=== PATIENT | female | born 1950 | race African-American/Black ===

== ENCOUNTER 2016-07-10 13:36 | Inpatient (IN) | payer OTHER ==
[2016-07-10 13:42] VITALS: BMI 35.9
[2016-07-10] MEDS ORDERED: ONDANSETRON 4 MG/2 ML VIAL IVPUSH ONE (14:34)
[2016-07-10] MEDS ORDERED: SODIUM CHLORIDE 1,000 ML IV STA (14:34)
--- NOTE | 2016-07-10 14:34 | PDOC ---
History of Present Illness - General History Source: Patient Exam Limitations: No Limitations - History of Present Illness Initial Comments: 07/10/16 14:59 The patient is a 66-year-old woman, accompanied by her best friend, with a significant past medical history of hypertension, ovarian cancer (chemotherapy was August 2015; on remission) and scoliosis who presents to the emergency department via walk-in for further evaluation of generalized weakness today. Patient reports several complaints but her most concerning is a rash that she has developed on her upper chest. She reports that it is pruritic. No new foods , soaps, detergents. No new medications. She also reports feeling generally weak with associated symptoms of nausea, loss of appetite, lightheadedness, slight headache and a low blood pressure over the course of a few days. She denies any sick contacts. No fever, chills, chest pain, cough, shortness of breath. Allergies: Latex Past Surgical History: Bilateral meniscal tear surgery. Lap band surgery. Social History: Former smoker (quit approximately 22 years ago). Social EtOH use. No recreational drug use. Primary Care Physician: Dr. Maye Alvarez <Ivelisse Juárez - Last Filed: 07/10/16 15:29> - General History Source: Patient, Old Records Exam Limitations: No Limitations <Kenyatta Mcghee - Last Filed: 07/10/16 16:01> - General Chief Complaint: Pain Stated Complaint: BODYACHES Time Seen by Provider: 07/10/16 13:50 Past History <Ivelisse Juárez - Last Filed: 07/10/16 15:29> - Past Medical History Anemia: No Asthma: No Cancer: Yes (OVARIAN) Cardiac Disorders: No CVA: No COPD: No CHF: No Dementia: No Diabetes: No GI Disorders: No Disorders: No HTN: Yes Hypercholesterolemia: No Liver Disease: No Seizures: No Thyroid Disease: No - Surgical History Abdominal Surgery: Yes (LAP BAND 2002) Appendectomy: No Cardiac Surgery: No Cholecystectomy: No Lung Surgery: No Neurologic Surgery: No Orthopedic Surgery: No - Psycho/Social/Smoking Cessation Hx Anxiety: No Suicidal Ideation: No Smoking History: Former smoker Have you smoked in the past 12 months: No If you are a former smoker, when did you quit?: 22 YRS AGO Information on smoking cessation initiated: No Hx Alcohol Use: Yes (SOCIAL) Drug/Substance Use Hx: No Substance Use Type: None Hx Substance Use Treatment: No <LitzyKenyatta - Last Filed: 07/10/16 16:01> - Past Medical History Allergies/Adverse Reactions: Allergies Allergy/AdvReac Type Severity Reaction Status Date / Time latex AdvReac Mild Itching Verified 07/10/16 13:42 Home Medications: Ambulatory Orders Atenolol [Tenormin -] 50 mg PO DAILY 05/07/11 Hydrochlorothiazide [Hctz] 12.5 mg PO DAILY 03/20/12 Simvastatin [Zocor -] 10 mg PO HS 05/19/13 Tramadol HCl 50 mg PO TID 05/19/13 Oxycodone HCl/Acetaminophen [Percocet 5-325 mg Tablet -] 1 - 2 tab PO Q4H #20 tablet 05/20/13 Review of Systems - Review of Systems Comments:: 07/10/16 15:09 CONSTITUTIONAL: Present: Fever. Generalized weakness. Loss of appetite. Absent: chills, diaphoresis, malaise HEENT: Absent: rhinorrhea, nasal congestion, throat pain, throat swelling, difficulty swallowing, mouth swelling, ear pain, eye pain, visual Changes CARDIOVASCULAR: Absent: chest pain, syncope, palpitations, irregular heart rate , lightheadedness, peripheral edema RESPIRATORY: Absent: cough, shortness of breath, dyspnea with exertion, orthopnea, wheezing, stridor, hemoptysis GASTROINTESTINAL:Absent: abdominal pain, abdominal distension, nausea, vomiting , diarrhea, constipation, melena, hematochezia GENITOURINARY: Absent: dysuria, frequency, urgency, hesitancy, hematuria, flank pain, genital pain MUSCULOSKELETAL: Absent: myalgia, arthralgia, joint swelling SKIN: Absent: rash, itching, pallor HEMATOLOGIC/IMMUNOLOGIC: Absent: easy bleeding, easy bruising, lymphadenopathy, frequent infections ENDOCRINE:Absent: unexplained weight gain, unexplained weight loss, heat intolerance, cold intolerance NEUROLOGIC: Absent: headache, focal weakness or paresthesias, dizziness, unsteady gait, seizure, mental status changes, bladder or bowel incontinence PSYCHIATRIC: Absent: anxiety, depression, suicidal or homicidal ideation, hallucinations <Ivelisse Juárez - Last Filed: 07/10/16 15:29> *Physical Exam - Vital Signs Last Vital Signs Temp Pulse Resp BP Pulse Ox 98.0 F 77 20 105/56 99 07/10/16 13:38 07/10/16 13:38 07/10/16 13:38 07/10/16 13:38 07/10/16 13:38 - Physical Exam Comments: 07/10/16 15:12 GENERAL: Well developed, well nourished. Awake and alert. No acute distress. HEENT: Normocephalic, atraumatic. PERRLA, EOMI. No conjunctival pallor. Sclera are non-icteric. Moist mucous membranes. Oropharynx is clear. NECK: Supple. Full ROM. No JVD. CARDIOVASCULAR: Regular rate and rhythm. No murmurs, rubs, or gallops. PULMONARY: No evidence of respiratory distress. Lungs clear to auscultation bilaterally. No wheezing, rales or rhonchi. ABDOMINAL: Soft. There is some epigastric and right upper quadrant tenderness without rebound or guarding. Non-distended. No organomegaly. Normoactive bowel sounds. MUSCULOSKELETAL: Normal range of motion at all joints. No bony deformities or tenderness. No CVA tenderness. EXTREMITIES: No cyanosis. No clubbing. No edema. No calf tenderness. SKIN: There are several groups of raised clusters around the base of her anterior neck. No jaundice. NEUROLOGICAL: Alert, awake, appropriate. Cranial nerves 2-12 intact. Normal speech. PSYCHIATRIC: Cooperative. Good eye contact. Appropriate mood and affect. <Ivelisse Juárez - Last Filed: 07/10/16 15:29> - Vital Signs Last Vital Signs Temp Pulse Resp BP Pulse Ox 98.0 F 77 20 105/56 99 07/10/16 13:38 07/10/16 13:38 07/10/16 13:38 07/10/16 13:38 07/10/16 13:38 <Kenyatta Mcghee - Last Filed: 07/10/16 16:01> ED Treatment Course - LABORATORY CBC & Chemistry Diagram: 07/10/16 15:15 07/10/16 15:15 - RADIOLOGY Radiograph Interpretation: 07/10/16 15:29 EXAM: RAD/CHEST X-RAY PORTABLE IMPRESSION: Since 03/12/2013, there is an apical lordotic projection but clear lungs and normal mediastinum. An acute process is not seen. The bones and soft tissues are intact <Ivelisse Juárez - Last Filed: 07/10/16 15:29> - LABORATORY CBC & Chemistry Diagram: 07/10/16 15:15 07/10/16 15:15 <Kenyatta Mcghee - Last Filed: 07/10/16 16:01> Medical Decision Making - Medical Decision Making 07/10/16 14:32 66-year-old female with history of hypertension and ovarian cancer status post hysterectomy and chemotherapy presents to the emergency Department with complaints of generalized weakness, dizziness, nausea and epigastric pain and rash to her upper chest. Differential diagnosis includes but is not limited to: Gastritis, pancreatitis, GB disease, ACS, dehydration, electrolyte abnormality, anemia, toxic/metabolic derangement, infection. Plan: 1. Labs 2. EKG 3. IV fluids for hydration 4. Urine analysis 5. Chest x-ray 6. Observe and reevaluate 07/10/16 16:00 Addendum: labs were reviewed and are noted in the EMR. The LFT's are elevated. I have ordered an ultrasound of the abdomen to assess the liver and gall bladder. Will observe and re-evaluate. <Kenyatta Mcghee - Last Filed: 07/10/16 16:01> *DC/Admit/Observation/Transfer - Attestations Scribe Attestion: 07/10/16 15:14 Documentation prepared by Ivelisse Juárez, acting as medical staff manager for Kenyatta Mcghee MD. <Ivelisse Juárez - Last Filed: 07/10/16 15:29> - Attestations Physician Attestion: 07/10/16 14:33 I, Dr. Kenyatta Mcghee, attest that the scribes documentation that appears above has been prepared under my direction and personally reviewed by me in its entirety. I confirmed that the note above accurately reflects all work, treatment, procedures, and medical decision-making performed by me. <Kenyatta Mcghee - Last Filed: 07/10/16 16:01> Diagnosis at time of Disposition: Weakness - Referrals Referrals: Maye Leroy MD [Primary Care Provider] -
[2016-07-10] MEDS ORDERED: ONDANSETRON 4 MG/2 ML VIAL ONE (15:20)
[2016-07-10 15:27] LABS: BASOPHIL 0.2 % (0-2.0); EOSINOPHIL 18.4 % (0-4.5); MCH 32.5 pg (25.7-33.7); MCHC 32.6 g/dl (32.0-36.0); MEAN CELL VOLUME 99.5 fl (80-96); MEAN PLT VOLUME 8.7 fl (7.5-11.1); NEUTROPHILS 50.8 % (42.8-82.8); PLATELET COUNT 99 K/MM3 (134-434); RDW 13.5 % (11.6-15.6); WHITE BLOOD COUNT 3.7 K/mm3 (4.0-10.0)
[2016-07-10 15:47] LABS: ALBUMIN 3.6 g/dl (3.4-5.0); ANION GAP 11 (8-16); BILIRUBIN,TOTAL 1.1 mg/dL (0.2-1.0); CALCIUM 8.8 mg/dL (8.5-10.1); CO2 26 mmol/L (21-32); CREATININE 1.5 mg/dL (0.55-1.02); GLUCOSE,RANDOM 78 mg/dL (74-106); SGOT/AST 145 U/L (15-37); SGPT/ALT 133 U/L (12-78); TOT PROT 7.7 g/dl (6.4-8.2)
[2016-07-10 15:49] LABS: URINE APPEARANCE CLEAR; URINE BILIRUBIN NEGATIVE (NEGATIVE); URINE BLOOD NEGATIVE (NEGATIVE); URINE GLUCOSE (UA) NEGATIVE (NEGATIVE); URINE KETONE NEGATIVE (NEGATIVE); URINE NITRITE NEGATIVE (NEGATIVE); URINE PROTEIN NEGATIVE (NEGATIVE); URINE UROBILINOGEN 4.0 E.U/dl E.U./dl (0.2-1.0)
[2016-07-10 15:50] LABS: ALK PHOS 144 U/L (45-117); TROPONIN I < 0.02 ng/ml (0.00-0.05)
[2016-07-10 16:05] LABS: URINE LEUK ESTERASE TRACE (NEGATIVE)
[2016-07-10 16:06] LABS: URINE COLOR YELLOW
[2016-07-10 16:09] LABS: URINE BACTERIA RARE /hpf (NONE SEEN); URINE HYALINE CAST 111 /lpf; URINE MUCUS RARE; URINE RBC 3 /hpf (0-3); URINE WBC 26 /hpf (3-5)
--- NOTE | 2016-07-10 16:10 | EKG ---
Test Reason : Blood Pressure : / mmHG Vent. Rate : 073 BPM Atrial Rate : 073 BPM P-R Int : 164 ms QRS Dur : 094 ms QT Int : 376 ms P-R-T Axes : 037 -05 046 degrees QTc Int : 414 ms NORMAL SINUS RHYTHM MODERATE VOLTAGE CRITERIA FOR LVH, MAY BE NORMAL VARIANT CANNOT RULE OUT SEPTAL INFARCT , AGE UNDETERMINED ABNORMAL ECG WHEN COMPARED WITH ECG OF 19-MAY-2009 09:30, MINIMAL CRITERIA FOR SEPTAL INFARCT ARE NOW PRESENT NONSPECIFIC T WAVE ABNORMALITY NOW EVIDENT IN ANTERIOR LEADS Confirmed by ABHISHEK NARANJO MD ([id number]) on 07/10/2016 4:10:04 PM Referred By: Confirmed By:ABHISHEK NARANJO MD
[2016-07-10] MEDS ORDERED: METOCLOPRAMIDE HCL INJECTION 10 MG/2 ML VIAL ONE (18:16)
--- NOTE | 2016-07-10 18:32 | PDOC ---
*Physical Exam - Vital Signs Last Vital Signs Temp Pulse Resp BP Pulse Ox 98.0 F 79 19 98/56 96 07/10/16 13:38 07/10/16 17:38 07/10/16 17:38 07/10/16 17:38 07/10/16 17:38 ED Treatment Course - LABORATORY CBC & Chemistry Diagram: 07/14/16 06:10 07/13/16 08:00 - ADDITIONAL ORDERS Additional order review: Laboratory Results 07/10/16 07/10/16 15:39 15:15 Sodium 136 Potassium 4.0 Chloride 99 Carbon Dioxide 26 Anion Gap 11 BUN 15 Creatinine 1.5 H Creat Clearance w eGFR 34.74 Random Glucose 78 D Calcium 8.8 Total Bilirubin 1.1 H D AST 145 H D ALT 133 H D Alkaline Phosphatase 144 H D Creatine Kinase 55 Troponin I < 0.02 Total Protein 7.7 Albumin 3.6 Lipase 202 Urine Color Yellow Urine Appearance Clear Urine pH 5.0 Ur Specific [place] Urine Protein Negative Urine Glucose (UA) Negative Urine Ketones Negative Urine Blood Negative Urine Nitrite Negative Urine Bilirubin Negative Urine Urobilinogen 4.0 e.u/dl H Ur Leukocyte Esterase Trace H D Urine RBC 3 Urine WBC 26 Ur Epithelial Cells Many Urine Bacteria Rare Hyaline Casts 111 Urine Mucus Rare 07/10/16 15:15 RBC 3.32 L MCV 99.5 H MCHC 32.6 RDW 13.5 MPV 8.7 Neutrophils % 50.8 D Lymphocytes % 22.0 D Monocytes % 8.6 Eosinophils % 18.4 H D Basophils % 0.2 - Medications Given in the ED: ED Medications Discontinued Medications Generic Name Dose Route Start Last Admin Trade Name Nura PRN Reason Stop Dose Admin Diphenhydramine HCl 25 mg 07/10/16 15:53 07/10/16 15:45 Benadryl Injection - IVPUSH 07/10/16 15:54 25 mg ONCE ONE Administration Sodium Chloride 1,000 mls @ 1,000 mls/hr 07/10/16 14:34 07/10/16 15:27 Normal Saline - IV 07/10/16 15:33 1,000 mls/hr ASDIR STA Administration Ondansetron HCl 4 mg 07/10/16 14:34 07/10/16 15:27 Zofran Injection IVPUSH 07/10/16 14:35 4 mg ONCE ONE Administration Medical Decision Making - Medical Decision Making 07/10/16 18:30 This patient was signed out to me She is a 66 yo F wiht a history of lung cancer and pancreatic mass Presenting to the Er with a complaint of abdominal pain and nausea No fevers or chills 07/10/16 18:35 Laboratory Tests 05/28/16 05/28/16 07/10/16 09:49 09:49 15:15 WBC 7.0 D 3.7 L D Hgb 11.4 10.8 Hct 33.9 33.1 Plt Count 181 99 L D Sodium Potassium Chloride Carbon Dioxide BUN 17 Creatinine 1.5 H D Total Bilirubin 0.7 AST 19 D ALT 23 Alkaline Phosphatase 88 Urine Ketones Urine Blood Ur Leukocyte Esterase Urine RBC Urine WBC Ur Epithelial Cells 07/10/16 07/10/16 15:15 15:39 WBC Hgb Hct Plt Count Sodium 136 Potassium 4.0 Chloride 99 Carbon Dioxide 26 BUN 15 Creatinine 1.5 H Total Bilirubin 1.1 H D AST 145 H D ALT 133 H D Alkaline Phosphatase 144 H D Urine Ketones Negative Urine Blood Negative Ur Leukocyte Esterase Trace H D Urine RBC 3 Urine WBC 26 Ur Epithelial Cells Many Labs notable for LFT abnormalities Pt remains "itchy" and nauseaous Pending US Pt continues not have nausea and itching 07/10/16 19:27 Pt states her itching has continued Case reviewed with Dr. Anand Will admit to med surg Requesting CT of the abdomen and pelvis to r/o Mass Pt sent for CT with IV 07/10/16 20:02 Creatinine 1.[address] without contrast 07/10/16 21:02 CT preliminarily read as negative Will admit as pt is still nauseous, still has pain, can not tolerate po *DC/Admit/Observation/Transfer Diagnosis at time of Disposition: Weakness, Transaminitis - Discharge Dispostion Condition at time of disposition: Stable Admit: Yes - Referrals - Patient Instructions - Post Discharge Activity
[2016-07-10] MEDS ORDERED: METOCLOPRAMIDE HCL INJECTION 10 MG/2 ML VIAL IVPB ONE (18:38)
[2016-07-11] MEDS ORDERED: SODIUM CHLORIDE 1,000 ML IV SCH (01:40)
[2016-07-11] MEDS ORDERED: ZOLPIDEM TARTRATE 5 MG TABLET PO ONE (02:00)
[2016-07-11] MEDS ORDERED: LEVOFLOXACIN 500 MG IVPB 100 ML IVPB SCH (02:00)
[2016-07-11] MEDS: ONDANSETRON 4 MG/2 ML VIAL IVPB PRN (02:25)
[2016-07-11 08:21] LABS: ALBUMIN 3.3 g/dl (3.4-5.0)
[2016-07-11 08:25] LABS: BILIRUBIN,TOTAL 1.6 mg/dL (0.2-1.0); COCKROFT - GAULT 63.8945; CREATININE 1.6 mg/dL (0.55-1.02); TOT PROT 6.9 g/dl (6.4-8.2)
[2016-07-11 08:35] LABS: MCH 33.2 pg (25.7-33.7); MCHC 33.4 g/dl (32.0-36.0); MEAN CELL VOLUME 99.3 fl (80-96); MEAN PLT VOLUME 8.5 fl (7.5-11.1); PLATELET COUNT 82 K/MM3 (134-434); RDW 13.6 % (11.6-15.6); WHITE BLOOD COUNT 3.8 K/mm3 (4.0-10.0)
--- NOTE | 2016-07-11 09:30 | PN ---
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 Last time I saw her she was receiving therapy of Ovarian cancer. Had surgery and chemotherapy last August 2015 and thought to be in remission. Over a week ago had an Epidural injection for low back pain chronic Dr Carl pain management. Went to [place] with a friend had a good trip returned the . Last week. 3 days ago light headed nausea generalized weakness fever chills yesterday. Also noted is a rash on her ant neck itchy which is new little bit on her forearm right No couph coryza joint pains urinary complaints Has back pain but no abd pain No pets hobbies Former smoker no drug use exposure to persons known illness - Current Medication List Current Medications: Active Medications Acetaminophen (Tylenol -) 650 mg PO Q6H PRN PRN Reason: FEVER OR PAIN Levofloxacin (Levaquin 500 Mg Premixed Ivpb -) 100 mls @ 100 mls/hr IVPB DAILY AUG[place]O Last Admin: 07/11/16 02:25 Dose: 100 mls/hr Potassium Chloride/Dextrose/Sod Cl (D5-1/2ns+20 Meq Kcl -) 1,000 mls @ 100 mls/ hr IV ASDIR [place] Ondansetron HCl (Zofran Injection) 4 mg IVPB Q8H PRN PRN Reason: NAUSEA AND/OR VOMITING Last Admin: 07/11/16 02:25 Dose: 4 mg Zolpidem Tartrate (Ambien -) 5 mg PO HS PRN PRN Reason: INSOMNIA - Objective Vital Signs: Vital Signs Temperature 98.6 F 07/11/16 06:13 Pulse Rate 82 07/11/16 06:13 Respiratory Rate 20 07/11/16 06:13 Blood Pressure 115/73 07/11/16 06:13 O2 Sat by Pulse Oximetry (%) 100 07/11/16 00:05 Constitutional: Yes: Well Nourished, No Distress Eyes: No: Conjunctiva Clear HENT: Yes: WNL, Atraumatic, Normocephalic. No: Tonsillar Exudate Neck: Yes: WNL, Supple. No: Lymphadenopathy Cardiovascular: Yes: Regular Rate and Rhythm, S1, S2. No: Murmur, Rub Respiratory: Yes: WNL, Regular, CTA Bilaterally Gastrointestinal: Yes: WNL, Normal Bowel Sounds, Soft. No: Splenomegaly, Tenderness, Tenderness, Rebound Genitourinary: Yes: WNL. No: CVA Tenderness - Left, CVA Tenderness - Right Extremities: No: Cold, Cool, Cyanosis Edema: No Integumentary: Yes: Other (Macules discrete anterior neck samlll one right foremarm) Labs: CBC, BMP 07/11/16 07:45 07/11/16 06:00 Problem List - Problems (1) Transaminitis Code(s): R74.0 - NONSPEC ELEV OF LEVELS OF TRANSAMNS & LACTIC ACID DEHYDRGNSE (2) Fever Code(s): R50.9 - FEVER, UNSPECIFIED (3) Viral syndrome Code(s): B34.9 - VIRAL INFECTION, UNSPECIFIED Assessment/Plan Laboratory Tests 07/10/16 07/10/16 07/10/16 15:15 15:15 15:39 WBC 3.7 L D Plt Count 99 L D Monocytes % 8.6 Eosinophils % 18.4 H D Basophils % 0.2 Total Bilirubin 1.1 H D AST 145 H D ALT 133 H D Alkaline Phosphatase 144 H D Troponin I < 0.02 Total Protein 7.7 Albumin 3.6 Urine RBC 3 Assessment Fever with chills elevated LFTS rash pancytopenia eosinophilia ? While the obvious would include cholecystitis the rash would be against this. Alternatively I feel she may have a viral disease which I feel is more likely. Has no respiratory complaints Plan Blood and urine cultures ESR CRP HIV EBV CMV Hepatitis markers Ceftriaxone and metronidazole Willis ORTIZ
[2016-07-11 10:54] LABS: C-REACTIVE PROTEIN 8.7 MG/DL (0.00-0.3)
[2016-07-11] MEDS ORDERED: METRONIDAZOLE 500 MG PREMIXED 100 ML IVPB SCH (11:00)
[2016-07-11 11:51] LABS: HIV 1 & 2 AB NEGATIVE; HIV 1 AGp24 NEGATIVE
--- NOTE | 2016-07-11 12:02 | HP ---
Admitting History and Physical - Primary Care Physician PCP: Maye Leroy - Admission History of Present Illness: dictated . - Smoking History Smoking history: Former smoker Have you smoked in the past 12 months: No If you are a former smoker, when did you quit?: 22 YRS AGO - Alcohol/Substance Use Hx Alcohol Use: Yes (SOCIAL) Home Medications - Allergies Allergies/Adverse Reactions: Allergies Allergy/AdvReac Type Severity Reaction Status Date / Time latex AdvReac Mild Itching Verified 07/10/16 13:42 - Home Medications Home Medications: Ambulatory Orders Atenolol [Tenormin -] 50 mg PO DAILY 05/07/11 Cyanocobalamin (Vitamin B-12) [Vitamin B-12] 0 mcg PO ASDIR 07/10/16 Diphenhydramine [Benadryl -] 50 mg PO TID 07/10/16 Ferrous Sulfate 0 mg PO ASDIR 07/10/16 Folic Acid 0.8 mg PO ASDIR 07/10/16 Furosemide [Lasix -] 40 mg PO DAILY 07/10/16 Garlic [Garlic Oil] 1,000 mg PO ASDIR 07/10/16 Losartan Potassium [Cozaar -] 50 mg PO ASDIR 07/10/16 Meloxicam [Mobic] 15 mg PO DAILY 07/10/16 [place]-3S/Dha/Epa/Fish Oil [Fish Oil 1,200 mg Softgel] 1 each PO ASDIR 07/10/16 Ondansetron [Zofran -] 4 mg PO TID 07/10/16 Potassium Chloride 20 meq PO ASDIR 07/10/16 Pregabalin [Lyrica -] 75 mg PO BID 07/10/16 Rosuvastatin Calcium 5 mg PO ASDIR 07/10/16 Sulfasalazine [Sulfas[address] Dr] 500 mg PO ASDIR 07/10/16 Tramadol HCl [Ultram -] 150 mg PO BID 07/10/16 Zolpidem Tartrate [Ambien] 10 mg PO HS 07/10/16 Physical Examination Vital Signs: Vital Signs Temperature 100 F H 07/11/16 11:52 Pulse Rate 85 07/11/16 08:10 Respiratory Rate 20 07/11/16 08:10 Blood Pressure 105/58 07/11/16 08:10 O2 Sat by Pulse Oximetry (%) 100 07/11/16 00:05 Labs: CBC, BMP 07/11/16 07:45 07/11/16 06:00
--- NOTE | 2016-07-11 12:04 | PN ---
Progress Note, Physician - Current Medication List Current Medications: Active Medications Acetaminophen (Tylenol -) 650 mg PO Q6H PRN PRN Reason: FEVER OR PAIN Potassium Chloride/Dextrose/Sod Cl (D5-1/2ns+20 Meq Kcl -) 1,000 mls @ 100 mls/ hr IV ASDIR A[place] Ceftriaxone Sodium (Rocephin 2gm Ivpb (Pre-Docked)) 100 mls @ 200 mls/hr IVPB DAILY A[place]O Last Admin: 07/11/16 10:57 Dose: 200 mls/hr Ondansetron HCl (Zofran Injection) 4 mg IVPB Q8H PRN PRN Reason: NAUSEA AND/OR VOMITING Last Admin: 07/11/16 02:25 Dose: 4 mg Pregabalin (Lyrica -) 75 mg PO BID [place] Sulfasalazine (Azulfidine En-Tabs -) 500 mg PO BID [place] Tramadol HCl (Ultram -) 50 mg PO Q8H PRN PRN Reason: PAIN Zolpidem Tartrate (Ambien -) 5 mg PO HS PRN PRN Reason: INSOMNIA - Objective Vital Signs: Vital Signs Temperature 100 F H 07/11/16 11:52 Pulse Rate 85 07/11/16 08:10 Respiratory Rate 20 07/11/16 08:10 Blood Pressure 105/58 07/11/16 08:10 O2 Sat by Pulse Oximetry (%) 100 07/11/16 00:05 Labs: CBC, BMP 07/11/16 07:45 07/11/16 06:00 Problem List - Problems (1) Fever Code(s): R50.9 - FEVER, UNSPECIFIED (2) Transaminitis Code(s): R74.0 - NONSPEC ELEV OF LEVELS OF TRANSAMNS & LACTIC ACID DEHYDRGNSE (3) Viral syndrome Code(s): B34.9 - VIRAL INFECTION, UNSPECIFIED (4) Weakness Code(s): R53.1 - WEAKNESS (5) Pancytopenia Code(s): D61.818 - OTHER PANCYTOPENIA (6) Rash Code(s): R21 - RASH AND OTHER NONSPECIFIC SKIN ERUPTION
[2016-07-11] MEDS: traMADol HCL 50 MG TABLET PO PRN ×2 (13:34→21:36)
[2016-07-11] MEDS: ACETAMINOPHEN 325 MG TABLET (FP) PO PRN ×2 (13:34→22:49)
--- NOTE | 2016-07-11 13:39 | HP ---
DATE OF ADMISSION: 07/10/2016 This patient, a 66-year-old pleasant female, is admitted to the hospital when she presented to emergency room yesterday with a chief complaint of not feeling well for the last 2 or 3 days, having nausea, rash on the upper chest, as well as generalized weakness. Patient denies any fevers or such. Patient also complained of loss of appetite, lightheadedness, slight headache, and also said that her pressure was running low for the last few days. Patient denied any fever, as I mentioned. Workup in the emergency room showed elevated liver enzymes. Ultrasound of the abdomen was done, which was unremarkable except cholelithiasis. CT of the abdomen and pelvis was also done, which also showed cholelithiasis but no acute pathology. Patient admitted to the hospital as she continued to not feel well, as well as having fever also. Cultures were sent and antibiotics were started. The patient's past medical history is significant for ovarian CA status post chemotherapy in August 2015 and currently she is in remission. Other past medical history is significant for hypertension, overweight. Past surgical history is significant for bilateral meniscus TSLV, as well as lap band surgery. Patient is a former smoker, quit about 22 years ago. Patient does not drink. Patient has allergies to LATEX. FAMILY HISTORY: Nothing contributory. SOCIAL HISTORY: As I mentioned, she is a former smoker. She drinks only socially. No drugs. She recently traveled to [place]. REVIEW OF SYMPTOMS: Positive for nausea and chills and weakness as well as rash. Denies chest pain. Denies abdominal pain. Denies any vomiting. Denies any urinary burning although reports dark-colored urine. Patient seen by me today on the floor and chart reviewed. Case was discussed with the emergency room physician last night also. I also reviewed patient's home medications, which includes Tenormin 50 mg daily, hydrochlorothiazide 12.5 mg daily, fish oil, Ambien 10 mg daily, Lasix 40 mg daily, multiple vitamin, losartan 50 mg daily, Lyrica 75 mg daily, B12 supplement, Crestor 5 mg daily, folic acid 800 mg daily, sulfasalazine 500 mg extended tablet daily, tramadol 50 mg p.r.n., as well as meloxicam 15 mg daily. Reviewing the medicines, I discussed with the patient and patient also tells me that she also has history of rheumatoid arthritis as well as a history of lumbar radiculopathy. PHYSICAL EXAMINATION: General: She is conscious, cooperative, not in distress, alert and awake. Neck: Supple. There is no lymphadenopathy. No carotid bruit. Trachea midline. Thyroid not enlarged. Eyes: Sclerae are not icteric. Pupils are reactive to light and accommodation. Heart: Heart sounds are regular. Lungs: Clear to auscultation. Abdomen: Soft, nontender. Extremities: No edema. Neurological: She is alert and awake, nonfocal. Her blood work done in the emergency room showed white count of 3.7, hemoglobin of 10.8, hematocrit 33.1, platelets were significant for 99,000, and repeat platelets today 82,000, and hemoglobin 9.6, hematocrit 28.6. Chemistries were significant for total bilirubin 1.1 yesterday and 1.6 today, AST 155, today ALT 132 and alkaline phosphatase 144. CRP is elevated 8.7. Cardiac enzymes are negative. Lipase is normal. Urine shows WBC 26. Serology for HIV is negative. Ultrasound of the abdomen as well as CAT scan, as I mentioned, were significant for cholelithiasis. Chest x-ray did not show any acute pathology. ASSESSMENT AND PLAN: Patient, a 67-year-old female with past medical history as mentioned, is admitted to the hospital with fever and chills with elevated liver enzymes. Patient also has rash as well as CBC significant for pancytopenia. Etiology to be determined, likely viral. Cultures are sent. Empiric antibiotics. I discussed case with Dr. Pedro also. Will discontinue Flagyl as there is no evidence of cholecystitis by exam as well as by CT scan. Further recommendations will be guided by clinical course. LISSY PLASENCIA M.D. [id number]
[2016-07-11] MEDS: D5-1/2NS+20 MEQ KCL - 1,000 ML IV SCH (13:45)
[2016-07-11] MEDS: ZOLPIDEM TARTRATE 5 MG TABLET PO PRN (21:36)
[2016-07-11] MEDS: PREGABALIN 75 MG CAPSULE PO SCH (21:36)
[2016-07-12 08:15] LABS: MCH 33.1 pg (25.7-33.7); MCHC 33.1 g/dl (32.0-36.0); MEAN CELL VOLUME 99.8 fl (80-96); PLATELET COUNT 90 K/MM3 (134-434); RDW 13.9 % (11.6-15.6); WHITE BLOOD COUNT 4.2 K/mm3 (4.0-10.0)
[2016-07-12] MEDS: ACETAMINOPHEN 325 MG TABLET (FP) PO PRN ×2 (08:27→18:38)
[2016-07-12 08:32] LABS: ALBUMIN 2.9 g/dl (3.4-5.0); CALCIUM 8.6 mg/dL (8.5-10.1); MAGNESIUM 1.8 mg/dL (1.8-2.4)
[2016-07-12] MEDS: D5-1/2NS+20 MEQ KCL - 1,000 ML IV SCH ×2 (08:32→19:30)
[2016-07-12 08:34] LABS: BILIRUBIN,TOTAL 2.1 mg/dL (0.2-1.0); COCKROFT - GAULT 85.1955; CREATININE 1.2 mg/dL (0.55-1.02); TOT PROT 6.5 g/dl (6.4-8.2)
--- NOTE | 2016-07-12 09:16 | PN ---
Progress Note (short form) - Note Progress Note: SUBJECTIVE: Patient seen and examined. Comfortable. Continues to have fever. No distress. Overall looks better. OBJECTIVE: Vital Signs 07/12/16 06:00 Temperature 98.8 F Pulse Rate 85 Respiratory 20 Rate Blood Pressure 106/66 Intake & Output 07/11/16 07/12/16 07/12/16 23:59 07:59 15:59 Intake Total 900 1200 Balance 900 1200 Intake: IV 1200 D5-1/2Ns+20 Meq KCl - 1, 1200 000 ml @ 100 mls/hr IV ASDIR [facility] Rx#:[id number] Oral 900 Other: Voiding Method Toilet # Unmeasured Voids Void 2 Bowel Movement No No Active Medications Acetaminophen (Tylenol -) 650 mg PO Q6H PRN PRN Reason: FEVER OR PAIN Last Admin: 07/12/16 08:27 Dose: 650 mg Potassium Chloride/Dextrose/Sod Cl (D5-1/2ns+20 Meq Kcl -) 1,000 mls @ 100 mls/ hr IV [facility]IR [facility] Last Admin: 07/12/16 08:32 Dose: 100 mls/hr Ceftriaxone Sodium (Rocephin 2gm Ivpb (Pre-Docked)) 100 mls @ 200 mls/hr IVPB DAILY [facility] Last Admin: 07/12/16 09:31 Dose: 200 mls/hr Ondansetron HCl (Zofran Injection) 4 mg IVPB Q8H PRN PRN Reason: NAUSEA AND/OR VOMITING Last Admin: 07/11/16 02:25 Dose: 4 mg Pregabalin (Lyrica -) 75 mg PO BID [facility] Last Admin: 07/12/16 09:31 Dose: 75 mg Sulfasalazine (Azulfidine En-Tabs -) 500 mg PO BID [facility] Last Admin: 07/12/16 09:32 Dose: 500 mg Tramadol HCl (Ultram -) 50 mg PO Q8H PRN PRN Reason: PAIN Last Admin: 07/12/16 09:32 Dose: 50 mg Zolpidem Tartrate (Ambien -) 5 mg PO HS PRN PRN Reason: INSOMNIA Last Admin: 07/11/16 21:36 Dose: 5 mg CBC, BMP 07/12/16 06:38 07/12/16 06:38 Laboratory Results - last 24 hr 07/11/16 07/11/16 07/11/16 06:00 10:00 10:00 WBC RBC Hgb Hct MCV MCHC RDW Plt Count MPV Neutrophils % Lymphocytes % Sodium Potassium Chloride Carbon Dioxide Anion Gap BUN Creatinine Creat Clearance w eGFR Random Glucose Calcium Magnesium Total Bilirubin AST ALT Alkaline Phosphatase C-Reactive Protein 8.7 H Cancelled Total Protein Albumin Monoscreen HIV 1&2 Antibody Screen Negative HIV P24 Antigen Negative 07/12/16 07/12/16 07/12/16 06:38 06:38 06:38 WBC 4.2 RBC 2.90 L Hgb 9.6 L Hct 28.9 L MCV 99.8 H MCHC 33.1 RDW 13.9 Plt Count 90 L MPV 9.0 Neutrophils % Y Lymphocytes % Y Sodium 140 Potassium 4.2 Chloride 104 Carbon Dioxide 23 Anion Gap 13 BUN 12 D Creatinine 1.2 H D Creat Clearance w eGFR 44.95 Random Glucose 122 H D Calcium 8.6 Magnesium 1.8 Total Bilirubin 2.1 H D AST 136 H ALT 134 H Alkaline Phosphatase 182 H D C-Reactive Protein Total Protein 6.5 Albumin 2.9 L Monoscreen Negative HIV 1&2 Antibody Screen HIV P24 Antigen Microbiology 07/11/16 02:00 Blood Culture - Preliminary Blood - Peripheral Venous NO GROWTH OBTAINED AFTER 24 HOURS, INCUBATION TO CONTINUE FOR 4 DAYS. 07/11/16 02:30 Blood Culture - Preliminary Blood - Peripheral Venous NO GROWTH OBTAINED AFTER 24 HOURS, INCUBATION TO CONTINUE FOR 4 DAYS. PHYSICAL EXAMINATION: Constitutional: Awake. Alert. Cooperative. No distress. Neck: Supple. Trachea midline. No lymphadenopathy. No carotid bruits. Thyroid is not enlarged. Eyes: Sclera non-icteric. PERRLA. Cardiovascular: Regular rate and rhythm. Respiratory: Clear to auscultation. Gastrointestinal: Soft. Non-tender. Extremities: No edema. Neurological: Awake. Alert. Nonfocal. ASSESSMENT & PLAN: - Continue antibiotics. - Follow up cultures and serology. - Hold blood pressure medications. - Ambulate. - Monitor liver function tests. - Will follow. Documentation prepared by Ivelisse Juárez, acting as a medical claims manager for Alisha Anand MD. <Ivelisse Juárez - Last Filed: 07/12/16 10:53> Problem List - Problems (1) Fever Code(s): R50.9 - FEVER, UNSPECIFIED (2) Transaminitis Code(s): R74.0 - NONSPEC ELEV OF LEVELS OF TRANSAMNS & LACTIC ACID DEHYDRGNSE (3) Viral syndrome Code(s): B34.9 - VIRAL INFECTION, UNSPECIFIED (4) Weakness Code(s): R53.1 - WEAKNESS (5) Pancytopenia Code(s): D61.818 - OTHER PANCYTOPENIA (6) Rash Code(s): R21 - RASH AND OTHER NONSPECIFIC SKIN ERUPTION <Alisha Anand - Last Filed: 07/12/16 09:16> - Problems (1) Fever Code(s): R50.9 - FEVER, UNSPECIFIED (2) Pancytopenia Code(s): D61.818 - OTHER PANCYTOPENIA (3) Rash Code(s): R21 - RASH AND OTHER NONSPECIFIC SKIN ERUPTION (4) Transaminitis Code(s): R74.0 - NONSPEC ELEV OF LEVELS OF TRANSAMNS & LACTIC ACID DEHYDRGNSE (5) Viral syndrome Code(s): B34.9 - VIRAL INFECTION, UNSPECIFIED <Ivelisse Juárez - Last Filed: 07/12/16 10:53>
[2016-07-12] MEDS ORDERED: PT OWN MED DRAWER 7, Y5N ONE (09:26)
[2016-07-12] MEDS: PREGABALIN 75 MG CAPSULE PO SCH ×2 (09:31→21:22)
[2016-07-12] MEDS: traMADol HCL 50 MG TABLET PO PRN ×2 (09:32→21:25)
[2016-07-12 13:34] LABS: METAMYELOCYTE 1 % (0-2); PLATELET ESTIMATE ADEQUATE (NORMAL)
--- NOTE | 2016-07-12 14:53 | PN ---
Progress Note, Physician Chief Complaint: ID Today patient informed me she has a history of Rheumatoid arthritis and has been on sulfasalazine whcih over the last few months has been increased in dose. Presently she has minimal joint complaints certainly nothing acute or different. Note rash now on her face which she says is pruritic along with neck rash and fevers which continue - Current Medication List Current Medications: Active Medications Acetaminophen (Tylenol -) 650 mg PO Q6H PRN PRN Reason: FEVER OR PAIN Last Admin: 07/12/16 08:27 Dose: 650 mg Potassium Chloride/Dextrose/Sod Cl (D5-1/2ns+20 Meq Kcl -) 1,000 mls @ 100 mls/ hr IV [facility]IR [facility] Last Admin: 07/12/16 08:32 Dose: 100 mls/hr Ceftriaxone Sodium (Rocephin 2gm Ivpb (Pre-Docked)) 100 mls @ 200 mls/hr IVPB DAILY [facility] Last Admin: 07/12/16 09:31 Dose: 200 mls/hr Ondansetron HCl (Zofran Injection) 4 mg IVPB Q8H PRN PRN Reason: NAUSEA AND/OR VOMITING Last Admin: 07/11/16 02:25 Dose: 4 mg Pregabalin (Lyrica -) 75 mg PO BID [facility] Last Admin: 07/12/16 09:31 Dose: 75 mg Sulfasalazine (Azulfidine En-Tabs -) 500 mg PO BID [facility] Last Admin: 07/12/16 09:32 Dose: 500 mg Tramadol HCl (Ultram -) 50 mg PO Q8H PRN PRN Reason: PAIN Last Admin: 07/12/16 09:32 Dose: 50 mg Zolpidem Tartrate (Ambien -) 5 mg PO HS PRN PRN Reason: INSOMNIA Last Admin: 07/11/16 21:36 Dose: 5 mg - Objective Vital Signs: Vital Signs Temperature 100.7 F H 07/12/16 10:00 Pulse Rate 100 H 07/12/16 10:00 Respiratory Rate 20 07/12/16 10:00 Blood Pressure 122/61 07/12/16 10:00 O2 Sat by Pulse Oximetry (%) 97 07/11/16 20:55 Constitutional: Yes: Well Nourished, No Distress Eyes: Yes: WNL, Conjunctiva Clear HENT: Yes: WNL, Atraumatic, Normocephalic. No: Pharyngeal Erythema, Tonsillar Exudate Neck: Yes: WNL Cardiovascular: Yes: Regular Rate and Rhythm, S1, S2. No: Murmur Respiratory: Yes: WNL, Regular, CTA Bilaterally. No: Rales, Rhonchi Gastrointestinal: Yes: WNL, Normal Bowel Sounds, Soft. No: Tenderness, Tenderness, Rebound Musculoskeletal: No: Joint Swelling Integumentary: Yes: Other (macules anterior neck and face) Labs: CBC, BMP 07/12/16 06:38 07/12/16 06:38 Problem List - Problems (1) Transaminitis Code(s): R74.0 - NONSPEC ELEV OF LEVELS OF TRANSAMNS & LACTIC ACID DEHYDRGNSE (2) Fever Code(s): R50.9 - FEVER, UNSPECIFIED (3) Viral syndrome Code(s): B34.9 - VIRAL INFECTION, UNSPECIFIED (4) Drug reaction Code(s): T88.7XXA - UNSP ADVERSE EFFECT OF DRUG OR MEDICAMENT, INIT ENCNTR Assessment/Plan Microbiology 07/11/16 11:30 Urine - Urine Clean Catch Urine Culture - Final NO GROWTH OBTAINED 07/11/16 02:30 Blood - Peripheral Venous Blood Culture - Preliminary NO GROWTH OBTAINED AFTER 24 HOURS, INCUBATION TO CONTINUE FOR 4 DAYS. 07/11/16 02:00 Blood - Peripheral Venous Blood Culture - Preliminary NO GROWTH OBTAINED AFTER 24 HOURS, INCUBATION TO CONTINUE FOR 4 DAYS. Laboratory Tests 07/10/16 07/10/16 07/10/16 15:15 15:15 15:39 WBC 3.7 L D Hgb Hct Neutrophils % Lymphocytes % Monocytes % Band Neutrophils ESR BUN 15 Creatinine 1.5 H Total Bilirubin AST ALT Alkaline Phosphatase C-Reactive Protein Urine RBC 3 Urine WBC 26 Urine Bacteria Rare Lyme Disease IgG/IgM CMV IgG Ab CMV IgM Ab Hepatitis A IgM Ab Hep Bs Antigen Hep Bs Antibody Hep B Core Total Ab Hepatitis C Ab (EIA) Monoscreen 07/11/16 07/11/16 07/12/16 06:00 07:45 06:38 WBC 3.8 L 4.2 Hgb 9.6 L Hct 28.9 L Neutrophils % 58.0 Lymphocytes % 21.0 Monocytes % 49.0 H D Band Neutrophils 2.0 D ESR BUN 18 Creatinine 1.6 H Total Bilirubin AST ALT Alkaline Phosphatase C-Reactive Protein 8.7 H Urine RBC Urine WBC Urine Bacteria Lyme Disease IgG/IgM CMV IgG Ab CMV IgM Ab Hepatitis A IgM Ab Hep Bs Antigen Hep Bs Antibody Hep B Core Total Ab Hepatitis C Ab (EIA) Monoscreen 07/12/16 07/12/16 07/12/16 06:38 06:38 06:38 WBC Hgb Hct Neutrophils % Lymphocytes % Monocytes % Band Neutrophils ESR 84 H BUN 12 D Creatinine 1.2 H D Total Bilirubin 2.1 H D AST 136 H ALT 134 H Alkaline Phosphatase 182 H D C-Reactive Protein Urine RBC Urine WBC Urine Bacteria Lyme Disease IgG/IgM CMV IgG Ab Pending CMV IgM Ab Pending Hepatitis A IgM Ab Hep Bs Antigen Hep Bs Antibody Hep B Core Total Ab Hepatitis C Ab (EIA) Monoscreen 07/12/16 07/12/16 07/12/16 06:38 06:38 06:38 WBC Hgb Hct Neutrophils % Lymphocytes % Monocytes % Band Neutrophils ESR BUN Creatinine Total Bilirubin AST ALT Alkaline Phosphatase C-Reactive Protein Urine RBC Urine WBC Urine Bacteria Lyme Disease IgG/IgM Pending CMV IgG Ab CMV IgM Ab Hepatitis A IgM Ab Hep Bs Antigen Hep Bs Antibody Pending Hep B Core Total Ab Pending Hepatitis C Ab (EIA) Monoscreen Negative 07/12/16 06:38 WBC Hgb Hct Neutrophils % Lymphocytes % Monocytes % Band Neutrophils ESR BUN Creatinine Total Bilirubin AST ALT Alkaline Phosphatase C-Reactive Protein Urine RBC Urine WBC Urine Bacteria Lyme Disease IgG/IgM CMV IgG Ab CMV IgM Ab Hepatitis A IgM Ab Pending Hep Bs Antigen Pending Hep Bs Antibody Hep B Core Total Ab Hepatitis C Ab (EIA) Pending Monoscreen Assessment Constellations of findings rash fevers renal insufficiency active urine sediment pancytopenia all c/w drug reaction to Sulfasalazine ( sulfa reaction) Plan Rheum consult STOP medication Discussed with PMD Thus far no evidence for Guanakito Pdero MD
[2016-07-12] MEDS: ONDANSETRON 4 MG/2 ML VIAL IVPB PRN (18:31)
[2016-07-12] MEDS: ZOLPIDEM TARTRATE 5 MG TABLET PO PRN (23:40)
[2016-07-13] MEDS: ACETAMINOPHEN 325 MG TABLET (FP) PO PRN ×3 (01:44→21:50)
[2016-07-13] MEDS: D5-1/2NS+20 MEQ KCL - 1,000 ML IV SCH ×4 (04:29→23:30)
--- NOTE | 2016-07-13 08:30 | CONSULT ---
Consult Consult Specialty:: Rheumatology - History of Present Illness History of Present Illness: 66 year old female with history of hypertension, spinal stenosis, S/P ovarian carcinoma -finished chemotherapy on July 2015, peripheral neuropathy (probably related to chemotherapy), and progressive inflammatory arthritis, MAXX positive and all other serology negative. Admitted with general malaise, weakness, fever and on admission she was found to have pancytopenia. HPI. The patient reports a 1 week history of general malaise, weakness, she had difficulty in standing up, malaise and fever. She also develoepda pruritic skin in chest and neck. Since admission she has had fever (yesterday 102.4) and laboratory work-up revealed CBC with WBC of 3.7, Hgb 10.8, platelets 99, AST 145, ALT 133 and ESR 84. Since admission she is feeling better, however continues having fever\. RE/O seronegative rheumatoid arthritis... I initially sawe the patient iin my office on 08/12/15. at that time she had, on the PE, 8 swollen and 4 tender joints. I started her on NSAIDs and on 05/26/16 she had progression of the disease with 20 swollen joints. I started the patient on Sulfasalazine, initially 500 mg BID and then [id number] to 1 gr BID. The pain and swelling improved. - History Source History Provided By: Patient - Past Medical History Cardio/Vascular: Yes: HTN Reproductive: Yes: Other (s/p ovarian carcinoma) Musculoskeletal: Yes: Other (Chronic low back pain. Spinal stenosis) - Alcohol/Substance Use Hx Alcohol Use: Yes (SOCIAL) - Smoking History Smoking history: Former smoker Have you smoked in the past 12 months: No If you are a former smoker, when did you quit?: 22 YRS AGO Home Medications - Allergies Allergies/Adverse Reactions: Allergies Allergy/AdvReac Type Severity Reaction Status Date / Time latex AdvReac Mild Itching Verified 07/10/16 13:42 - Home Medications Home Medications: Ambulatory Orders Atenolol [Tenormin -] 50 mg PO DAILY 05/07/11 Cyanocobalamin (Vitamin B-12) [Vitamin B-12] 0 mcg PO ASDIR 07/10/16 Diphenhydramine [Benadryl -] 50 mg PO TID 07/10/16 Ferrous Sulfate 0 mg PO ASDIR 07/10/16 Folic Acid 0.8 mg PO ASDIR 07/10/16 Furosemide [Lasix -] 40 mg PO DAILY 07/10/16 Garlic [Garlic Oil] 1,000 mg PO ASDIR 07/10/16 Losartan Potassium [Cozaar -] 50 mg PO ASDIR 07/10/16 Meloxicam [Mobic] 15 mg PO DAILY 07/10/16 [place]-3S/Dha/Epa/Fish Oil [Fish Oil 1,200 mg Softgel] 1 each PO ASDIR 07/10/16 Ondansetron [Zofran -] 4 mg PO TID 07/10/16 Potassium Chloride 20 meq PO ASDIR 07/10/16 Pregabalin [Lyrica -] 75 mg PO BID 07/10/16 Rosuvastatin Calcium 5 mg PO ASDIR 07/10/16 Sulfasalazine [Sulfasalazine Dr] 500 mg PO ASDIR 07/10/16 Tramadol HCl [Ultram -] 150 mg PO BID 07/10/16 Zolpidem Tartrate [Ambien] 10 mg PO HS 07/10/16 Review of Systems - Review of Systems Constitutional: reports: Fever, Malaise, Weakness Eyes: reports: No Symptoms HENT: reports: No Symptoms Neck: reports: No Symptoms Cardiovascular: reports: No Symptoms Respiratory: reports: No Symptoms Gastrointestinal: reports: Nausea, Vomiting Physical Exam Vital Signs: Vital Signs Temperature 99.9 F H 07/13/16 05:57 Pulse Rate 100 H 07/13/16 05:57 Respiratory Rate 20 07/13/16 05:57 Blood Pressure 122/73 07/13/16 05:57 O2 Sat by Pulse Oximetry (%) 97 07/11/16 20:55 Constitutional: Yes: Mild Distress Eyes: Yes: WNL HENT: Yes: WNL Neck: Yes: WNL Cardiovascular: Yes: WNL Respiratory: Yes: WNL Gastrointestinal: Yes: WNL Musculoskeletal: Yes: Other (No active joints) Labs: CBC, BMP 07/12/16 06:38 07/12/16 06:38 Laboratory Tests 07/10/16 07/12/16 07/12/16 15:39 06:00 06:38 ESR Total Bilirubin 2.1 H D AST 136 H ALT 134 H Alkaline Phosphatase 182 H D Total Protein 6.5 Albumin 2.9 L Urine Color Yellow Urine Appearance Clear Urine pH 5.0 Ur Specific [place] 1.015 Urine Protein Negative Urine Glucose (UA) Negative Urine Ketones Negative Urine Blood Negative Urine Nitrite Negative Urine Bilirubin Negative Urine Urobilinogen 4.0 e.u/dl H Ur Leukocyte Esterase Trace H D Urine RBC 3 Urine WBC 26 Ur Epithelial Cells Many Rheumatoid Factor < 10.0 07/12/16 06:38 ESR 84 H Total Bilirubin AST ALT Alkaline Phosphatase Total Protein Albumin Urine Color Urine Appearance Urine pH Ur Specific [place] Urine Protein Urine Glucose (UA) Urine Ketones Urine Blood Urine Nitrite Urine Bilirubin Urine Urobilinogen Ur Leukocyte Esterase Urine RBC Urine WBC Ur Epithelial Cells Rheumatoid Factor Problem List - Problems (1) Drug reaction Assessment/Plan: Skin rash, cytopenia and elevation of liver function tests. Rule out side effect of Sulfasalazine. Code(s): T88.7XXA - UNSP ADVERSE EFFECT OF DRUG OR MEDICAMENT, INIT ENCNTR (2) Rheumatoid arthritis of multiple sites without rheumatoid factor Assessment/Plan: Probable seronegative rheumatoid arthritis. Very good response to Sulfasalazine. At the present time in remission. Once the patient is discharged I will evaluate treating her with a different DMARD. Code(s): M06.09 - RHEUMATOID ARTHRITIS W/O RHEUMATOID FACTOR, MULTIPLE SITES
[2016-07-13] MEDS: traMADol HCL 50 MG TABLET PO PRN (09:05)
[2016-07-13] MEDS: PREGABALIN 75 MG CAPSULE PO SCH ×2 (09:07→21:28)
[2016-07-13 09:11] LABS: MCH 32.8 pg (25.7-33.7); MCHC 33.3 g/dl (32.0-36.0); MEAN CELL VOLUME 98.3 fl (80-96); MEAN PLT VOLUME 8.8 fl (7.5-11.1); PLATELET COUNT 99 K/MM3 (134-434); RDW 14.2 % (11.6-15.6); WHITE BLOOD COUNT 4.3 K/mm3 (4.0-10.0)
[2016-07-13 09:37] LABS: ALBUMIN 2.6 g/dl (3.4-5.0); CALCIUM 8.1 mg/dL (8.5-10.1); COCKROFT - GAULT 92.939; CREATININE 1.1 mg/dL (0.55-1.02)
[2016-07-13 09:39] LABS: BILIRUBIN,TOTAL 1.7 mg/dL (0.2-1.0); TOT PROT 6.1 g/dl (6.4-8.2)
[2016-07-13] MEDS ORDERED: traMADol HCL 50 MG TABLET PO PRN (11:24)
--- NOTE | 2016-07-13 11:27 | PN ---
Progress Note, Physician Chief Complaint: Events noted Has recurrent fever She still has rash feels fatigued , chills difficulty sleeping - Current Medication List Current Medications: Active Medications Acetaminophen (Tylenol -) 650 mg PO Q6H PRN PRN Reason: FEVER OR PAIN Last Admin: 07/13/16 01:44 Dose: 650 mg Potassium Chloride/Dextrose/Sod Cl (D5-1/2ns+20 Meq Kcl -) 1,000 mls @ 100 mls/ hr IV ASDIR [facility] Last Admin: 07/13/16 09:07 Dose: Not Given Ondansetron HCl (Zofran Injection) 4 mg IVPB Q8H PRN PRN Reason: NAUSEA AND/OR VOMITING Last Admin: 07/12/16 18:31 Dose: 4 mg Pregabalin (Lyrica -) 75 mg PO BID [facility] Last Admin: 07/13/16 09:07 Dose: 75 mg Tramadol HCl (Ultram -) 100 mg PO Q8H PRN PRN Reason: PAIN Zolpidem Tartrate (Ambien -) 10 mg PO HS PRN PRN Reason: INSOMNIA - Objective Vital Signs: Vital Signs Temperature 99.5 F 07/13/16 09:08 Pulse Rate 96 H 07/13/16 09:08 Respiratory Rate 20 07/13/16 09:08 Blood Pressure 119/67 07/13/16 09:08 O2 Sat by Pulse Oximetry (%) 97 07/11/16 20:55 Constitutional: Yes: No Distress Neck: Yes: Other (raised skin lesions over neck and face) Cardiovascular: Yes: Regular Rate and Rhythm Respiratory: Yes: CTA Bilaterally Gastrointestinal: Yes: Normal Bowel Sounds, Soft, Abdomen, Obese. No: Distention, Hepatomegaly, Tenderness Extremities: Yes: Other (no joint swellings) Edema: No Neurological: Yes: WNL Psychiatric: Yes: Alert, Oriented Labs: CBC, BMP 07/13/16 08:00 07/13/16 08:00 Problem List - Problems (1) Drug reaction Code(s): T88.7XXA - UNSP ADVERSE EFFECT OF DRUG OR MEDICAMENT, INIT ENCNTR Qualifiers: Encounter type: subsequent encounter Qualified Code(s): T88.7XXD - Unspecified adverse effect of drug or medicament, subsequent encounter (2) Fever Code(s): R50.9 - FEVER, UNSPECIFIED Qualifiers: Fever type: drug-induced Qualified Code(s): R50.2 - Drug induced fever (3) Pancytopenia Code(s): D61.818 - OTHER PANCYTOPENIA (4) Rash Code(s): R21 - RASH AND OTHER NONSPECIFIC SKIN ERUPTION (5) Rheumatoid arthritis of multiple sites without rheumatoid factor Code(s): M06.09 - RHEUMATOID ARTHRITIS W/O RHEUMATOID FACTOR, MULTIPLE SITES (6) Transaminitis Code(s): R74.0 - NONSPEC ELEV OF LEVELS OF TRANSAMNS & LACTIC ACID DEHYDRGNSE Assessment/Plan PLAN Sulphasalazine dc yesterday antibiotics dc yesterday viral serology negative blood cultures negative urine culture negative continue iv fluids spoke with ID and Rheumatology -- likely to be drug reaction to sulpha explained all findings and test results to pt continue with current meds -- monitor CBC-- leucopenia better --monitor LFT
--- NOTE | 2016-07-13 15:23 | PN ---
Progress Note (short form) - Note Progress Note: still with fevers and rash sulfasalazine just d/niall yesterday Vital Signs Period Temp Pulse Resp BP Sys/Perez Pulse Ox Last 24 Hr 99.5 F-102.4 F 91-103 20-20 119-134/67-73 no oral lesions cor-rrr lungs clear abd soft,nt ext no edema rash scattered on the chest, ?erythema on her cheeks and bridge of nose CBC, BMP 07/13/16 08:00 07/13/16 08:00 Laboratory Tests 07/11/16 07/12/16 07/12/16 10:00 06:38 06:38 Lyme Disease IgG/IgM < 0.91 CMV IgG Ab 3.60 H CMV IgM Ab < 30.0 Monoscreen HIV 1&2 Antibody Screen Negative HIV P24 Antigen Negative 07/12/16 06:38 Lyme Disease IgG/IgM CMV IgG Ab CMV IgM Ab Monoscreen Negative HIV 1&2 Antibody Screen HIV P24 Antigen Microbiology 07/11/16 02:00 Blood - Peripheral Venous Blood Culture - Preliminary NO GROWTH OBTAINED AFTER 48 HOURS, INCUBATION TO CONTINUE FOR 3 DAYS. 07/11/16 02:30 Blood - Peripheral Venous Blood Culture - Preliminary NO GROWTH OBTAINED AFTER 48 HOURS, INCUBATION TO CONTINUE FOR 3 DAYS. 07/11/16 11:30 Urine - Urine Clean Catch Urine Culture - Final NO GROWTH OBTAINED Current Medications Acetaminophen (Tylenol -) 650 mg PO Q6H PRN PRN Reason: FEVER OR PAIN Last Admin: 07/13/16 14:11 Dose: 650 mg Potassium Chloride/Dextrose/Sod Cl (D5-1/2ns+20 Meq Kcl -) 1,000 mls @ 100 mls/ hr IV [facility]IR [facility] Last Admin: 07/13/16 14:10 Dose: 100 mls/hr Ondansetron HCl (Zofran Injection) 4 mg IVPB Q8H PRN PRN Reason: NAUSEA AND/OR VOMITING Last Admin: 07/12/16 18:31 Dose: 4 mg Pregabalin (Lyrica -) 75 mg PO BID [facility] Last Admin: 07/13/16 09:07 Dose: 75 mg Tramadol HCl (Ultram -) 100 mg PO Q8H PRN PRN Reason: PAIN Zolpidem Tartrate (Ambien -) 10 mg PO HS PRN PRN Reason: INSOMNIA a/p suspect drug reaction to sulfa now d/niall viral serologies negative will observe antibiotics d/niall yesterday
[2016-07-13 20:16] LABS: PLATELET ESTIMATE DECREASED (NORMAL)
[2016-07-13] MEDS: ONDANSETRON 4 MG/2 ML VIAL IVPB PRN (20:37)
[2016-07-13] MEDS: ZOLPIDEM TARTRATE 5 MG TABLET PO PRN (21:28)
[2016-07-14 00:06] LABS: HEP B SURFACE AB Reactive (.)
[2016-07-14 07:44] LABS: MCH 32.8 pg (25.7-33.7); MCHC 33.1 g/dl (32.0-36.0); MEAN PLT VOLUME 8.7 fl (7.5-11.1); PLATELET COUNT 120 K/MM3 (134-434); RDW 14.3 % (11.6-15.6); WHITE BLOOD COUNT 6.5 K/mm3 (4.0-10.0)
[2016-07-14 08:35] LABS: ALBUMIN 2.7 g/dl (3.4-5.0); BILIRUBIN,TOTAL 1.6 mg/dL (0.2-1.0); CALCIUM 8.5 mg/dL (8.5-10.1); COCKROFT - GAULT 102.2295; TOT PROT 6.4 g/dl (6.4-8.2)
[2016-07-14] MEDS: PREGABALIN 75 MG CAPSULE PO SCH ×2 (09:20→21:42)
[2016-07-14] MEDS: ACETAMINOPHEN 325 MG TABLET (FP) PO PRN ×2 (09:20→19:10)
[2016-07-14] MEDS: D5-1/2NS+20 MEQ KCL - 1,000 ML IV SCH ×2 (09:25→12:06)
--- NOTE | 2016-07-14 11:01 | PN ---
Progress Note, Physician Chief Complaint: has a sore throat, excoriations underneath her breasts B/L, same rash on neck and face feels nauseous - Current Medication List Current Medications: Active Medications Acetaminophen (Tylenol -) 650 mg PO Q6H PRN PRN Reason: FEVER OR PAIN Last Admin: 07/14/16 09:20 Dose: 650 mg Potassium Chloride/Dextrose/Sod Cl (D5-1/2ns+20 Meq Kcl -) 1,000 mls @ 100 mls/ hr IV [facility]IR [facility] Last Admin: 07/14/16 09:25 Dose: 100 mls/hr Ondansetron HCl (Zofran Injection) 4 mg IVPB Q8H PRN PRN Reason: NAUSEA AND/OR VOMITING Last Admin: 07/13/16 20:37 Dose: 4 mg Pregabalin (Lyrica -) 75 mg PO BID [facility] Last Admin: 07/14/16 09:20 Dose: 75 mg Tramadol HCl (Ultram -) 100 mg PO Q8H PRN PRN Reason: PAIN Zolpidem Tartrate (Ambien -) 10 mg PO HS PRN PRN Reason: INSOMNIA Last Admin: 07/13/16 21:28 Dose: 10 mg - Objective Vital Signs: Vital Signs Temperature 99.5 F 07/14/16 10:40 Pulse Rate 119 H 07/14/16 09:16 Respiratory Rate 20 07/14/16 09:16 Blood Pressure 125/75 07/14/16 09:16 O2 Sat by Pulse Oximetry (%) 97 07/11/16 20:55 Constitutional: Yes: No Distress HENT: No: Drooling, Pharyngeal Erythema, Thrush, Tonsillar Exudate Cardiovascular: Yes: Regular Rate and Rhythm Respiratory: Yes: CTA Bilaterally Gastrointestinal: Yes: Normal Bowel Sounds, Soft, Abdomen, Obese. No: Tenderness Edema: No Labs: CBC, BMP 07/14/16 06:10 07/14/16 06:10 Problem List - Problems (1) Drug reaction Code(s): T88.7XXA - UNSP ADVERSE EFFECT OF DRUG OR MEDICAMENT, INIT ENCNTR Qualifiers: Encounter type: subsequent encounter Qualified Code(s): T88.7XXD - Unspecified adverse effect of drug or medicament, subsequent encounter (2) Fever Code(s): R50.9 - FEVER, UNSPECIFIED Qualifiers: Fever type: drug-induced Qualified Code(s): R50.2 - Drug induced fever (3) Pancytopenia Code(s): D61.818 - OTHER PANCYTOPENIA (4) Rash Code(s): R21 - RASH AND OTHER NONSPECIFIC SKIN ERUPTION (5) Rheumatoid arthritis of multiple sites without rheumatoid factor Code(s): M06.09 - RHEUMATOID ARTHRITIS W/O RHEUMATOID FACTOR, MULTIPLE SITES (6) Transaminitis Code(s): R74.0 - NONSPEC ELEV OF LEVELS OF TRANSAMNS & LACTIC ACID DEHYDRGNSE Assessment/Plan PLAN Sulphasalazine dc 5/8 antibiotics dc 5/8 viral serology negative blood cultures negative urine culture negative continue iv fluids-- may decrease iv fluids spoke with ID today, Hep B c Ab positive -- will need Gi eval continue with current meds -- monitor CBC-- leucopenia better --monitor LFT , elevated today Silvadene for breast excoriations magic mouth wash for sore throat--exam benign
[2016-07-14] MEDS ORDERED: CALAMINE 8% TOPICAL LOTION 177 ML BOTTLE TP PRN (11:22)
[2016-07-14] MEDS ORDERED: MAG HYDROX/ALH/SMC/DPHA/LIDO 240 ML MOUTHWASH MM PRN ×3 (11:23→13:55)
[2016-07-14 11:34] LABS: PLATELET ESTIMATE DECREASED (NORMAL)
--- NOTE | 2016-07-14 11:49 | PN ---
Progress Note (short form) - Note Progress Note: still with fevers and rash looks well sulfasalazine just d/niall 07/12 antibiotics d/niall 07/12 reports rash under breasts Vital Signs Period Temp Pulse Resp BP Sys/Perez Pulse Ox Last 24 Hr 98.7 F-101.2 F 90-119 20-20 118-134/67-75 no oral lesions cor-rrr lungs clear abd soft,nt ext no edema skin rash on neck unchanged, erythema on face unchanged- bridge of nose and cheeks, linear excoriations under her breasts CBC, BMP 07/14/16 06:10 07/14/16 06:10 13% eos yesterday Laboratory Tests 07/11/16 07/12/16 07/12/16 10:00 06:38 06:38 Eosinophils % Total Bilirubin AST ALT Alkaline Phosphatase Lyme Disease IgG/IgM < 0.91 CMV IgG Ab 3.60 H CMV IgM Ab < 30.0 Hep Bs Antigen Hep Bs Antibody Hep B Core Total Ab Hep B Core IgM Ab Hepatitis C Ab (EIA) Monoscreen HIV 1&2 Antibody Screen Negative HIV P24 Antigen Negative 07/12/16 07/12/16 07/12/16 06:38 06:38 06:38 Eosinophils % Total Bilirubin AST ALT Alkaline Phosphatase Lyme Disease IgG/IgM CMV IgG Ab CMV IgM Ab Hep Bs Antigen Negative Hep Bs Antibody Reactive Hep B Core Total Ab Positive H Hep B Core IgM Ab Positive H Hepatitis C Ab (EIA) >11.0 H Monoscreen Negative HIV 1&2 Antibody Screen HIV P24 Antigen 07/13/16 07/14/16 08:00 06:10 Eosinophils % 13.0 H Total Bilirubin 1.6 H AST 171 H D ALT 173 H D Alkaline Phosphatase 213 H Lyme Disease IgG/IgM CMV IgG Ab CMV IgM Ab Hep Bs Antigen Hep Bs Antibody Hep B Core Total Ab Hep B Core IgM Ab Hepatitis C Ab (EIA) Monoscreen HIV 1&2 Antibody Screen HIV P24 Antigen a/p suspect drug reaction to sulfasalazine now d/niall reports prior history of Hep C treated by Dr Dodson many years ago successfully no prior history Hep B, now with positive hep b core igm and hep b surface AB- will get hep b viral load and ask GI to comment will observe antibiotics d/niall 07/12/16 d/w Dr Leroy
[2016-07-14] MEDS: traMADol HCL 50 MG TABLET PO PRN ×2 (12:01→21:41)
[2016-07-14] MEDS ORDERED: SILVER SULFADIAZINE 1% TOP CREAM 50 GM JAR TP SCH (12:15)
[2016-07-14] MEDS: ZINC OXIDE 20% TOPICAL OINTMENT 30 GM TUBE TP SCH ×2 (14:31→22:03)
[2016-07-14] MEDS ORDERED: PT OWN MED DRAWER 7, Y5N ONE (18:32)
[2016-07-14] MEDS: ZOLPIDEM TARTRATE 5 MG TABLET PO PRN (21:41)
[2016-07-15 07:55] LABS: MCH 32.7 pg (25.7-33.7); MEAN CELL VOLUME 99.1 fl (80-96); MEAN PLT VOLUME 8.5 fl (7.5-11.1); PLATELET COUNT 131 K/MM3 (134-434); RDW 14.3 % (11.6-15.6); WHITE BLOOD COUNT 7.9 K/mm3 (4.0-10.0)
[2016-07-15 08:34] LABS: ALBUMIN 2.7 g/dl (3.4-5.0); ANION GAP 11 (8-16); BILIRUBIN,TOTAL 1.3 mg/dL (0.2-1.0); CALCIUM 8.5 mg/dL (8.5-10.1); CO2 23 mmol/L (21-32); CREATININE 0.9 mg/dL (0.55-1.02); GLUCOSE,RANDOM 81 mg/dL (74-106); SGOT/AST 168 U/L (15-37); SGPT/ALT 200 U/L (12-78); TOT PROT 6.2 g/dl (6.4-8.2)
[2016-07-15 08:35] LABS: ALK PHOS 256 U/L (45-117)
[2016-07-15] MEDS ORDERED: IBUPROFEN 600 MG TABLET (FP) PO PRN (09:57)
[2016-07-15 09:58] LABS: PLATELET ESTIMATE DECREASED (NORMAL)
[2016-07-15] MEDS: traMADol HCL 50 MG TABLET PO PRN ×2 (10:53→20:21)
[2016-07-15] MEDS: PREGABALIN 75 MG CAPSULE PO SCH ×2 (10:53→21:51)
[2016-07-15] MEDS: ZINC OXIDE 20% TOPICAL OINTMENT 30 GM TUBE TP SCH (10:54)
--- NOTE | 2016-07-15 11:17 | PN ---
Progress Note, Physician Chief Complaint: has more rash over body , back, arms Febrile yesterday and this AM-- last night she had chills when she went to the bathroom -- O2 sat 80%-- after 2 liters - it came upto 95%, temp 102F and tachycardic Today off Oxygen as her O2 sat better No SOB CXR-- no infiltrate , mild interstitial disease - Current Medication List Current Medications: Active Medications Acetaminophen (Tylenol -) 650 mg PO Q6H PRN PRN Reason: FEVER OR PAIN Last Admin: 07/14/16 19:10 Dose: 650 mg Calamine (Calamine 8% Topical Lotion -) 1 applic TP BID PRN PRN Reason: FOR ITCHING Last Admin: 07/14/16 14:32 Dose: 1 applic Potassium Chloride/Dextrose/Sod Cl (D5-1/2ns+20 Meq Kcl -) 1,000 mls @ 70 mls/ hr IV ASDIR [facility] Last Admin: 07/14/16 12:06 Dose: 70 mls/hr Ibuprofen (Motrin -) 600 mg PO Q6H PRN PRN Reason: FEVER Lidocaine/Aluminum/Magnesium/Simeth (Magic Mouthwash *Sjr Formula* -) 5 ml MM TIDAC PRN PRN Reason: MOUTH PAIN Last Admin: 07/14/16 16:53 Dose: 5 ml Multi-Ingredient Ointment (Zinc Oxide) 1 applic TP BID [facility] Last Admin: 07/15/16 10:54 Dose: 1 applic Ondansetron HCl (Zofran Injection) 4 mg IVPB Q8H PRN PRN Reason: NAUSEA AND/OR VOMITING Last Admin: 07/13/16 20:37 Dose: 4 mg Pregabalin (Lyrica -) 75 mg PO BID [facility] Last Admin: 07/15/16 10:53 Dose: 75 mg Tramadol HCl (Ultram -) 100 mg PO Q8H PRN PRN Reason: PAIN Last Admin: 07/15/16 10:53 Dose: 100 mg Zolpidem Tartrate (Ambien -) 10 mg PO HS PRN PRN Reason: INSOMNIA Last Admin: 07/14/16 21:41 Dose: 10 mg - Objective Vital Signs: Vital Signs Temperature 100.1 F H 07/15/16 05:55 Pulse Rate 114 H 05/11/17 11:16 Respiratory Rate 20 07/15/16 05:55 Blood Pressure 143/62 07/15/16 05:55 O2 Sat by Pulse Oximetry (%) 96 07/15/16 11:16 Constitutional: Yes: No Distress Cardiovascular: Yes: Regular Rate and Rhythm Respiratory: Yes: CTA Bilaterally Gastrointestinal: Yes: Normal Bowel Sounds, Soft, Abdomen, Obese. No: Distention, Tenderness Breast(s): Yes: Other (underneath breasts-- Rt-- linear skin tear, surrounding redness. Left-- more erythema and raised lesions) Edema: No Integumentary: Yes: Rash (raised erythematous lesions diffuse over body and back ) Labs: CBC, BMP 07/15/16 06:30 07/15/16 06:30 Problem List - Problems (1) Drug reaction Code(s): T88.7XXA - UNSP ADVERSE EFFECT OF DRUG OR MEDICAMENT, INIT ENCNTR Qualifiers: Encounter type: subsequent encounter Qualified Code(s): T88.7XXD - Unspecified adverse effect of drug or medicament, subsequent encounter (2) Fever Code(s): R50.9 - FEVER, UNSPECIFIED Qualifiers: Fever type: drug-induced Qualified Code(s): R50.2 - Drug induced fever (3) Pancytopenia Code(s): D61.818 - OTHER PANCYTOPENIA (4) Rash Code(s): R21 - RASH AND OTHER NONSPECIFIC SKIN ERUPTION (5) Rheumatoid arthritis of multiple sites without rheumatoid factor Code(s): M06.09 - RHEUMATOID ARTHRITIS W/O RHEUMATOID FACTOR, MULTIPLE SITES (6) Transaminitis Code(s): R74.0 - NONSPEC ELEV OF LEVELS OF TRANSAMNS & LACTIC ACID DEHYDRGNSE Assessment/Plan PLAN Sulphasalazine dc 5/8 antibiotics dc 5/8 viral serology negative blood cultures negative, repeat done yesterday -- pending urine culture negative continue iv fluids-- may decrease iv fluids GI eval pending for positive Hep B c AB continue with current meds
[2016-07-15] MEDS ORDERED: ACETAMINOPHEN 500 MG TABLET (FP) PO PRN (12:00)
[2016-07-15] MEDS: D5-1/2NS+20 MEQ KCL - 1,000 ML IV SCH ×2 (12:08→20:22)
[2016-07-15] MEDS: NYSTATIN POWDER 100,000 UNITS/GM - 15 GM TOPICAL POWDER TP SCH (13:18)
[2016-07-15] MEDS: ONDANSETRON 4 MG/2 ML VIAL IVPB PRN (13:34)
--- NOTE | 2016-07-15 16:24 | PN ---
Progress Note (short form) - Note Progress Note: still with fevers and rash is worsening looks well sulfasalazine just d/niall 07/12 antibiotics d/niall 07/12 reports rash under breasts now on back Vital Signs Period Temp Pulse Resp BP Sys/Perez Pulse Ox Last 24 Hr 98.8 F-102 F 99-114 20-20 108-160/62-79 96-96 no oral lesions cor-rrr lungs clear abd soft,nt ext no edema skin rash on neck unchanged, erythema on face unchanged- bridge of nose and cheeks, linear excoriations under her breasts- maculopapular rash on back CBC, BMP 07/15/16 06:30 07/15/16 06:30 Laboratory Tests 07/11/16 07/12/16 07/12/16 10:00 06:38 06:38 Eosinophils % Total Bilirubin AST ALT Alkaline Phosphatase Lyme Disease IgG/IgM < 0.91 CMV IgG Ab 3.60 H CMV IgM Ab < 30.0 Hep Bs Antigen Hep Bs Antibody Hep B Core Total Ab Hep B Core IgM Ab Hepatitis C Ab (EIA) Monoscreen HIV 1&2 Antibody Screen Negative HIV P24 Antigen Negative 07/12/16 07/12/16 07/12/16 06:38 06:38 06:38 Eosinophils % Total Bilirubin AST ALT Alkaline Phosphatase Lyme Disease IgG/IgM CMV IgG Ab CMV IgM Ab Hep Bs Antigen Negative Hep Bs Antibody Reactive Hep B Core Total Ab Positive H Hep B Core IgM Ab Positive H Hepatitis C Ab (EIA) >11.0 H Monoscreen Negative HIV 1&2 Antibody Screen HIV P24 Antigen 07/13/16 07/14/16 07/15/16 08:00 06:10 06:30 Eosinophils % 13.0 H Total Bilirubin 1.6 H 1.3 H AST 171 H D 168 H ALT 173 H D 200 H Alkaline Phosphatase 213 H 256 H D Lyme Disease IgG/IgM CMV IgG Ab CMV IgM Ab Hep Bs Antigen Hep Bs Antibody Hep B Core Total Ab Hep B Core IgM Ab Hepatitis C Ab (EIA) Monoscreen HIV 1&2 Antibody Screen HIV P24 Antigen a/p ?DRESS suspect drug reaction to sulfasalazine now d/niall 07/12 with worsening rash will start solumedrol d/w dr crowe and dr crocker derm consult pending reports prior history of Hep C treated by Dr Dodson many years ago successfully no prior history Hep B, now with positive hep b core igm and hep b surface AB- will get hep b viral load and ask GI to comment d/w Dr dodson repeat blood cultures for fever sent
[2016-07-15] MEDS: methylPREDNISolone NA SUCC 125 MG/2 ML VIAL IVPB SCH (17:19)
[2016-07-15] MEDS ORDERED: methylPREDNISolone NA SUCC 40 MG/1 ML VIAL IVPB SCH (18:00)
--- NOTE | 2016-07-15 21:07 | CON.GI ---
Consult Consult Specialty:: GASTROENTEROLOGY - History of Present Illness Chief Complaint: ELEVATED LIVER TESTS, PANCYTOPENIA, POSITIVE HEP B CORE AB History of Present Illness: 66 YEAR OLD AFROAMERICAN FEMALE WHO I HAVE KNOWN FOR YEARS. i HAVE TREATED HER FOR HEP C AND SHE HAS AN SVR . HER LAST HEP C RNA LEVEL WAS UNDETECTABLE IN 2014. I SAW HER LAST IN 2016 JUST BEFORE SHE STARTED HER CHEMO FOR OVARIAN CANCER . THE PALN WAS FOR HER TO RETURN TO THE OFFICE AFTER CHEMO WAS DONE TO PERFORM A COLONOSCOPY. SHE WAS RECENTLY DIAGNOSED WITH RA AND HAS BEEN TAKING SULFASALAZINE FOR 3 MONTHS WITH IMPROVEMENT IN HER ACTIVE JOINTS. SHE HAS DEVELOPED FATIGUE, A RASH AND PANCYTOPENIA WITH FEVER AND ELEVATED LFTs. SHE WAS ADMITTED. THE MEDICATION HAS BEEN DISCONTINUED ON 07/12. WORK UP FOR THE LIVER FUNCTION TESTS REVEAL NEGATIVE IgM ANTIBODIES FOR CMV, A POSTIVE EBVN AB, A NEGATIVE HEP a IgM, A POSITIVE HEPC AB, AND A NEGATIVE HEP B sAG WITH POSITIVE HEPBSsBA BUT A POSTIVE HEP Bc IGM. HEPC RNA AND HEP B DNA ARE PENDING. SHE HAS NO RISK FACOTRS FOR HEP B EXCEPT FOR RECENT CHEM AND BLOOD TRANSFUSIONS. I WILL NEED TO REVIEW HER PRIOR HEP B WORKUP. - History Source History Provided By: Patient Limitations to Obtaining History: No Limitations - Past Medical History FOOD OR BAGGAGE HANDLING RAMPMAN: No: Alzheimer's, CVA, Dementia, Migraine, Multiple Sclerosis, Peripheral Neuropathy, Parkinson's, Seizure, Syncope, TIA, Vertigo, Other Cardio/Vascular: Yes: HTN Pulmonary: No: Asthma, Bronchitis, Cancer, COPD, O2 Dependent, Pneumonia, Previously Intubated, Pulmonary Embolus, Pulmonary Fibrosis, Sleep Apnea, Other Gastrointestinal: Yes: GERD Hepatobiliary: Yes: Hepatitis C Renal/: No: Renal Failure, Renal Inusuff, BPH, Cancer, Hematuria, Hemodialysis , Neurogenic Bladder, Renal Calculi, UTI, Other Heme/Onc: Yes: Anemia, Other (OVARIAN CNACER) Musculoskeletal: Yes: Other (Chronic low back pain. Spinal stenosis) Rheumatology: Yes: Rheumatoid Arthritis - Past Surgical History Past Surgical History: Yes: Colonoscopy, Hysterectomy, Upper Endoscopy - Alcohol/Substance Use Hx Alcohol Use: Yes (SOCIAL) - Smoking History Smoking history: Former smoker Have you smoked in the past 12 months: No If you are a former smoker, when did you quit?: 22 YRS AGO Home Medications - Allergies Allergies/Adverse Reactions: Allergies Allergy/AdvReac Type Severity Reaction Status Date / Time latex AdvReac Mild Itching Verified 07/10/16 13:42 - Home Medications Home Medications: Ambulatory Orders Atenolol [Tenormin -] 50 mg PO DAILY 05/07/11 Cyanocobalamin (Vitamin B-12) [Vitamin B-12] 0 mcg PO ASDIR 07/10/16 Diphenhydramine [Benadryl -] 50 mg PO TID 07/10/16 Ferrous Sulfate 0 mg PO ASDIR 07/10/16 Folic Acid 0.8 mg PO ASDIR 07/10/16 Furosemide [Lasix -] 40 mg PO DAILY 07/10/16 Garlic [Garlic Oil] 1,000 mg PO ASDIR 07/10/16 Losartan Potassium [Cozaar -] 50 mg PO ASDIR 07/10/16 Meloxicam [Mobic] 15 mg PO DAILY 07/10/16 [place]-3S/Dha/Epa/Fish Oil [Fish Oil 1,200 mg Softgel] 1 each PO ASDIR 07/10/16 Ondansetron [Zofran -] 4 mg PO TID 07/10/16 Potassium Chloride 20 meq PO ASDIR 07/10/16 Pregabalin [Lyrica -] 75 mg PO BID 07/10/16 Rosuvastatin Calcium 5 mg PO ASDIR 07/10/16 Sulfasalazine [Sulfasalazine Dr] 500 mg PO ASDIR 07/10/16 Tramadol HCl [Ultram -] 150 mg PO BID 07/10/16 Zolpidem Tartrate [Ambien] 10 mg PO HS 07/10/16 Family Disease History - Family Disease History Family History: Unremarkable Review of Systems - Review of Systems Constitutional: reports: Chills, Fever, Loss of Appetite, Malaise, Weakness Eyes: reports: No Symptoms HENT: reports: No Symptoms Neck: reports: No Symptoms Cardiovascular: reports: No Symptoms Respiratory: reports: No Symptoms Gastrointestinal: reports: Nausea Genitourinary: reports: No Symptoms Breasts: reports: Skin Changes Musculoskeletal: reports: Back Pain, Joint Pain Integumentary: reports: Change in Color, Erythema, Pruritis, Rash Neurological: reports: No Symptoms Endocrine: reports: Excessive Sweating Psychiatric: reports: No Symptoms Physical Exam-GI Vital Signs: Vital Signs Temperature 100.6 F H 07/15/16 13:55 Pulse Rate 110 H 07/15/16 13:55 Respiratory Rate 20 07/15/16 08:00 Blood Pressure 151/76 07/15/16 13:55 O2 Sat by Pulse Oximetry (%) 96 07/15/16 11:16 Constitutional: Yes: Well Nourished, Calm, Obese Eyes: Yes: Conjunctiva Clear HENT: Yes: Normocephalic, Other Neck: Yes: Supple Cardiovascular: Yes: Regular Rate and Rhythm Respiratory: Yes: Regular ...Auscultate: Yes: Normoactive Bowel Sounds ...Palpate: Yes: Soft Breast(s): Yes: Skin Changes, Other (RASH UNDER EACH BREAST) Extremities: Yes: WNL Integumentary: Yes: Other (MACULOPAPULAR RASH BACK, CHEST FACE,NECK) Neurological: Yes: WNL Psychiatric: Yes: Alert, Oriented Labs: CBC, BMP 07/15/16 06:30 07/15/16 06:30 Laboratory Tests 07/11/16 07/11/16 07/12/16 06:00 07:45 06:38 WBC 3.8 L RBC 2.90 L Hgb 9.6 L D Hct 28.8 L MCV 99.3 H MCHC 33.4 RDW 13.6 Plt Count 82 L MPV 8.5 Neutrophils % Lymphocytes % Monocytes % Eosinophils % ESR Total Bilirubin 1.6 H D 2.1 H D AST 155 H 136 H ALT 132 H 134 H Alkaline Phosphatase 144 H 182 H D C-Reactive Protein 8.7 H MAXX Screen MAXX Centromere Pattern CMV IgG Ab CMV IgM Ab EBV Nuclear Antigen Hep A IgM Ab Confirm Hepatitis A Ab Total Hep Bs Antigen Hep Bs Antibody Hep B Core Total Ab Hep B Core IgM Ab Hepatitis C Ab (EIA) 07/12/16 07/12/16 07/12/16 06:38 06:38 06:38 WBC RBC Hgb Hct MCV MCHC RDW Plt Count MPV Neutrophils % Lymphocytes % Monocytes % Eosinophils % ESR 84 H Total Bilirubin AST ALT Alkaline Phosphatase C-Reactive Protein MAXX Screen MAXX Centromere Pattern CMV IgG Ab 3.60 H CMV IgM Ab < 30.0 EBV Nuclear Antigen >600.0 H Hep A IgM Ab Confirm Hepatitis A Ab Total Hep Bs Antigen Hep Bs Antibody Hep B Core Total Ab Hep B Core IgM Ab Hepatitis C Ab (EIA) 07/12/16 07/12/16 07/13/16 06:38 06:38 08:00 WBC RBC Hgb Hct MCV MCHC RDW Plt Count MPV Neutrophils % Lymphocytes % Monocytes % Eosinophils % 13.0 H ESR Total Bilirubin AST ALT Alkaline Phosphatase C-Reactive Protein MAXX Screen MAXX Centromere Pattern CMV IgG Ab CMV IgM Ab EBV Nuclear Antigen Hep A IgM Ab Confirm Negative Hepatitis A Ab Total Positive H Hep Bs Antigen Negative Hep Bs Antibody Reactive Hep B Core Total Ab Positive H Hep B Core IgM Ab Positive H Hepatitis C Ab (EIA) >11.0 H 07/13/16 07/13/16 07/14/16 08:00 08:00 06:10 WBC RBC Hgb Hct MCV MCHC RDW Plt Count MPV Neutrophils % Lymphocytes % Monocytes % Eosinophils % 9.0 H ESR Total Bilirubin 1.7 H AST 126 H ALT 129 H Alkaline Phosphatase 178 H C-Reactive Protein MAXX Screen Positive H MAXX Centromere Pattern 1:320 H CMV IgG Ab CMV IgM Ab EBV Nuclear Antigen Hep A IgM Ab Confirm Hepatitis A Ab Total Hep Bs Antigen Hep Bs Antibody Hep B Core Total Ab Hep B Core IgM Ab Hepatitis C Ab (EIA) 07/14/16 07/15/16 07/15/16 06:10 06:30 06:30 WBC 7.9 RBC 2.74 L Hgb 9.0 L Hct 27.2 L MCV 99.1 H MCHC 33.0 RDW 14.3 Plt Count 131 L MPV 8.5 Neutrophils % 32.0 L Lymphocytes % 58.0 H D Monocytes % 10.0 D Eosinophils % ESR Total Bilirubin 1.6 H 1.3 H AST 171 H D 168 H ALT 173 H D 200 H Alkaline Phosphatase 213 H 256 H D C-Reactive Protein MAXX Screen MAXX Centromere Pattern CMV IgG Ab CMV IgM Ab EBV Nuclear Antigen Hep A IgM Ab Confirm Hepatitis A Ab Total Hep Bs Antigen Hep Bs Antibody Hep B Core Total Ab Hep B Core IgM Ab Hepatitis C Ab (EIA) Imaging - Results Cat Scan: Image Reviewed Problem List - Problems (1) Drug reaction Assessment/Plan: I BELIEVE THAT THIS IS A DRUG REACTION AND DRUG INDUCED LIVER DIEASE. THE OFFENDING AGENT HAS BEEN DISCONTINUED. OF INTEREST IS THE HEP Bc AB IgM POSITIVITY. I HAVE SPOKE WITH DR JETER AND HEP B DNA TITERS WERE SENT. HER LAST HEP C RNA QUANT WAS NEGATIVE. I WILL ORDER ANOTHER. SHE SHOULD GET BETTER SOON AND HER LAB HAVE ALREADY STARTED TO IMPROVE. Code(s): T88.7XXA - UNSP ADVERSE EFFECT OF DRUG OR MEDICAMENT, INIT ENCNTR Qualifiers: Encounter type: subsequent encounter Qualified Code(s): T88.7XXD - Unspecified adverse effect of drug or medicament, subsequent encounter (2) Fever Code(s): R50.9 - FEVER, UNSPECIFIED Qualifiers: Fever type: drug-induced Qualified Code(s): R50.2 - Drug induced fever (3) Pancytopenia Code(s): D61.818 - OTHER PANCYTOPENIA (4) Rash Code(s): R21 - RASH AND OTHER NONSPECIFIC SKIN ERUPTION (5) Rheumatoid arthritis of multiple sites without rheumatoid factor Code(s): M06.09 - RHEUMATOID ARTHRITIS W/O RHEUMATOID FACTOR, MULTIPLE SITES (6) Hepatitis B antibody positive Code(s): R76.8 - OTHER SPECIFIED ABNORMAL IMMUNOLOGICAL FINDINGS IN SERUM
[2016-07-15] MEDS: ZOLPIDEM TARTRATE 5 MG TABLET PO PRN (21:51)
[2016-07-16] MEDS: methylPREDNISolone NA SUCC 125 MG/2 ML VIAL IVPB SCH ×2 (01:49→10:42)
--- NOTE | 2016-07-16 08:47 | PN ---
Progress Note (short form) - Note Progress Note: SUBJECTIVE: Patient seen and examined. Chart reviewed. On steroids now. Feels better today. Rash got worsened. Overall feels better. Denies chest pain. Denies shortness of breath today. No abdominal pain. Complains of photophobia. No distress. OBJECTIVE: Vital Signs 07/16/16 07/16/16 02:00 06:00 Temperature 98.0 F 97.7 F Pulse Rate 100 H Respiratory 18 Rate Blood Pressure 113/55 Intake & Output 07/15/16 07/16/16 07/16/16 23:59 07:59 15:59 Intake Total 1040 840 Balance 1040 840 Intake: IV 740 840 D5-1/2Ns+20 Meq KCl - 1, 740 840 000 ml @ 70 mls/hr IV ASDIR [place] Rx#:[id number] IVPB 100 Oral 200 Other: Voiding Method Toilet # Unmeasured Voids Void 3 3 Bowel Movement No Active Medications Acetaminophen (Tylenol -) 500 mg PO Q8H PRN PRN Reason: FEVER OR PAIN Calamine (Calamine 8% Topical Lotion -) 1 applic TP BID PRN PRN Reason: FOR ITCHING Last Admin: 07/14/16 14:32 Dose: 1 applic Potassium Chloride/Dextrose/Sod Cl (D5-1/2ns+20 Meq Kcl -) 1,000 mls @ 70 mls/ hr IV ASDIR [place] Last Admin: 07/15/16 20:22 Dose: 70 mls/hr Ibuprofen (Motrin -) 600 mg PO Q6H PRN PRN Reason: FEVER Last Admin: 07/15/16 17:56 Dose: 600 mg Lidocaine/Aluminum/Magnesium/Simeth (Magic Mouthwash *Sjr Formula* -) 5 ml MM TIDAC PRN PRN Reason: MOUTH PAIN Last Admin: 07/14/16 16:53 Dose: 5 ml Methylprednisolone Sodium Succinate (Solu-Medrol -) 60 mg IVPB Q8H-IV [place] Last Admin: 07/16/16 01:49 Dose: 60 mg Nystatin (Nystop Powder -) 1 applic TP DAILY [place] Last Admin: 07/15/16 13:18 Dose: 1 applic Ondansetron HCl (Zofran Injection) 4 mg IVPB Q8H PRN PRN Reason: NAUSEA AND/OR VOMITING Last Admin: 07/15/16 13:34 Dose: 4 mg Pregabalin (Lyrica -) 75 mg PO BID [place] Last Admin: 07/15/16 21:51 Dose: 75 mg Tramadol HCl (Ultram -) 100 mg PO Q8H PRN PRN Reason: PAIN Last Admin: 07/15/16 20:21 Dose: 100 mg Zolpidem Tartrate (Ambien -) 10 mg PO HS PRN PRN Reason: INSOMNIA Last Admin: 07/15/16 21:51 Dose: 10 mg CBC, BMP 07/16/16 07:30 07/16/16 07:30 Laboratory Results - last 24 hr 07/15/16 07/16/16 07/16/16 06:30 07:30 07:30 WBC 10.7 H D RBC 2.82 L Hgb 9.2 L Hct 27.9 L MCV 99.2 H MCHC 32.9 RDW 14.4 Plt Count 173 D MPV 8.6 Neutrophils % 32.0 L 36.0 L Lymphocytes % 58.0 H D 43.0 H D Monocytes % 10.0 D 5.0 Eosinophils % 1.0 D Band Neutrophils 6.0 Differential Comment Manual diff done Reactive Lymphocytes 9 D Platelet Estimate Decreased Adequate Platelet Comment No clumping noted Polychromasia Few Hypochromic-Microcytic 1+ Sodium 141 Potassium 4.7 Chloride 106 Carbon Dioxide 23 Anion Gap 12 BUN 8 Creatinine 0.9 Creat Clearance w eGFR > 60 Random Glucose 182 H D Calcium 9.0 Total Bilirubin 0.9 D GGT AST 88 H D ALT 183 H Alkaline Phosphatase 333 H D Total Protein 6.7 Albumin 2.6 L 07/16/16 07:30 WBC RBC Hgb Hct MCV MCHC RDW Plt Count MPV Neutrophils % Lymphocytes % Monocytes % Eosinophils % Band Neutrophils Differential Comment Reactive Lymphocytes Platelet Estimate Platelet Comment Polychromasia Hypochromic-Microcytic Sodium Potassium Chloride Carbon Dioxide Anion Gap BUN Creatinine Creat Clearance w eGFR Random Glucose Calcium Total Bilirubin GGT 426 H AST ALT Alkaline Phosphatase Total Protein Albumin Microbiology 07/11/16 02:00 Blood Culture - Final Blood - Peripheral Venous NO GROWTH AFTER 5 DAYS INCUBATION 07/11/16 02:30 Blood Culture - Final Blood - Peripheral Venous NO GROWTH AFTER 5 DAYS INCUBATION 07/14/16 22:00 Blood Culture - Preliminary Blood - Peripheral Venous NO GROWTH OBTAINED AFTER 24 HOURS, INCUBATION TO CONTINUE FOR 4 DAYS. 05/10/17 21:30 Blood Culture - Preliminary Blood - Peripheral Venous NO GROWTH OBTAINED AFTER 24 HOURS, INCUBATION TO CONTINUE FOR 4 DAYS. PHYSICAL EXAMINATION: Constitutional: Yes: No Distress Cardiovascular: Yes: Regular Rate and Rhythm Respiratory: Yes: CTA Bilaterally Gastrointestinal: Yes: Normal Bowel Sounds, Soft, Abdomen, Obese. No: Distention, Tenderness Edema: No Integumentary: Yes: Rash (raised erythematous lesions diffuse over body and back /face) Eye: Unremarkable. ASSESSMENT & PLAN: - Off antibiotics and Sulpha. - Will consult Opthomology-- concern of uvitis - Continue steroids. - Hepatitis B and DNA pending. - Will follow. Documentation prepared by Ivelisse Juárez, acting as a manager medical for Alisha Anand MD. <Ivelisse Juárez - Last Filed: 07/16/16 10:53> Problem List - Problems (1) Fever Code(s): R50.9 - FEVER, UNSPECIFIED Qualifiers: Fever type: drug-induced Qualified Code(s): R50.2 - Drug induced fever (2) Transaminitis Code(s): R74.0 - NONSPEC ELEV OF LEVELS OF TRANSAMNS & LACTIC ACID DEHYDRGNSE (3) Viral syndrome Code(s): B34.9 - VIRAL INFECTION, UNSPECIFIED (4) Weakness Code(s): R53.1 - WEAKNESS (5) Pancytopenia Code(s): D61.818 - OTHER PANCYTOPENIA (6) Rash Code(s): R21 - RASH AND OTHER NONSPECIFIC SKIN ERUPTION <Alisha Anand - Last Filed: 07/16/16 08:47>
[2016-07-16 08:52] LABS: MCH 32.7 pg (25.7-33.7); MCHC 32.9 g/dl (32.0-36.0); MEAN CELL VOLUME 99.2 fl (80-96); MEAN PLT VOLUME 8.6 fl (7.5-11.1); PLATELET COUNT 173 K/MM3 (134-434); RDW 14.4 % (11.6-15.6); WHITE BLOOD COUNT 10.7 K/mm3 (4.0-10.0)
[2016-07-16 09:28] LABS: ALBUMIN 2.6 g/dl (3.4-5.0); ALK PHOS 333 U/L (45-117); ANION GAP 12 (8-16); BILIRUBIN,TOTAL 0.9 mg/dL (0.2-1.0); CO2 23 mmol/L (21-32); CREATININE 0.9 mg/dL (0.55-1.02); GLUCOSE,RANDOM 182 mg/dL (74-106); SGOT/AST 88 U/L (15-37); SGPT/ALT 183 U/L (12-78); TOT PROT 6.7 g/dl (6.4-8.2)
[2016-07-16 09:34] LABS: PLATELET ESTIMATE ADEQUATE (NORMAL)
[2016-07-16 09:35] LABS: HYPOCHROMIA 1+; POLYCHROMASIA FEW
--- NOTE | 2016-07-16 10:15 | PN ---
Progress Note (short form) - Note Progress Note: steroids day #1 still itchy with rash no fevers overnight notes some photoophobia and itchy eyes no cough, no sob sulfasalazine d/niall 07/12 antibiotics d/niall 07/12 Vital Signs Period Temp Pulse Resp BP Sys/Perez Pulse Ox Last 24 Hr 97.7 F-100.9 F 100-114 18-20 113-151/55-76 96-97 cor-rrr lungs clear abd soft,nt ext no edema skin rash on neck unchanged, erythema on face unchanged- bridge of nose and cheeks, linear excoriations under her breasts- maculopapular rash on back unchanged, fined rash on anterior chest and arms - itchy CBC, BMP 07/16/16 07:30 07/16/16 07:30 Laboratory Tests 07/11/16 07/12/16 07/12/16 10:00 06:38 06:38 Eosinophils % Total Bilirubin GGT AST ALT Alkaline Phosphatase Lyme Disease IgG/IgM < 0.91 CMV IgG Ab 3.60 H CMV IgM Ab < 30.0 Hep Bs Antigen Hep Bs Antibody Hep B Core Total Ab Hep B Core IgM Ab Hepatitis C Ab (EIA) Monoscreen HIV 1&2 Antibody Screen Negative HIV P24 Antigen Negative 07/12/16 07/12/16 07/12/16 06:38 06:38 06:38 Eosinophils % Total Bilirubin GGT AST ALT Alkaline Phosphatase Lyme Disease IgG/IgM CMV IgG Ab CMV IgM Ab Hep Bs Antigen Negative Hep Bs Antibody Reactive Hep B Core Total Ab Positive H Hep B Core IgM Ab Positive H Hepatitis C Ab (EIA) >11.0 H Monoscreen Negative HIV 1&2 Antibody Screen HIV P24 Antigen 07/13/16 07/14/16 07/15/16 08:00 06:10 06:30 Eosinophils % 13.0 H Total Bilirubin 1.6 H 1.3 H GGT AST 171 H D 168 H ALT 173 H D 200 H Alkaline Phosphatase 213 H 256 H D Lyme Disease IgG/IgM CMV IgG Ab CMV IgM Ab Hep Bs Antigen Hep Bs Antibody Hep B Core Total Ab Hep B Core IgM Ab Hepatitis C Ab (EIA) Monoscreen HIV 1&2 Antibody Screen HIV P24 Antigen 07/16/16 07/16/16 07:30 07:30 Eosinophils % Total Bilirubin GGT 426 H AST 88 H D ALT 183 H Alkaline Phosphatase 333 H D Lyme Disease IgG/IgM CMV IgG Ab CMV IgM Ab Hep Bs Antigen Hep Bs Antibody Hep B Core Total Ab Hep B Core IgM Ab Hepatitis C Ab (EIA) Monoscreen HIV 1&2 Antibody Screen HIV P24 Antigen a/p ?DRESS- ?uveitis, ?interstitial pneumonitis lfts improving suspect drug reaction to sulfasalazine now d/niall 07/12 continue steroids consider opthomology consult- ?uveitis reports prior history of Hep C treated by Dr Dodson many years ago successfully no prior history Hep B, now with positive hep b core igm and hep b surface AB- hep b viral load and hep c viral load pending history ovarian cancer- finished treatment one year ago repeat blood cultures for fever sent d/w Dr Anand
[2016-07-16] MEDS: PREGABALIN 75 MG CAPSULE PO SCH ×2 (10:42→21:28)
[2016-07-16] MEDS: NYSTATIN POWDER 100,000 UNITS/GM - 15 GM TOPICAL POWDER TP SCH (10:47)
[2016-07-16] MEDS: traMADol HCL 50 MG TABLET PO PRN ×2 (10:53→21:28)
[2016-07-16] MEDS ORDERED: POLYETHYLENE GLYCOL 3350 119 GM BTL PO PRN (11:31)
[2016-07-16] MEDS: D5-1/2NS+20 MEQ KCL - 1,000 ML IV SCH (12:22)
--- NOTE | 2016-07-16 16:04 | CONSULT ---
Consult - text type - Consultation Consultation Note: Ophthalmology consult 66 year old woman with a history of rheumatoid arthritis, presented with generalized "itching", possibly due to sulfasalazine - now c/o photophobia and FBS OU - s/p CE/IOL OU 5-6 years ago [facility], near OD 20/30 OS 20/30 (with reading glasses) P 3/3, 3+/3+ EOM full OU PLE LLL flat OU S/C no injection OU K clear OU A/C formed OU Iris - postsurgical OU lens PCIOL OU Impression/plan: Likely dry eye symptoms - no evidence of iritis/uveitis Recommend lubrication while in hospital with tears 3-4 times a day and tears ointment (i.e. Puralube) at bedtime Follow up when discharged with shanker out
--- NOTE | 2016-07-16 20:06 | PN ---
GI Progress Note Subjective: GASTROENTEROLOGY RASH ABOUT THE SAME DESPITE NO NOTE IN THE COMPUTER OR ORDERS PLACED VIA THE COMPUTER, THERE WAS A DERM CONSULT DONE TODAY AND SAMI EVEN HAD A SKIN BIOPSY AND LABS ETC WERE ORDERED IN THE PAPER CHART LIVER ENZYMES ARE IMPROVING - Objective Vital Signs: Vital Signs Temperature 98.2 F 07/16/16 18:00 Pulse Rate 99 H 07/16/16 18:00 Respiratory Rate 20 07/16/16 18:00 Blood Pressure 151/89 07/16/16 18:00 O2 Sat by Pulse Oximetry (%) 97 07/16/16 11:14 Constitutional: Calm Eyes: Yes: Conjunctiva Clear HENT: Yes: Normocephalic Neck: Yes: Supple Cardiovascular: Yes: Regular Rate and Rhythm Respiratory: Yes: Regular Gastrointestinal Inspection: Yes: WNL ...Auscultate: Yes: Normoactive Bowel Sounds ...Palpate: Yes: Soft Breast(s): Yes: Skin Changes, Other (UNDER BREASTS) Musculoskeletal: Yes: Joint Stiffness Extremities: Yes: Erythema Integumentary: Yes: Rash Labs: CBC, BMP 07/16/16 07:30 07/16/16 07:30 Laboratory Tests 07/14/16 07/15/16 07/15/16 06:10 06:30 06:30 WBC 7.9 RBC 2.74 L Hgb 9.0 L Hct 27.2 L MCV 99.1 H MCHC 33.0 RDW 14.3 Plt Count 131 L Total Bilirubin 1.6 H 1.3 H GGT AST 171 H D 168 H ALT 173 H D 200 H Alkaline Phosphatase 213 H 256 H D 07/16/16 07/16/16 07/16/16 07:30 07:30 07:30 WBC 10.7 H D RBC 2.82 L Hgb 9.2 L Hct 27.9 L MCV 99.2 H MCHC 32.9 RDW 14.4 Plt Count 173 D Total Bilirubin 0.9 D GGT 426 H AST 88 H D ALT 183 H Alkaline Phosphatase 333 H D Problem List - Problems (1) Drug reaction Assessment/Plan: LIVER FUNCTIONS ARE IMPROVING, CONTINUE TO AVOID LIVER TOXIC MEDS, NO SULFASALZINE Code(s): T88.7XXA - UNSP ADVERSE EFFECT OF DRUG OR MEDICAMENT, INIT ENCNTR Qualifiers: Encounter type: subsequent encounter Qualified Code(s): T88.7XXD - Unspecified adverse effect of drug or medicament, subsequent encounter (2) Autoimmune disease Assessment/Plan: PLEASE SEE DERM CONSULT IN PAPER CHART [employer] WORKUP ALREADY ORDERED BY DR WEINER Code(s): M35.9 - SYSTEMIC INVOLVEMENT OF CONNECTIVE TISSUE, UNSPECIFIED (3) Fever Code(s): R50.9 - FEVER, UNSPECIFIED Qualifiers: Fever type: drug-induced Qualified Code(s): R50.2 - Drug induced fever (4) Pancytopenia Assessment/Plan: IMPROVING Code(s): D61.818 - OTHER PANCYTOPENIA (5) Rash Assessment/Plan: AWAIT RESULT OF SKIN BIOPSY R/O VASCULITIS, RASH UNDER BREAST IS FUNGAL, DERMATOMYOSITIS OR SCLEODERMA Code(s): R21 - RASH AND OTHER NONSPECIFIC SKIN ERUPTION (6) Rheumatoid arthritis of multiple sites without rheumatoid factor Code(s): M06.09 - RHEUMATOID ARTHRITIS W/O RHEUMATOID FACTOR, MULTIPLE SITES (7) Hepatitis B antibody positive Assessment/Plan: AWAIT HEP B DNA AND HEP C RNA Code(s): R76.8 - OTHER SPECIFIED ABNORMAL IMMUNOLOGICAL FINDINGS IN SERUM
[2016-07-16] MEDS: ZOLPIDEM TARTRATE 5 MG TABLET PO PRN (21:28)
[2016-07-16] MEDS: BACITRACIN 30 GM TUBE TOPICAL OINTMENT TP SCH (21:29)
[2016-07-16] MEDS: TRIAMCINOLONE ACET 0.1% CREAM 80 GM TUBE TP SCH (21:46)
[2016-07-17] MEDS: D5-1/2NS+20 MEQ KCL - 1,000 ML IV SCH ×2 (02:16→17:13)
[2016-07-17 07:57] LABS: LDH 310 U/L (84-246)
[2016-07-17] MEDS ORDERED: predniSONE 20 MG TABLET (UD) PO SCH (10:00)
[2016-07-17] MEDS: traMADol HCL 50 MG TABLET PO PRN ×2 (10:10→18:12)
[2016-07-17] MEDS: PREGABALIN 75 MG CAPSULE PO SCH ×2 (10:10→21:35)
[2016-07-17] MEDS: TRIAMCINOLONE ACET 0.1% CREAM 80 GM TUBE TP SCH ×2 (10:13→21:38)
[2016-07-17] MEDS: NYSTATIN POWDER 100,000 UNITS/GM - 15 GM TOPICAL POWDER TP SCH (10:13)
[2016-07-17] MEDS: BACITRACIN 30 GM TUBE TOPICAL OINTMENT TP SCH ×2 (10:13→21:39)
--- NOTE | 2016-07-17 10:31 | PN ---
Progress Note, Physician Chief Complaint: has more rash over body , back, arms seen by Dermatology- skin biopsy done on neck Pruritic no SOB feels tired no bm for 4 days - Current Medication List Current Medications: Active Medications Acetaminophen (Tylenol -) 500 mg PO Q8H PRN PRN Reason: FEVER OR PAIN Bacitracin (Bacitracin -) 1 applic TP BID [facility] Last Admin: 07/17/16 10:13 Dose: 1 applic Calamine (Calamine 8% Topical Lotion -) 1 applic TP BID PRN PRN Reason: FOR ITCHING Last Admin: 07/14/16 14:32 Dose: 1 applic Potassium Chloride/Dextrose/Sod Cl (D5-1/2ns+20 Meq Kcl -) 1,000 mls @ 70 mls/ hr IV ASDIR [facility] Last Admin: 07/17/16 02:16 Dose: 70 mls/hr Ibuprofen (Motrin -) 600 mg PO Q6H PRN PRN Reason: FEVER Last Admin: 07/15/16 17:56 Dose: 600 mg Lidocaine/Aluminum/Magnesium/Simeth (Magic Mouthwash *Sjr Formula* -) 5 ml MM TIDAC PRN PRN Reason: MOUTH PAIN Last Admin: 07/14/16 16:53 Dose: 5 ml Nystatin (Nystop Powder -) 1 applic TP DAILY [facility] Last Admin: 07/17/16 10:13 Dose: 1 applic Ondansetron HCl (Zofran Injection) 4 mg IVPB Q8H PRN PRN Reason: NAUSEA AND/OR VOMITING Last Admin: 07/15/16 13:34 Dose: 4 mg Polyethylene Glycol (Miralax (For Daily Use) -) 17 gm PO DAILY PRN PRN Reason: CONSTIPATION Prednisone (Deltasone -) 60 mg PO DAILY [facility] Last Admin: 07/17/16 10:11 Dose: 60 mg Pregabalin (Lyrica -) 75 mg PO BID [facility] Last Admin: 07/17/16 10:10 Dose: 75 mg Tramadol HCl (Ultram -) 100 mg PO Q8H PRN PRN Reason: PAIN Last Admin: 07/17/16 10:10 Dose: 100 mg Triamcinolone Acetonide (Triamcinolone Acetonide) 1 applic TP BID [facility] Last Admin: 07/17/16 10:13 Dose: 1 applic Zolpidem Tartrate (Ambien -) 10 mg PO HS PRN PRN Reason: INSOMNIA Last Admin: 07/16/16 21:28 Dose: 10 mg - Objective Vital Signs: Vital Signs Temperature 98.5 F 07/17/16 08:27 Pulse Rate 104 H 07/17/16 08:27 Respiratory Rate 18 07/17/16 08:27 Blood Pressure 141/83 07/17/16 08:27 O2 Sat by Pulse Oximetry (%) 97 07/16/16 20:34 Constitutional: Yes: No Distress, Calm Cardiovascular: Yes: Regular Rate and Rhythm Respiratory: Yes: CTA Bilaterally Gastrointestinal: Yes: Normal Bowel Sounds, Soft, Abdomen, Obese. No: Tenderness Edema: No Integumentary: Yes: Rash (increased erythematous lesions over face and papular rash over arms , chest, back and legs) Psychiatric: Yes: WNL Labs: CBC, BMP 07/16/16 07:30 07/16/16 07:30 Problem List - Problems (1) Drug reaction Code(s): T88.7XXA - UNSP ADVERSE EFFECT OF DRUG OR MEDICAMENT, INIT ENCNTR Qualifiers: Encounter type: subsequent encounter Qualified Code(s): T88.7XXD - Unspecified adverse effect of drug or medicament, subsequent encounter (2) Fever Code(s): R50.9 - FEVER, UNSPECIFIED Qualifiers: Fever type: drug-induced Qualified Code(s): R50.2 - Drug induced fever (3) Pancytopenia Code(s): D61.818 - OTHER PANCYTOPENIA (4) Rash Code(s): R21 - RASH AND OTHER NONSPECIFIC SKIN ERUPTION (5) Rheumatoid arthritis of multiple sites without rheumatoid factor Code(s): M06.09 - RHEUMATOID ARTHRITIS W/O RHEUMATOID FACTOR, MULTIPLE SITES (6) Transaminitis Code(s): R74.0 - NONSPEC ELEV OF LEVELS OF TRANSAMNS & LACTIC ACID DEHYDRGNSE Assessment/Plan PLAN Sulphasalazine dc 5/8 antibiotics dc 5/8 on Prednisone Check labs in AM Dermatology eval appreciated-- ordered labs and did biopsy-- R/O lupus erythematosis, MCTD, dermatomyositis vs scleroderma labs pending on Triamcinolone ointment Ophthal and GI eval appreciated OOB daily continue iv fluids encouraged to drink fluids -- may dc tomorrow Biopsy results will be available per Dr Cabrera on 07/22/16-- call [phone]
--- NOTE | 2016-07-17 11:11 | PN ---
Progress Note, Physician History of Present Illness: C/O pruritic rash on face, neck, back,abdomen Afebrile with elevated WBC on steroids Skin bx pending - Current Medication List Current Medications: Active Medications Acetaminophen (Tylenol -) 500 mg PO Q8H PRN PRN Reason: FEVER OR PAIN Bacitracin (Bacitracin -) 1 applic TP BID [facility] Last Admin: 07/17/16 10:13 Dose: 1 applic Calamine (Calamine 8% Topical Lotion -) 1 applic TP BID PRN PRN Reason: FOR ITCHING Last Admin: 07/14/16 14:32 Dose: 1 applic Potassium Chloride/Dextrose/Sod Cl (D5-1/2ns+20 Meq Kcl -) 1,000 mls @ 70 mls/ hr IV ASDIR [facility] Last Admin: 07/17/16 02:16 Dose: 70 mls/hr Ibuprofen (Motrin -) 600 mg PO Q6H PRN PRN Reason: FEVER Last Admin: 07/15/16 17:56 Dose: 600 mg Lidocaine/Aluminum/Magnesium/Simeth (Magic Mouthwash *Sjr Formula* -) 5 ml MM TIDAC PRN PRN Reason: MOUTH PAIN Last Admin: 07/14/16 16:53 Dose: 5 ml Nystatin (Nystop Powder -) 1 applic TP DAILY [facility] Last Admin: 07/17/16 10:13 Dose: 1 applic Ondansetron HCl (Zofran Injection) 4 mg IVPB Q8H PRN PRN Reason: NAUSEA AND/OR VOMITING Last Admin: 07/15/16 13:34 Dose: 4 mg Polyethylene Glycol (Miralax (For Daily Use) -) 17 gm PO DAILY PRN PRN Reason: CONSTIPATION Prednisone (Deltasone -) 60 mg PO DAILY [facility] Last Admin: 07/17/16 10:11 Dose: 60 mg Pregabalin (Lyrica -) 75 mg PO BID [facility] Last Admin: 07/17/16 10:10 Dose: 75 mg Tramadol HCl (Ultram -) 100 mg PO Q8H PRN PRN Reason: PAIN Last Admin: 07/17/16 10:10 Dose: 100 mg Triamcinolone Acetonide (Triamcinolone Acetonide) 1 applic TP BID [facility] Last Admin: 07/17/16 10:13 Dose: 1 applic Zolpidem Tartrate (Ambien -) 10 mg PO HS PRN PRN Reason: INSOMNIA Last Admin: 07/16/16 21:28 Dose: 10 mg - Objective Vital Signs: Vital Signs Temperature 98.5 F 07/17/16 08:27 Pulse Rate 104 H 07/17/16 08:27 Respiratory Rate 18 07/17/16 08:27 Blood Pressure 141/83 07/17/16 08:27 O2 Sat by Pulse Oximetry (%) 97 07/16/16 20:34 Constitutional: Yes: No Distress Eyes: Yes: Conjunctiva Clear Cardiovascular: Yes: Regular Rate and Rhythm, S1, S2 Respiratory: Yes: CTA Bilaterally Gastrointestinal: Yes: Normal Bowel Sounds, Soft, Abdomen, Obese. No: Tenderness Edema: No Integumentary: Yes: Other (urticarial rash on back + maculopapular rash on face / neck/ abdo) Labs: CBC, BMP 07/16/16 07:30 07/16/16 07:30 Assessment/Plan Drug reaction v. connective tissue disease Elevated LFTs Continue steroids Await skin bx
[2016-07-17] MEDS ORDERED: BENZOCAINE/MENTH/CETYLPYRD CL 1 EACH LOZENGE MM PRN (13:00)
[2016-07-17] MEDS: ARTIFICIAL TEARS (POLYVINYL ALCOHOL 1.4%) OPTH DROPS OU PRN (14:03)
[2016-07-17] MEDS ORDERED: PT OWN MED DRAWER 7, Y5N ONE (14:07)
[2016-07-17] MEDS: MINERAL OIL/PETROLATUM,WHITE 3.5 GM TUBE OU SCH (21:35)
[2016-07-18] MEDS: D5-1/2NS+20 MEQ KCL - 1,000 ML IV SCH (06:14)
[2016-07-18 08:36] LABS: MCH 32.1 pg (25.7-33.7); MCHC 32.4 g/dl (32.0-36.0); MEAN CELL VOLUME 99.2 fl (80-96); PLATELET COUNT 264 K/MM3 (134-434); RDW 14.4 % (11.6-15.6); WHITE BLOOD COUNT 25.4 K/mm3 (4.0-10.0)
[2016-07-18] MEDS: traMADol HCL 50 MG TABLET PO PRN ×2 (08:57→19:31)
--- NOTE | 2016-07-18 08:57 | PN ---
Progress Note, Physician Chief Complaint: has more raised rash over body , back, arms she has burning sensation on face face is puffy Pruritic no SOB feels tired had bm today - Current Medication List Current Medications: Active Medications Acetaminophen (Tylenol -) 500 mg PO Q8H PRN PRN Reason: FEVER OR PAIN Artificial Tears (Artificial Tears) 1 drop OU QID PRN PRN Reason: DRY EYES Last Admin: 07/17/16 14:03 Dose: 1 drop Artificial Tears (Artificial Tears Ointment -) 1 applic OU HS [facility] Last Admin: 07/17/16 21:35 Dose: 1 applic Bacitracin (Bacitracin -) 1 applic TP BID [facility] Last Admin: 07/17/16 21:39 Dose: 1 applic Benzocaine/Menthol (Cepacol Lozenge -) 1 each MM PRN PRN PRN Reason: SORE THROAT Last Admin: 07/17/16 14:04 Dose: 1 each Calamine (Calamine 8% Topical Lotion -) 1 applic TP BID PRN PRN Reason: FOR ITCHING Last Admin: 07/14/16 14:32 Dose: 1 applic Potassium Chloride/Dextrose/Sod Cl (D5-1/2ns+20 Meq Kcl -) 1,000 mls @ 70 mls/ hr IV ASDIR [facility] Last Admin: 07/18/16 06:14 Dose: 70 mls/hr Ibuprofen (Motrin -) 600 mg PO Q6H PRN PRN Reason: FEVER Last Admin: 07/15/16 17:56 Dose: 600 mg Lidocaine/Aluminum/Magnesium/Simeth (Magic Mouthwash *Sjr Formula* -) 5 ml MM TIDAC PRN PRN Reason: MOUTH PAIN Last Admin: 07/14/16 16:53 Dose: 5 ml Nystatin (Nystop Powder -) 1 applic TP DAILY [facility] Last Admin: 07/17/16 10:13 Dose: 1 applic Ondansetron HCl (Zofran Injection) 4 mg IVPB Q8H PRN PRN Reason: NAUSEA AND/OR VOMITING Last Admin: 07/15/16 13:34 Dose: 4 mg Polyethylene Glycol (Miralax (For Daily Use) -) 17 gm PO DAILY PRN PRN Reason: CONSTIPATION Last Admin: 07/17/16 20:36 Dose: 17 gm Prednisone (Deltasone -) 60 mg PO DAILY [facility] Last Admin: 07/17/16 10:11 Dose: 60 mg Pregabalin (Lyrica -) 75 mg PO BID [facility] Last Admin: 07/17/16 21:35 Dose: 75 mg Tramadol HCl (Ultram -) 100 mg PO Q8H PRN PRN Reason: PAIN Last Admin: 07/17/16 18:12 Dose: 100 mg Triamcinolone Acetonide (Triamcinolone Acetonide) 1 applic TP BID [facility] Last Admin: 07/17/16 21:38 Dose: 1 applic Zolpidem Tartrate (Ambien -) 10 mg PO HS PRN PRN Reason: INSOMNIA Last Admin: 07/16/16 21:28 Dose: 10 mg - Objective Vital Signs: Vital Signs Temperature 98.4 F 07/17/16 21:37 Pulse Rate 92 H 07/17/16 21:37 Respiratory Rate 20 07/17/16 21:37 Blood Pressure 164/93 07/17/16 21:37 O2 Sat by Pulse Oximetry (%) 96 07/17/16 20:30 Constitutional: Yes: No Distress Cardiovascular: Yes: Regular Rate and Rhythm Respiratory: Yes: CTA Bilaterally Gastrointestinal: Yes: Normal Bowel Sounds, Soft, Abdomen, Obese. No: Tenderness Edema: No Integumentary: Yes: Rash (raised erythematous lesions over body) Neurological: Yes: WNL Labs: CBC, BMP 07/18/16 07:25 Problem List - Problems (1) Drug reaction Code(s): T88.7XXA - UNSP ADVERSE EFFECT OF DRUG OR MEDICAMENT, INIT ENCNTR Qualifiers: Encounter type: subsequent encounter Qualified Code(s): T88.7XXD - Unspecified adverse effect of drug or medicament, subsequent encounter (2) Fever Code(s): R50.9 - FEVER, UNSPECIFIED Qualifiers: Fever type: drug-induced Qualified Code(s): R50.2 - Drug induced fever (3) Pancytopenia Code(s): D61.818 - OTHER PANCYTOPENIA (4) Rash Code(s): R21 - RASH AND OTHER NONSPECIFIC SKIN ERUPTION (5) Rheumatoid arthritis of multiple sites without rheumatoid factor Code(s): M06.09 - RHEUMATOID ARTHRITIS W/O RHEUMATOID FACTOR, MULTIPLE SITES (6) Transaminitis Code(s): R74.0 - NONSPEC ELEV OF LEVELS OF TRANSAMNS & LACTIC ACID DEHYDRGNSE Assessment/Plan PLAN Sulphasalazine dc 07/12 antibiotics dc 07/12 on Prednisone taper tomorrow add Protonix for GI prophylaxis Check labs in AM may need t contact DR Cabrera with regards to ointment for her face on Triamcinolone ointment BP high now-- will restart her home meds -- Atenolol and Losartan LFT getting better WBC high likely due to steroids, she is afebrile now since 07/15 OOB daily dc iv fluids Biopsy results will be available per Dr Cabrera on 07/22/16-- call
[2016-07-18 09:11] LABS: ALBUMIN 2.8 g/dl (3.4-5.0); ALK PHOS 255 U/L (45-117); ANION GAP 10 (8-16); BILIRUBIN,TOTAL 0.7 mg/dL (0.2-1.0); CALCIUM 8.6 mg/dL (8.5-10.1); CO2 27 mmol/L (21-32); CREATININE 0.9 mg/dL (0.55-1.02); GLUCOSE,RANDOM 89 mg/dL (74-106); SGOT/AST 72 U/L (15-37); SGPT/ALT 170 U/L (12-78); TOT PROT 6.6 g/dl (6.4-8.2)
[2016-07-18 09:22] LABS: PLATELET ESTIMATE ADEQUATE (NORMAL)
[2016-07-18 09:23] LABS: HYPOCHROMIA 1+; POLYCHROMASIA FEW; SMUDGE CELLS 1
[2016-07-18] MEDS ORDERED: amLODIPine BESYLATE 5 MG TABLET (FP) PO SCH (10:00)
[2016-07-18] MEDS ORDERED: LOSARTAN POTASSIUM 50 MG TABLET (FP) PO SCH (10:00)
[2016-07-18] MEDS: PANTOPRAZOLE 20 MG TABLET (FP) PO SCH (10:10)
[2016-07-18] MEDS: PREGABALIN 75 MG CAPSULE PO SCH ×2 (10:10→21:56)
[2016-07-18] MEDS: ATENOLOL 25 MG TABLET (FP) PO SCH (10:10)
[2016-07-18] MEDS: BACITRACIN 30 GM TUBE TOPICAL OINTMENT TP SCH ×2 (10:11→21:57)
[2016-07-18] MEDS: ONDANSETRON 4 MG/2 ML VIAL IVPB PRN (10:11)
[2016-07-18] MEDS: TRIAMCINOLONE ACET 0.1% CREAM 80 GM TUBE TP SCH ×2 (10:15→21:57)
[2016-07-18] MEDS: NYSTATIN POWDER 100,000 UNITS/GM - 15 GM TOPICAL POWDER TP SCH (10:16)
[2016-07-18] MEDS ORDERED: predniSONE 20 MG TABLET (UD) PO ONE (13:30)
[2016-07-18] MEDS ORDERED: PT OWN MED DRAWER 7, Y5N ONE (21:10)
[2016-07-18] MEDS: MINERAL OIL/PETROLATUM,WHITE 3.5 GM TUBE OU SCH (21:56)
[2016-07-18] MEDS: ARTIFICIAL TEARS (POLYVINYL ALCOHOL 1.4%) OPTH DROPS OU PRN (22:00)
[2016-07-18] MEDS: ZOLPIDEM TARTRATE 5 MG TABLET PO PRN (23:14)
[2016-07-19 08:08] LABS: MCHC 32.1 g/dl (32.0-36.0); MEAN CELL VOLUME 99.9 fl (80-96); MEAN PLT VOLUME 7.7 fl (7.5-11.1); PLATELET COUNT 318 K/MM3 (134-434); RDW 14.9 % (11.6-15.6); WHITE BLOOD COUNT 29.4 K/mm3 (4.0-10.0)
[2016-07-19 08:41] LABS: CALCIUM 8.8 mg/dL (8.5-10.1)
[2016-07-19 08:46] LABS: ALBUMIN 2.9 g/dl (3.4-5.0); ALK PHOS 244 U/L (45-117); ANION GAP 11 (8-16); BILIRUBIN,TOTAL 0.9 mg/dL (0.2-1.0); CO2 27 mmol/L (21-32); CREATININE 0.9 mg/dL (0.55-1.02); GLUCOSE,RANDOM 89 mg/dL (74-106); SGOT/AST 48 U/L (15-37); SGPT/ALT 163 U/L (12-78); TOT PROT 6.9 g/dl (6.4-8.2)
--- NOTE | 2016-07-19 08:46 | PN ---
Progress Note (short form) - Note Progress Note: Subjective Patient seen and examined. Chart reviewed. Face is much more swollen today-- Pt reports for the past 2 days. Also has diffuse rash all over body. Itching present. Otherwise no distress. Afebrile. Had skin biopsy done few days ago. Objective Last Vital Signs Temp Pulse Resp BP Pulse Ox 98.3 F 91 H 20 145/77 97 07/19/16 06:00 07/19/16 06:00 07/19/16 06:00 07/19/16 06:00 07/18/16 21:00 CBC, BMP 07/19/16 07:10 07/19/16 07:10 Laboratory Results - last 24 hr 07/17/16 07/19/16 07/19/16 06:25 07:10 07:10 WBC 29.4 H RBC 2.88 L Hgb 9.2 L Hct 28.7 L MCV 99.9 H MCHC 32.1 RDW 14.9 Plt Count 318 D MPV 7.7 Neutrophils % Y Lymphocytes % Y Sodium 142 Potassium 4.7 Chloride 104 Carbon Dioxide 27 Anion Gap 11 BUN 11 Creatinine 0.9 Creat Clearance w eGFR > 60 Random Glucose 89 Calcium 8.8 Total Bilirubin 0.9 D AST 48 H D ALT 163 H Alkaline Phosphatase 244 H Total Protein 6.9 Albumin 2.9 L Carcinoembryonic Ag 0.8 Physical Exam Constitutional: Yes: No Distress Throat: Clear Cardiovascular: Yes: Regular Rate and Rhythm Respiratory: Yes: CTA Bilaterally Gastrointestinal: Yes: Normal Bowel Sounds, Soft, Abdomen, Obese. No: Tenderness Edema: No Integumentary: Yes: Rash (raised erythematous lesions over body) Neurological: Yes: WNL Assessment and Plan Sulphasalazine dc 5/8 antibiotics dc 5/8 on Prednisone Benadryl PRN for itching. ID and Dr. Puentes to follow. Discussed with Dr. Pedro today. Systemic steroids? Henry Delano like picture? Will also d/c PALMA inhibitors although there is no angioedema. Will follow. Biopsy results will be available per Dr Cabrera on 07/22/16-- call Documentation prepared by Michelle Franco, acting as a clinical medical transcriptionist for Alisha Anand MD. <Michelle Franco - Last Filed: 07/19/16 10:33> Problem List - Problems (1) Fever Code(s): R50.9 - FEVER, UNSPECIFIED Qualifiers: Fever type: drug-induced Qualified Code(s): R50.2 - Drug induced fever (2) Transaminitis Code(s): R74.0 - NONSPEC ELEV OF LEVELS OF TRANSAMNS & LACTIC ACID DEHYDRGNSE (3) Viral syndrome Code(s): B34.9 - VIRAL INFECTION, UNSPECIFIED (4) Weakness Code(s): R53.1 - WEAKNESS (5) Pancytopenia Code(s): D61.818 - OTHER PANCYTOPENIA (6) Rash Code(s): R21 - RASH AND OTHER NONSPECIFIC SKIN ERUPTION <Alisha Anand - Last Filed: 07/19/16 08:46>
[2016-07-19] MEDS ORDERED: predniSONE 20 MG TABLET (UD) PO SCH (10:00)
--- NOTE | 2016-07-19 10:35 | PN ---
Progress Note, Physician Chief Complaint: ID Followup for worsening facial rash facial edema No fever but on steroids Rash more diffuse now Exertional dyspnea when asked - Current Medication List Current Medications: Active Medications Acetaminophen (Tylenol -) 500 mg PO Q8H PRN PRN Reason: FEVER OR PAIN Artificial Tears (Artificial Tears) 1 drop OU QID PRN PRN Reason: DRY EYES Last Admin: 07/18/16 22:00 Dose: 1 drop Artificial Tears (Artificial Tears Ointment -) 1 applic OU HS [facility] Last Admin: 07/18/16 21:56 Dose: 1 applic Atenolol (Tenormin -) 25 mg PO DAILY [facility] Last Admin: 07/18/16 10:10 Dose: 25 mg Bacitracin (Bacitracin -) 1 applic TP BID [facility] Last Admin: 07/18/16 21:57 Dose: 1 applic Benzocaine/Menthol (Cepacol Lozenge -) 1 each MM PRN PRN PRN Reason: SORE THROAT Last Admin: 07/17/16 14:04 Dose: 1 each Calamine (Calamine 8% Topical Lotion -) 1 applic TP BID PRN PRN Reason: FOR ITCHING Last Admin: 07/14/16 14:32 Dose: 1 applic Ibuprofen (Motrin -) 600 mg PO Q6H PRN PRN Reason: FEVER Last Admin: 07/15/16 17:56 Dose: 600 mg Lidocaine/Aluminum/Magnesium/Simeth (Magic Mouthwash *Sjr Formula* -) 5 ml MM TIDAC PRN PRN Reason: MOUTH PAIN Last Admin: 07/14/16 16:53 Dose: 5 ml Nystatin (Nystop Powder -) 1 applic TP DAILY [facility] Last Admin: 07/18/16 10:16 Dose: 1 applic Ondansetron HCl (Zofran Injection) 4 mg IVPB Q8H PRN PRN Reason: NAUSEA AND/OR VOMITING Last Admin: 07/18/16 10:11 Dose: 4 mg Pantoprazole Sodium (Protonix -) 20 mg PO DAILY [facility] Last Admin: 07/18/16 10:10 Dose: 20 mg Polyethylene Glycol (Miralax (For Daily Use) -) 17 gm PO DAILY PRN PRN Reason: CONSTIPATION Last Admin: 07/17/16 20:36 Dose: 17 gm Prednisone (Deltasone -) 40 mg PO DAILY [facility] Pregabalin (Lyrica -) 75 mg PO BID [facility] Last Admin: 07/18/16 21:56 Dose: 75 mg Tramadol HCl (Ultram -) 100 mg PO Q8H PRN PRN Reason: PAIN Last Admin: 07/18/16 19:31 Dose: 100 mg Triamcinolone Acetonide (Triamcinolone Acetonide) 1 applic TP BID [facility] Last Admin: 07/18/16 21:57 Dose: 1 applic Zolpidem Tartrate (Ambien -) 10 mg PO HS PRN PRN Reason: INSOMNIA Last Admin: 07/18/16 23:14 Dose: 10 mg - Objective Vital Signs: Vital Signs Temperature 98.3 F 07/19/16 06:00 Pulse Rate 91 H 07/19/16 06:00 Respiratory Rate 20 07/19/16 06:00 Blood Pressure 145/77 07/19/16 06:00 O2 Sat by Pulse Oximetry (%) 97 07/18/16 21:00 Constitutional: Yes: Well Nourished, No Distress HENT: Yes: Other (Facial swelling no slouphing of mucosa). No: Thrush Neck: Yes: WNL, Supple Cardiovascular: Yes: S1, S2 Respiratory: Yes: WNL, Regular, CTA Bilaterally. No: Rales, Rhonchi Gastrointestinal: Yes: Soft. No: Tenderness Integumentary: Yes: Other (Diffuse mac pap rash back breasts facial edema) Labs: CBC, BMP 07/19/16 07:10 07/19/16 07:10 Problem List - Problems (1) Transaminitis Code(s): R74.0 - NONSPEC ELEV OF LEVELS OF TRANSAMNS & LACTIC ACID DEHYDRGNSE (2) Fever Code(s): R50.9 - FEVER, UNSPECIFIED Qualifiers: Fever type: drug-induced Qualified Code(s): R50.2 - Drug induced fever (3) Viral syndrome Code(s): B34.9 - VIRAL INFECTION, UNSPECIFIED (4) Drug reaction Code(s): T88.7XXA - UNSP ADVERSE EFFECT OF DRUG OR MEDICAMENT, INIT ENCNTR Qualifiers: Encounter type: subsequent encounter Qualified Code(s): T88.7XXD - Unspecified adverse effect of drug or medicament, subsequent encounter Assessment/Plan Microbiology 07/11/16 11:30 Urine - Urine Clean Catch Urine Culture - Final NO GROWTH OBTAINED 07/11/16 02:30 Blood - Peripheral Venous Blood Culture - Final NO GROWTH AFTER 5 DAYS INCUBATION 07/11/16 02:00 Blood - Peripheral Venous Blood Culture - Final NO GROWTH AFTER 5 DAYS INCUBATION 07/14/16 22:00 Blood - Peripheral Venous Blood Culture - Preliminary NO GROWTH OBTAINED AFTER 96 HOURS, INCUBATION TO CONTINUE FOR 1 DAYS. 07/14/16 21:30 Blood - Peripheral Venous Blood Culture - Preliminary NO GROWTH OBTAINED AFTER 96 HOURS, INCUBATION TO CONTINUE FOR 1 DAYS. Laboratory Tests 07/12/16 07/12/16 07/12/16 06:38 06:38 06:38 WBC Hct Plt Count ESR 84 H BUN Creatinine Creat Clearance w eGFR AST ALT Alkaline Phosphatase Hepatitis C Ab (EIA) >11.0 H Monoscreen Negative 07/19/16 07/19/16 07:10 07:10 WBC 29.4 H Hct 28.7 L Plt Count 318 D ESR BUN 11 Creatinine 0.9 Creat Clearance w eGFR > 60 AST 48 H D ALT 163 H Alkaline Phosphatase 244 H Hepatitis C Ab (EIA) Monoscreen Assessment Severe sulfasalazine in the setting of possible underlying collagen disease Lupus May have pulmonary involvement but O2 sat good now 97% Prednisone 40 mg now Plan Biopsy back on 07/21 not till then Increase steroids [address] Cabrera Rheumatology follow up So far no mucous membrane involvement seen Willis ORTIZ
[2016-07-19] MEDS: PANTOPRAZOLE 20 MG TABLET (FP) PO SCH (11:06)
[2016-07-19] MEDS: PREGABALIN 75 MG CAPSULE PO SCH ×2 (11:06→22:17)
[2016-07-19] MEDS: ATENOLOL 25 MG TABLET (FP) PO SCH (11:09)
[2016-07-19] MEDS: traMADol HCL 50 MG TABLET PO PRN ×2 (11:15→22:17)
[2016-07-19] MEDS: NYSTATIN POWDER 100,000 UNITS/GM - 15 GM TOPICAL POWDER TP SCH (11:17)
[2016-07-19] MEDS: BACITRACIN 30 GM TUBE TOPICAL OINTMENT TP SCH ×2 (11:17→22:19)
[2016-07-19] MEDS: TRIAMCINOLONE ACET 0.1% CREAM 80 GM TUBE TP SCH ×2 (11:17→22:19)
--- NOTE | 2016-07-19 14:08 | PN ---
Progress Note (short form) - Note Progress Note: The patient's skin rash progressing: pruritic hives and edema of the face. She has not have fever, there is no mucosal involvement and denies joint pain. History of hepatitis C apparently treated. On the physical examination lungs are clear and she does chun have active joints. Hives in trunk and arms. Puffiness of face suggestive of angioedema. Opatient had skin Bx by Dr. Cabrera , results pending. Laboratory work-up from 12/21/13 revealed anti-Sm, anti-[employer], anti-SSA, anti-SSB , rheumatoid factor and anti-SCL-70 negative. Work-up from 08/12/15 revealed MAXX 1:80 with centromere pattern. Urinalysis was normal. Leukocytosis related to steroids. New laboratory work in this admission revealed hepC antibody >11, PCR pending. Impression. Skin rash and edema of face is suggestive of allergic reaction. Skin Bx pending. Based on previous serology it is unlikely that she has lupus, new serology is pending. I cannot rule out persistent rash related to allergy to Sulfonamide. Prednisone was increased to 40 mg BID. I will follow labs and skin bx. Problem List - Problems (1) Drug reaction Code(s): T88.7XXA - UNSP ADVERSE EFFECT OF DRUG OR MEDICAMENT, INIT ENCNTR Qualifiers: Encounter type: subsequent encounter Qualified Code(s): T88.7XXD - Unspecified adverse effect of drug or medicament, subsequent encounter (2) Rheumatoid arthritis of multiple sites without rheumatoid factor Code(s): M06.09 - RHEUMATOID ARTHRITIS W/O RHEUMATOID FACTOR, MULTIPLE SITES
[2016-07-19 14:29] LABS: PLATELET ESTIMATE ADEQUATE (NORMAL)
[2016-07-19] MEDS: predniSONE 20 MG TABLET (UD) PO SCH (22:16)
[2016-07-19] MEDS: ARTIFICIAL TEARS (POLYVINYL ALCOHOL 1.4%) OPTH DROPS OU PRN (22:22)
[2016-07-19] MEDS: MINERAL OIL/PETROLATUM,WHITE 3.5 GM TUBE OU SCH (22:22)
[2016-07-19] MEDS: ZOLPIDEM TARTRATE 5 MG TABLET PO PRN (22:47)
[2016-07-20 00:06] LABS: ALDOLASE 9.3 U/L (3.3-10.3)
[2016-07-20] MEDS ORDERED: PT OWN MED DRAWER 7, Y5N ONE ×2 (09:50→20:46)
[2016-07-20] MEDS: ATENOLOL 25 MG TABLET (FP) PO SCH (10:00)
[2016-07-20] MEDS: predniSONE 20 MG TABLET (UD) PO SCH ×2 (10:01→21:14)
[2016-07-20] MEDS: BACITRACIN 30 GM TUBE TOPICAL OINTMENT TP SCH ×2 (10:02→21:15)
[2016-07-20] MEDS: NYSTATIN POWDER 100,000 UNITS/GM - 15 GM TOPICAL POWDER TP SCH (10:02)
[2016-07-20] MEDS: PREGABALIN 75 MG CAPSULE PO SCH ×2 (10:03→21:14)
[2016-07-20] MEDS: PANTOPRAZOLE 20 MG TABLET (FP) PO SCH (10:03)
[2016-07-20] MEDS: TRIAMCINOLONE ACET 0.1% CREAM 80 GM TUBE TP SCH ×2 (10:04→21:16)
[2016-07-20] MEDS: ARTIFICIAL TEARS (POLYVINYL ALCOHOL 1.4%) OPTH DROPS OU PRN ×4 (10:06→22:33)
[2016-07-20] MEDS: traMADol HCL 50 MG TABLET PO PRN (10:14)
--- NOTE | 2016-07-20 11:21 | PN ---
Progress Note (short form) - Note Progress Note: eyes more open, still with facial swelling no involvement of the mouth sulfasalazine d/niall 07/12 antibiotics d/niall 07/12 Vital Signs Period Temp Pulse Resp BP Sys/Perez Pulse Ox Last 24 Hr 97.8 F-98.4 F 73-90 16-18 124-159/63-89 +facial swelling, no conjunctivitis, no oral lesions neck supple cor-rrr lungs clear abd soft,nt ext no edema rash on back/arms, upper thighs, chest- maculopapular CBC, BMP 07/19/16 07:10 07/19/16 07:10 hep c and b viral load not detected Microbiology 07/14/16 22:00 Blood - Peripheral Venous Blood Culture - Final NO GROWTH AFTER 5 DAYS INCUBATION 07/14/16 21:30 Blood - Peripheral Venous Blood Culture - Final NO GROWTH AFTER 5 DAYS INCUBATION 07/11/16 02:00 Blood - Peripheral Venous Blood Culture - Final NO GROWTH AFTER 5 DAYS INCUBATION 07/11/16 02:30 Blood - Peripheral Venous Blood Culture - Final NO GROWTH AFTER 5 DAYS INCUBATION 07/11/16 11:30 Urine - Urine Clean Catch Urine Culture - Final NO GROWTH OBTAINED a/p ?DRESS suspect drug reaction to sulfasalazine now d/niall 07/12 continue steroids- skin biopsy pend
--- NOTE | 2016-07-20 12:40 | PN ---
Progress Note, Physician Chief Complaint: has more raised rash over body , back, arms she has burning sensation on face face is puffy Pruritic no SOB feels tired - Current Medication List Current Medications: Active Medications Acetaminophen (Tylenol -) 500 mg PO Q8H PRN PRN Reason: FEVER OR PAIN Artificial Tears (Artificial Tears) 1 drop OU QID PRN PRN Reason: DRY EYES Last Admin: 07/20/16 10:06 Dose: 1 drop Artificial Tears (Artificial Tears Ointment -) 1 applic OU HS [facility] Last Admin: 07/19/16 22:22 Dose: Not Given Atenolol (Tenormin -) 25 mg PO DAILY [facility] Last Admin: 07/20/16 10:00 Dose: 25 mg Bacitracin (Bacitracin -) 1 applic TP BID [facility] Last Admin: 07/20/16 10:02 Dose: 1 applic Benzocaine/Menthol (Cepacol Lozenge -) 1 each MM PRN PRN PRN Reason: SORE THROAT Last Admin: 07/17/16 14:04 Dose: 1 each Calamine (Calamine 8% Topical Lotion -) 1 applic TP BID PRN PRN Reason: FOR ITCHING Last Admin: 07/14/16 14:32 Dose: 1 applic Diphenhydramine HCl (Benadryl Injection -) 25 mg IVPUSH Q8H PRN Last Admin: 07/20/16 11:16 Dose: 25 mg Ibuprofen (Motrin -) 600 mg PO Q6H PRN PRN Reason: FEVER Last Admin: 07/15/16 17:56 Dose: 600 mg Lidocaine/Aluminum/Magnesium/Simeth (Magic Mouthwash *Sjr Formula* -) 5 ml MM TIDAC PRN PRN Reason: MOUTH PAIN Last Admin: 07/14/16 16:53 Dose: 5 ml Nystatin (Nystop Powder -) 1 applic TP DAILY [facility] Last Admin: 07/20/16 10:02 Dose: 1 applic Ondansetron HCl (Zofran Injection) 4 mg IVPB Q8H PRN PRN Reason: NAUSEA AND/OR VOMITING Last Admin: 07/18/16 10:11 Dose: 4 mg Pantoprazole Sodium (Protonix -) 20 mg PO DAILY [facility] Last Admin: 07/20/16 10:03 Dose: 20 mg Polyethylene Glycol (Miralax (For Daily Use) -) 17 gm PO DAILY PRN PRN Reason: CONSTIPATION Last Admin: 07/17/16 20:36 Dose: 17 gm Prednisone (Deltasone -) 40 mg PO BID [facility] Last Admin: 07/20/16 10:01 Dose: 40 mg Pregabalin (Lyrica -) 75 mg PO BID [facility] Last Admin: 07/20/16 10:03 Dose: 75 mg Triamcinolone Acetonide (Triamcinolone Acetonide) 1 applic TP BID [facility] Last Admin: 07/20/16 10:04 Dose: 1 applic - Objective Vital Signs: Vital Signs Temperature 98.2 F 07/20/16 05:56 Pulse Rate 73 07/20/16 05:56 Respiratory Rate 18 07/20/16 05:56 Blood Pressure 159/89 07/20/16 05:56 O2 Sat by Pulse Oximetry (%) 97 07/18/16 21:00 Constitutional: Yes: No Distress, Other (facial edema) Cardiovascular: Yes: Regular Rate and Rhythm Respiratory: Yes: CTA Bilaterally Gastrointestinal: Yes: Normal Bowel Sounds, Soft. No: Tenderness Edema: No Labs: CBC, BMP 07/19/16 07:10 07/19/16 07:10 Problem List - Problems (1) Drug reaction Code(s): T88.7XXA - UNSP ADVERSE EFFECT OF DRUG OR MEDICAMENT, INIT ENCNTR Qualifiers: Encounter type: subsequent encounter Qualified Code(s): T88.7XXD - Unspecified adverse effect of drug or medicament, subsequent encounter (2) Fever Code(s): R50.9 - FEVER, UNSPECIFIED Qualifiers: Fever type: drug-induced Qualified Code(s): R50.2 - Drug induced fever (3) Pancytopenia Code(s): D61.818 - OTHER PANCYTOPENIA (4) Rash Code(s): R21 - RASH AND OTHER NONSPECIFIC SKIN ERUPTION (5) Rheumatoid arthritis of 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
[2016-07-20] MEDS: ZOLPIDEM TARTRATE 5 MG TABLET PO PRN (21:49)
[2016-07-20] MEDS: MINERAL OIL/PETROLATUM,WHITE 3.5 GM TUBE OU SCH (22:34)
[2016-07-21] MEDS: traMADol HCL 50 MG TABLET PO PRN ×2 (02:36→21:16)
[2016-07-21 07:54] LABS: BASOPHIL 0.4 % (0-2.0); EOSINOPHIL 0.1 % (0-4.5); MCH 32.5 pg (25.7-33.7); MCHC 32.1 g/dl (32.0-36.0); MEAN CELL VOLUME 101.5 fl (80-96); MEAN PLT VOLUME 7.9 fl (7.5-11.1); NEUTROPHILS 46.8 % (42.8-82.8); PLATELET COUNT 327 K/MM3 (134-434); WHITE BLOOD COUNT 13.6 K/mm3 (4.0-10.0)
--- NOTE | 2016-07-21 08:01 | PN ---
Progress Note, Physician Chief Complaint: ID Looking at her she is about 50% better in regards to facial angioedema No mouth or eye involvement Remains afebrile - Current Medication List Current Medications: Active Medications Acetaminophen (Tylenol -) 500 mg PO Q8H PRN PRN Reason: FEVER OR PAIN Artificial Tears (Artificial Tears) 1 drop OU QID PRN PRN Reason: DRY EYES Last Admin: 07/20/16 21:19 Dose: 1 drop Artificial Tears (Artificial Tears Ointment -) 1 applic OU HS [facility] Last Admin: 07/20/16 22:34 Dose: Not Given Atenolol (Tenormin -) 25 mg PO DAILY [facility] Last Admin: 07/20/16 10:00 Dose: 25 mg Bacitracin (Bacitracin -) 1 applic TP BID [facility] Last Admin: 07/20/16 21:15 Dose: 1 applic Benzocaine/Menthol (Cepacol Lozenge -) 1 each MM PRN PRN PRN Reason: SORE THROAT Last Admin: 07/17/16 14:04 Dose: 1 each Calamine (Calamine 8% Topical Lotion -) 1 applic TP BID PRN PRN Reason: FOR ITCHING Last Admin: 07/14/16 14:32 Dose: 1 applic Diphenhydramine HCl (Benadryl Injection -) 50 mg IVPUSH Q8H PRN PRN Reason: FOR ITCHING Last Admin: 07/21/16 05:13 Dose: 50 mg Ibuprofen (Motrin -) 600 mg PO Q6H PRN PRN Reason: FEVER Last Admin: 07/15/16 17:56 Dose: 600 mg Lidocaine/Aluminum/Magnesium/Simeth (Magic Mouthwash *Sjr Formula* -) 5 ml MM TIDAC PRN PRN Reason: MOUTH PAIN Last Admin: 07/14/16 16:53 Dose: 5 ml Nystatin (Nystop Powder -) 1 applic TP DAILY [facility] Last Admin: 07/20/16 10:02 Dose: 1 applic Ondansetron HCl (Zofran Injection) 4 mg IVPB Q8H PRN PRN Reason: NAUSEA AND/OR VOMITING Last Admin: 07/18/16 10:11 Dose: 4 mg Pantoprazole Sodium (Protonix -) 20 mg PO DAILY [facility] Last Admin: 07/20/16 10:03 Dose: 20 mg Polyethylene Glycol (Miralax (For Daily Use) -) 17 gm PO DAILY PRN PRN Reason: CONSTIPATION Last Admin: 07/17/16 20:36 Dose: 17 gm Prednisone (Deltasone -) 40 mg PO BID [facility] Last Admin: 07/20/16 21:14 Dose: 40 mg Pregabalin (Lyrica -) 75 mg PO BID [facility] Last Admin: 07/20/16 21:14 Dose: 75 mg Tramadol HCl (Ultram -) 100 mg PO Q8H PRN PRN Reason: PAIN Last Admin: 07/21/16 02:36 Dose: 100 mg Triamcinolone Acetonide (Triamcinolone Acetonide) 1 applic TP BID [facility] Last Admin: 07/20/16 21:16 Dose: 1 applic Zolpidem Tartrate (Ambien -) 10 mg PO HS PRN PRN Reason: INSOMNIA Last Admin: 07/20/16 21:49 Dose: 10 mg - Objective Vital Signs: Vital Signs Temperature 98.1 F 07/21/16 05:30 Pulse Rate 74 07/21/16 05:30 Respiratory Rate 20 07/20/16 21:00 Blood Pressure 143/80 07/21/16 05:30 O2 Sat by Pulse Oximetry (%) 97 07/18/16 21:00 Constitutional: Yes: Well Nourished, No Distress Eyes: Yes: Other (Lid edema less) Cardiovascular: Yes: Murmur, S1, S2 Respiratory: Yes: WNL, Regular, CTA Bilaterally Gastrointestinal: Yes: WNL, Normal Bowel Sounds, Soft. No: Tenderness Edema: No Integumentary: Yes: Other (Diffuse rash back chest LE) Problem List - Problems (1) Transaminitis Code(s): R74.0 - NONSPEC ELEV OF LEVELS OF TRANSAMNS & LACTIC ACID DEHYDRGNSE (2) Fever Code(s): R50.9 - FEVER, UNSPECIFIED Qualifiers: Fever type: drug-induced Qualified Code(s): R50.2 - Drug induced fever (3) Viral syndrome Code(s): B34.9 - VIRAL INFECTION, UNSPECIFIED (4) Drug reaction Code(s): T88.7XXA - UNSP ADVERSE EFFECT OF DRUG OR MEDICAMENT, INIT ENCNTR Qualifiers: Encounter type: subsequent encounter Qualified Code(s): T88.7XXD - Unspecified adverse effect of drug or medicament, subsequent encounter Assessment/Plan Laboratory Tests 07/17/16 07/19/16 07/21/16 06:25 07:10 06:30 WBC 13.6 H D Hgb 9.5 L Hct 29.7 L Plt Count 327 BUN 11 Creatinine 0.9 AST 48 H D ALT 163 H Alkaline Phosphatase 244 H MAXX Centromere Pattern 1:320 H Double Strand DNA Ab <1 Assesment Severe drug ( sulfa ) reaction now improving angioedema improved Plan Would feel comfortable discharging tomorrow on prednisone Doubt skin biopsy going to impact discharge Willis ORTIZ
[2016-07-21 08:50] LABS: ALK PHOS 193 U/L (45-117); ANION GAP 9 (8-16); BILIRUBIN,TOTAL 0.6 mg/dL (0.2-1.0); CALCIUM 8.6 mg/dL (8.5-10.1); CO2 28 mmol/L (21-32); CREATININE 0.9 mg/dL (0.55-1.02); GLUCOSE,RANDOM 162 mg/dL (74-106); SGOT/AST 43 U/L (15-37); SGPT/ALT 141 U/L (12-78)
[2016-07-21] MEDS ORDERED: PT OWN MED DRAWER 7, Y5N ONE (10:53)
[2016-07-21] MEDS: ATENOLOL 25 MG TABLET (FP) PO SCH (10:56)
[2016-07-21] MEDS: predniSONE 20 MG TABLET (UD) PO SCH ×2 (10:56→21:16)
[2016-07-21] MEDS: PREGABALIN 75 MG CAPSULE PO SCH ×2 (10:57→21:16)
[2016-07-21] MEDS: PANTOPRAZOLE 20 MG TABLET (FP) PO SCH (10:57)
[2016-07-21] MEDS: BACITRACIN 30 GM TUBE TOPICAL OINTMENT TP SCH ×2 (10:59→21:15)
[2016-07-21] MEDS: TRIAMCINOLONE ACET 0.1% CREAM 80 GM TUBE TP SCH ×2 (10:59→21:14)
[2016-07-21] MEDS: NYSTATIN POWDER 100,000 UNITS/GM - 15 GM TOPICAL POWDER TP SCH (10:59)
--- NOTE | 2016-07-21 12:51 | PN ---
Progress Note, Physician Chief Complaint: has decreased facial edema she has burning sensation on face Pruritic no SOB feels tired - Current Medication List Current Medications: Active Medications Acetaminophen (Tylenol -) 500 mg PO Q8H PRN PRN Reason: FEVER OR PAIN Artificial Tears (Artificial Tears) 1 drop OU QID PRN PRN Reason: DRY EYES Last Admin: 07/20/16 21:19 Dose: 1 drop Artificial Tears (Artificial Tears Ointment -) 1 applic OU HS [facility] Last Admin: 07/20/16 22:34 Dose: Not Given Atenolol (Tenormin -) 25 mg PO DAILY [facility] Last Admin: 07/21/16 10:56 Dose: 25 mg Bacitracin (Bacitracin -) 1 applic TP BID [facility] Last Admin: 07/21/16 10:59 Dose: 1 applic Benzocaine/Menthol (Cepacol Lozenge -) 1 each MM PRN PRN PRN Reason: SORE THROAT Last Admin: 07/17/16 14:04 Dose: 1 each Calamine (Calamine 8% Topical Lotion -) 1 applic TP BID PRN PRN Reason: FOR ITCHING Last Admin: 07/14/16 14:32 Dose: 1 applic Diphenhydramine HCl (Benadryl Injection -) 50 mg IVPUSH Q8H PRN PRN Reason: FOR ITCHING Last Admin: 07/21/16 05:13 Dose: 50 mg Ibuprofen (Motrin -) 600 mg PO Q6H PRN PRN Reason: FEVER Last Admin: 07/15/16 17:56 Dose: 600 mg Lidocaine/Aluminum/Magnesium/Simeth (Magic Mouthwash *Sjr Formula* -) 5 ml MM TIDAC PRN PRN Reason: MOUTH PAIN Last Admin: 07/14/16 16:53 Dose: 5 ml Nystatin (Nystop Powder -) 1 applic TP DAILY [facility] Last Admin: 07/21/16 10:59 Dose: 1 applic Ondansetron HCl (Zofran Injection) 4 mg IVPB Q8H PRN PRN Reason: NAUSEA AND/OR VOMITING Last Admin: 07/18/16 10:11 Dose: 4 mg Pantoprazole Sodium (Protonix -) 20 mg PO DAILY [facility] Last Admin: 07/21/16 10:57 Dose: 20 mg Polyethylene Glycol (Miralax (For Daily Use) -) 17 gm PO DAILY PRN PRN Reason: CONSTIPATION Last Admin: 07/17/16 20:36 Dose: 17 gm Prednisone (Deltasone -) 40 mg PO BID [facility] Last Admin: 07/21/16 10:56 Dose: 40 mg Pregabalin (Lyrica -) 75 mg PO BID [facility] Last Admin: 07/21/16 10:57 Dose: 75 mg Tramadol HCl (Ultram -) 100 mg PO Q8H PRN PRN Reason: PAIN Last Admin: 07/21/16 02:36 Dose: 100 mg Triamcinolone Acetonide (Triamcinolone Acetonide) 1 applic TP BID [facility] Last Admin: 07/21/16 10:59 Dose: 1 applic Zolpidem Tartrate (Ambien -) 10 mg PO HS PRN PRN Reason: INSOMNIA Last Admin: 07/20/16 21:49 Dose: 10 mg - Objective Vital Signs: Vital Signs Temperature 98.1 F 07/21/16 09:00 Pulse Rate 79 07/21/16 09:00 Respiratory Rate 20 07/21/16 09:00 Blood Pressure 158/87 07/21/16 09:00 O2 Sat by Pulse Oximetry (%) 99 07/21/16 09:00 Constitutional: Yes: No Distress Cardiovascular: Yes: Regular Rate and Rhythm Respiratory: Yes: CTA Bilaterally Gastrointestinal: Yes: Normal Bowel Sounds, Soft. No: Distention Extremities: Yes: Other (rash over arms and legs, central chest and back) Edema: No Psychiatric: Yes: Alert Labs: CBC, BMP 07/21/16 06:30 07/21/16 06:30 Problem List - Problems (1) Drug reaction Code(s): T88.7XXA - UNSP ADVERSE EFFECT OF DRUG OR MEDICAMENT, INIT ENCNTR Qualifiers: Encounter type: subsequent encounter Qualified Code(s): T88.7XXD - Unspecified adverse effect of drug or medicament, subsequent encounter (2) Fever Code(s): R50.9 - FEVER, UNSPECIFIED Qualifiers: Fever type: drug-induced Qualified Code(s): R50.2 - Drug induced fever (3) Pancytopenia Code(s): D61.818 - OTHER PANCYTOPENIA (4) Rash Code(s): R21 - RASH AND OTHER NONSPECIFIC SKIN ERUPTION (5) Rheumatoid arthritis of 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
[2016-07-21] MEDS: ARTIFICIAL TEARS (POLYVINYL ALCOHOL 1.4%) OPTH DROPS OU PRN (21:14)
[2016-07-21] MEDS: diphenhydrAMINE HCL 25 MG CAPSULE (FP) PO PRN (22:25)
[2016-07-21] MEDS: ZOLPIDEM TARTRATE 5 MG TABLET PO PRN (22:25)
[2016-07-21] MEDS: MINERAL OIL/PETROLATUM,WHITE 3.5 GM TUBE OU SCH (22:28)
[2016-07-22] MEDS: diphenhydrAMINE HCL 25 MG CAPSULE (FP) PO PRN (05:50)
[2016-07-22] MEDS: traMADol HCL 50 MG TABLET PO PRN (05:50)
[2016-07-22 08:55] VITALS: BP 157/96; PULSE 62; TEMP 98
--- NOTE | 2016-07-22 08:57 | PN ---
Progress Note, Physician Chief Complaint: ID Continues to improve less facial edema now and rash gradually subsiding - Current Medication List Current Medications: Active Medications Acetaminophen (Tylenol -) 500 mg PO Q8H PRN PRN Reason: FEVER OR PAIN Artificial Tears (Artificial Tears) 1 drop OU QID PRN PRN Reason: DRY EYES Last Admin: 07/21/16 21:14 Dose: 1 drop Artificial Tears (Artificial Tears Ointment -) 1 applic OU HS [facility] Last Admin: 07/21/16 22:28 Dose: Not Given Atenolol (Tenormin -) 25 mg PO DAILY [facility] Last Admin: 07/21/16 10:56 Dose: 25 mg Bacitracin (Bacitracin -) 1 applic TP BID [facility] Last Admin: 07/21/16 21:15 Dose: 1 applic Benzocaine/Menthol (Cepacol Lozenge -) 1 each MM PRN PRN PRN Reason: SORE THROAT Last Admin: 07/17/16 14:04 Dose: 1 each Calamine (Calamine 8% Topical Lotion -) 1 applic TP BID PRN PRN Reason: FOR ITCHING Last Admin: 07/14/16 14:32 Dose: 1 applic Diphenhydramine HCl (Benadryl -) 50 mg PO Q8H PRN PRN Reason: FOR ITCHING Last Admin: 07/22/16 05:50 Dose: 50 mg Ibuprofen (Motrin -) 600 mg PO Q6H PRN PRN Reason: FEVER Last Admin: 07/15/16 17:56 Dose: 600 mg Lidocaine/Aluminum/Magnesium/Simeth (Magic Mouthwash *Sjr Formula* -) 5 ml MM TIDAC PRN PRN Reason: MOUTH PAIN Last Admin: 07/14/16 16:53 Dose: 5 ml Nystatin (Nystop Powder -) 1 applic TP DAILY [facility] Last Admin: 07/21/16 10:59 Dose: 1 applic Ondansetron HCl (Zofran Injection) 4 mg IVPB Q8H PRN PRN Reason: NAUSEA AND/OR VOMITING Last Admin: 07/18/16 10:11 Dose: 4 mg Pantoprazole Sodium (Protonix -) 20 mg PO DAILY [facility] Last Admin: 07/21/16 10:57 Dose: 20 mg Polyethylene Glycol (Miralax (For Daily Use) -) 17 gm PO DAILY PRN PRN Reason: CONSTIPATION Last Admin: 07/17/16 20:36 Dose: 17 gm Prednisone (Deltasone -) 40 mg PO BID [facility] Last Admin: 07/21/16 21:16 Dose: 40 mg Pregabalin (Lyrica -) 75 mg PO BID [facility] Last Admin: 07/21/16 21:16 Dose: 75 mg Tramadol HCl (Ultram -) 100 mg PO Q8H PRN PRN Reason: PAIN Last Admin: 07/22/16 05:50 Dose: 100 mg Triamcinolone Acetonide (Triamcinolone Acetonide) 1 applic TP BID [facility] Last Admin: 07/21/16 21:14 Dose: 1 applic Zolpidem Tartrate (Ambien -) 10 mg PO HS PRN PRN Reason: INSOMNIA Last Admin: 07/21/16 22:25 Dose: 10 mg - Objective Vital Signs: Vital Signs Temperature 98.5 F 07/22/16 05:53 Pulse Rate 65 07/22/16 05:53 Respiratory Rate 20 07/22/16 05:53 Blood Pressure 156/98 07/22/16 05:53 O2 Sat by Pulse Oximetry (%) 99 07/21/16 21:00 Neck: Yes: WNL, Supple Cardiovascular: Yes: S1, S2 Respiratory: Yes: WNL, Regular, CTA Bilaterally Gastrointestinal: Yes: WNL, Normal Bowel Sounds, Soft. No: Tenderness Integumentary: Yes: Rash Labs: CBC, BMP 07/21/16 06:30 07/21/16 06:30 Problem List - Problems (1) Transaminitis Code(s): R74.0 - NONSPEC ELEV OF LEVELS OF TRANSAMNS & LACTIC ACID DEHYDRGNSE (2) Fever Code(s): R50.9 - FEVER, UNSPECIFIED Qualifiers: Fever type: drug-induced Qualified Code(s): R50.2 - Drug induced fever (3) Viral syndrome Code(s): B34.9 - VIRAL INFECTION, UNSPECIFIED (4) Drug reaction Code(s): T88.7XXA - UNSP ADVERSE EFFECT OF DRUG OR MEDICAMENT, INIT ENCNTR Qualifiers: Encounter type: subsequent encounter Qualified Code(s): T88.7XXD - Unspecified adverse effect of drug or medicament, subsequent encounter Assessment/Plan Microbiology 07/14/16 22:00 Blood - Peripheral Venous Blood Culture - Final NO GROWTH AFTER 5 DAYS INCUBATION 07/14/16 21:30 Blood - Peripheral Venous Blood Culture - Final NO GROWTH AFTER 5 DAYS INCUBATION 07/11/16 11:30 Urine - Urine Clean Catch Urine Culture - Final NO GROWTH OBTAINED 07/11/16 02:30 Blood - Peripheral Venous Blood Culture - Final NO GROWTH AFTER 5 DAYS INCUBATION 07/11/16 02:00 Blood - Peripheral Venous Blood Culture - Final NO GROWTH AFTER 5 DAYS INCUBATION Laboratory Tests 07/17/16 07/21/16 06:25 06:30 WBC 13.6 H D Hgb 9.5 L Hct 29.7 L Plt Count 327 MAXX Centromere Pattern 1:320 H Double Strand DNA Ab <1 Assessment Sulfa reaction better Plan Discharge 8mg daily Tuesday 40 mg daily x3 days then 30 x 2 days 20 x 2 days 10mg x 2 days 5mg x 2 days off Await biopsy skin Willis ORTIZ
[2016-07-22] MEDS: predniSONE 20 MG TABLET (UD) PO SCH (10:13)
[2016-07-22] MEDS: ATENOLOL 25 MG TABLET (FP) PO SCH (10:13)
[2016-07-22] MEDS: PREGABALIN 75 MG CAPSULE PO SCH (10:13)
[2016-07-22] MEDS: PANTOPRAZOLE 20 MG TABLET (FP) PO SCH (10:13)
[2016-07-22] MEDS: BACITRACIN 30 GM TUBE TOPICAL OINTMENT TP SCH (10:13)
[2016-07-22] MEDS: NYSTATIN POWDER 100,000 UNITS/GM - 15 GM TOPICAL POWDER TP SCH (10:14)
[2016-07-22] MEDS: TRIAMCINOLONE ACET 0.1% CREAM 80 GM TUBE TP SCH (10:15)
--- NOTE | 2016-07-22 12:30 | PN ---
[id number]: Active Medications Acetaminophen (Tylenol -) 500 mg PO Q8H PRN PRN Reason: FEVER OR PAIN Artificial Tears (Artificial Tears) 1 drop OU QID PRN PRN Reason: DRY EYES Last Admin: 07/21/16 21:14 Dose: 1 drop Artificial Tears (Artificial Tears Ointment -) 1 applic OU HS [facility] Last Admin: 07/21/16 22:28 Dose: Not Given Atenolol (Tenormin -) 25 mg PO DAILY [facility] Last Admin: 07/22/16 10:13 Dose: 25 mg Bacitracin (Bacitracin -) 1 applic TP BID [facility] Last Admin: 07/22/16 10:13 Dose: 1 applic Benzocaine/Menthol (Cepacol Lozenge -) 1 each MM PRN PRN PRN Reason: SORE THROAT Last Admin: 07/17/16 14:04 Dose: 1 each Calamine (Calamine 8% Topical Lotion -) 1 applic TP BID PRN PRN Reason: FOR ITCHING Last Admin: 07/14/16 14:32 Dose: 1 applic Diphenhydramine HCl (Benadryl -) 50 mg PO Q8H PRN PRN Reason: FOR ITCHING Last Admin: 07/22/16 05:50 Dose: 50 mg Ibuprofen (Motrin -) 600 mg PO Q6H PRN PRN Reason: FEVER Last Admin: 07/15/16 17:56 Dose: 600 mg Lidocaine/Aluminum/Magnesium/Simeth (Magic Mouthwash *Sjr Formula* -) 5 ml MM TIDAC PRN PRN Reason: MOUTH PAIN Last Admin: 07/14/16 16:53 Dose: 5 ml Nystatin (Nystop Powder -) 1 applic TP DAILY [facility] Last Admin: 07/22/16 10:14 Dose: 1 applic Ondansetron HCl (Zofran Injection) 4 mg IVPB Q8H PRN PRN Reason: NAUSEA AND/OR VOMITING Last Admin: 07/18/16 10:11 Dose: 4 mg Pantoprazole Sodium (Protonix -) 20 mg PO DAILY [facility] Last Admin: 07/22/16 10:13 Dose: 20 mg Polyethylene Glycol (Miralax (For Daily Use) -) 17 gm PO DAILY PRN PRN Reason: CONSTIPATION Last Admin: 07/17/16 20:36 Dose: 17 gm Prednisone (Deltasone -) 40 mg PO BID [facility] Last Admin: 07/22/16 10:13 Dose: 40 mg Pregabalin (Lyrica -) 75 mg PO BID [facility] Last Admin: 07/22/16 10:13 Dose: 75 mg Tramadol HCl (Ultram -) 100 mg PO Q8H PRN PRN Reason: PAIN Last Admin: 07/22/16 05:50 Dose: 100 mg Triamcinolone Acetonide (Triamcinolone Acetonide) 1 applic TP BID [facility] Last Admin: 07/22/16 10:15 Dose: 1 applic Zolpidem Tartrate (Ambien -) 10 mg PO HS PRN PRN Reason: INSOMNIA Last Admin: 07/21/16 22:25 Dose: 10 mg - Objective Vital Signs: Vital Signs Temperature 98 F 07/22/16 08:55 Pulse Rate 62 07/22/16 08:55 Respiratory Rate 20 07/22/16 10:00 Blood Pressure 157/96 07/22/16 08:55 O2 Sat by Pulse Oximetry (%) 98 07/22/16 10:00 Labs: CBC, BMP 07/21/16 06:30 07/21/16 06:30 Problem List - Problems (1) Drug reaction Code(s): T88.7XXA - UNSP ADVERSE EFFECT OF DRUG OR MEDICAMENT, INIT ENCNTR Qualifiers: Encounter type: subsequent encounter Qualified Code(s): T88.7XXD - Unspecified adverse effect of drug or medicament, subsequent encounter (2) Fever Code(s): R50.9 - FEVER, UNSPECIFIED Qualifiers: Fever type: drug-induced Qualified Code(s): R50.2 - Drug induced fever (3) Pancytopenia Code(s): D61.818 - OTHER PANCYTOPENIA (4) Rash Code(s): R21 - RASH AND OTHER NONSPECIFIC SKIN ERUPTION (5) Rheumatoid arthritis of multiple sites without rheumatoid factor Code(s): M06.09 - RHEUMATOID ARTHRITIS W/O RHEUMATOID FACTOR, MULTIPLE SITES (6) Transaminitis Code(s): R74.0 - NONSPEC ELEV OF LEVELS OF TRANSAMNS & LACTIC ACID DEHYDRGNSE
--- NOTE | 2016-07-22 12:31 | DS ---
[id number] Rate 20 07/22/16 10:00 Blood Pressure 157/96 07/22/16 08:55 O2 Sat by Pulse Oximetry (%) 98 07/22/16 10:00 Constitutional: Yes: No Distress, Other (decreased facial edema) Cardiovascular: Yes: Regular Rate and Rhythm Respiratory: Yes: CTA Bilaterally Gastrointestinal: Yes: Normal Bowel Sounds, Soft, Abdomen, Obese. No: Distention, Tenderness Edema: No Integumentary: Yes: Rash (decreased rash and raised lesions all over body) Labs: CBC, BMP 07/21/16 06:30 07/21/16 06:30 Discharge Summary Reason For Visit: ELEVATED TRANSAMINASE MEASUREMENT Current Active Problems Autoimmune disease (Acute) Drug reaction (Acute) Hepatitis B antibody positive (Acute) Rheumatoid arthritis of multiple sites without rheumatoid factor (Acute) Weakness (Acute) Hospital Course: Pt admitted for recurrent fevers, elevated LFT, body rash , pancytopenia-- found to have Sulpha reaction. Seen by Rheumatology, ID, GI and Dermatology. Was on IV fluids. LFT getting better and pancytopenia resolving on Solumedrol Had skin biospy done by Dermatolog- she will need to follow with DR Cabrera for results. Hep B and Hep C negative. CT chest -- negative for interstitial pneumonitis Stable for dc home. Discharge with Prednisone 8omg daily till she comes to my office on Tuesday 40 mg daily x3 days then 30 x 2 days 20 x 2 days 10mg x 2 days 5mg x 2 days off Condition: Improved - Instructions Diet, Activity, Other Instructions: Pt was admitted on 07/10/16--discharged on 07/22/16. Follow up with Dr Leroy on and Dr Cabrera on 07/26/16 Referrals: Maye Leroy MD [Primary Care Provider] - Bere Cabrera [Staff Physician] - Disposition: HOME - Home Medications Comprehensive Discharge Medication List: Ambulatory Orders Atenolol [Tenormin -] 50 mg PO DAILY 05/07/11 Losartan Potassium [Cozaar -] 50 mg PO ASDIR 07/10/16 Meloxicam [Mobic] 15 mg PO DAILY 07/10/16 Ondansetron [Zofran -] 4 mg PO TID 07/10/16 Pregabalin [Lyrica -] 75 mg PO BID 07/10/16 Rosuvastatin Calcium 5 mg PO ASDIR 07/10/16 Tramadol HCl [Ultram -] 150 mg PO BID 07/10/16 Zolpidem Tartrate [Ambien] 10 mg PO HS 07/10/16 Calamine 8% Topical Lotion - 1 applic TP BID PRN #1 bottle 07/21/16 Diphenhydramine [Benadryl Capsule -] 50 mg PO TID #60 tab 07/21/16 Nystatin Powder [Nystop Powder -] 1 applic TP DAILY #1 applic 07/21/16 Pantoprazole Sodium [Protonix -] 20 mg PO DAILY #30 tab 07/21/16 Polyvinyl Alcohol [Artificial Tears] 1 drop OU QID PRN #1 drop 07/21/16 Prednisone [Deltasone -] 40 mg PO BID 30 Days 07/21/16 Triamcinolone Acetonide 1 applic TP BID #1 tube 07/21/16
== END 2016-07-22 14:37 | disposition home or self-care (01) | DRG 607 ==
LOC: JER 13:36 → JERBED 19:56 → J6S 23:33
PROVIDERS: ADMIT Internal Medicine; ATTEND Internal Medicine
PROC: 0HB4XZX Excision of Neck Skin, External Approach, Diagnostic (ICD-10-PCS; principal; 2016-07-16)
DX: R21 Rash and other nonspecific skin eruption (principal); C56.9 Malignant neoplasm of unspecified ovary; D61.818 Other pancytopenia; T37.0X5A Adverse effect of sulfonamides, initial encounter; I10 Essential (primary) hypertension; R74.0 Nonspecific elevation of levels of transaminase and lactic acid dehydrogenase [LDH]; R50.9 Fever, unspecified; G62.9 Polyneuropathy, unspecified; M48.00 Spinal stenosis, site unspecified; M06.09 Rheumatoid arthritis without rheumatoid factor, multiple sites; R50.2 Drug induced fever; K21.9 Gastro-esophageal reflux disease without esophagitis; R76.8 Other specified abnormal immunological findings in serum; H53.149 Visual discomfort, unspecified; M35.9 Systemic involvement of connective tissue, unspecified; T78.3XXA Angioneurotic edema, initial encounter
CPT/HCPCS: 36415; 71010-TC; 71250-TC; 74176-TC; 76705-TC; 80053; 80074; 81003; 81015; 82085; 82378; 82550; 82977; 83615; 83690; 83735; 84484; 85025; 85027; 85651; 86038; 86140; 86225; 86235; 86308; 86431; 86644; 86645; 86664; 86704; 86706; 86708; 87040; 87086; 87340; 87389; 87517; 87522; 93005; 93010; 99284-25

== ENCOUNTER 2016-09-27 15:31 | Inpatient (IN) | payer OTHER ==
--- NOTE | 2016-09-27 16:13 | PDOC ---
History of Present Illness <Jayson López - Last Filed: 09/27/16 18:15> - General History Source: Patient Exam Limitations: No Limitations - History of Present Illness Initial Comments: 09/27/16 17:22 The patient is a 66 year old female with a significant PMHx of HTN, osteoarthritis, rheumatoid arthritis, ovarian cancer who presents to the ED with weakness in legs and shaky hands. The patient states that her legs feel heavy and she cannot stand for more than 5 minutes at a time. She reports walking differently, stating that her gait is unsteady. She also states that it is hard to get up out of chairs. She reports that she has recently been dropping things because of her hand shaking. She also report epigastric pain. She recently saw her PCP who said her abdomen was distended and her legs were swelling. She states the pain is intermittent, and she presented to the ED in July and was told she has gallstones. She also has an allergic reaction to sulfa 2 months ago. Her face, legs and arms swelled up and she developed a diffuse rash on her body. Since then, she has been on prednisone and cyclosporine. She reports weight gain due to the prednisone. She also states that she has been urinating less frequently, despite being on water pills. She reports she had a colonoscopy over 5 years ago. She denies chest pain, SOB. She denies headache, dizziness. She denies nausea, vomiting, diarrhea. <Yadira Latham - Last Filed: 09/27/16 18:44> - General Chief Complaint: Pain, Acute Stated Complaint: ABD PAIN (PCP SENT) Past History - Past Medical History Anemia: No Asthma: No Cancer: Yes (ovarian) Cardiac Disorders: No CVA: No COPD: No CHF: No Dementia: No Diabetes: No GI Disorders: No Disorders: No HTN: Yes Hypercholesterolemia: No Liver Disease: No Seizures: No Thyroid Disease: No Other medical history: heb c - Surgical History Abdominal Surgery: Yes (LAP BAND 2002) Appendectomy: No Cardiac Surgery: No Cholecystectomy: No Lung Surgery: No Neurologic Surgery: (both cataract) Orthopedic Surgery: No - Immunization History Immunization Up to Date: Yes - Psycho/Social/Smoking Cessation Hx Anxiety: No Suicidal Ideation: No Smoking History: Former smoker Have you smoked in the past 12 months: No If you are a former smoker, when did you quit?: 1994 Information on smoking cessation initiated: No Hx Alcohol Use: No Drug/Substance Use Hx: No Substance Use Type: None Hx Substance Use Treatment: No <Jayson López - Last Filed: 09/27/16 18:15> <YeisonYadira A - Last Filed: 09/27/16 18:44> - Past Medical History Allergies/Adverse Reactions: Allergies Allergy/AdvReac Type Severity Reaction Status Date / Time sulfasalazine AdvReac Severe Rash Verified 09/27/16 16:23 latex AdvReac Mild Itching Verified 09/27/16 16:23 Home Medications: Ambulatory Orders Atenolol [Tenormin -] 50 mg PO DAILY 05/07/11 Losartan Potassium [Cozaar -] 50 mg PO ASDIR 07/10/16 Meloxicam [Mobic] 15 mg PO DAILY 07/10/16 Ondansetron [Zofran -] 4 mg PO TID 07/10/16 Pregabalin [Lyrica -] 75 mg PO BID 07/10/16 Tramadol HCl [Ultram -] 150 mg PO BID 07/10/16 Zolpidem Tartrate [Ambien] 10 mg PO HS 07/10/16 Diphenhydramine [Benadryl Capsule -] 50 mg PO TID #60 tab 07/21/16 Nystatin Powder [Nystop Powder -] 1 applic TP DAILY #1 applic 07/21/16 Pantoprazole Sodium [Protonix -] 20 mg PO DAILY #30 tab 07/21/16 Polyvinyl Alcohol [Artificial Tears] 1 drop OU QID PRN #1 drop 07/21/16 Triamcinolone Acetonide 1 applic TP BID #1 tube 07/21/16 Cyclosporine [Sandimmune] 100 mg PO DAILY 09/27/16 Prednisone [Deltasone -] 10 mg PO BID 09/27/16 Review of Systems - Review of Systems Able to Perform ROS?: Yes Comments:: 09/27/16 17:22 GENERAL/CONSTITUTIONAL: No fever or chills. HEAD, EYES, EARS, NOSE AND THROAT: No change in vision. No ear pain or discharge. No sore throat. CARDIOVASCULAR: No chest pain or shortness of breath. RESPIRATORY: No cough, wheezing, or hemoptysis. GASTROINTESTINAL: (+) epigastric pain, abdominal distension. No nausea, vomiting , diarrhea or constipation. GENITOURINARY: (+) less frequent urination. No dysuria, frequency. MUSCULOSKELETAL: No joint or muscle swelling or pain. No neck or back pain. SKIN: No rash NEUROLOGIC: (+) weakness in legs, shaky hands, unsteady gait. No headache, vertigo, loss of consciousness ENDOCRINE: No increased thirst. No abnormal weight change. HEMATOLOGIC/LYMPHATIC: No anemia, easy bleeding, or history of blood clots. ALLERGIC/IMMUNOLOGIC: No hives or skin allergy. <Yadira Latham - Last Filed: 09/27/16 18:44> *Physical Exam - Vital Signs Last Vital Signs Temp Pulse Resp BP Pulse Ox 98.0 F 75 20 136/70 100 09/27/16 15:46 09/27/16 15:46 09/27/16 15:46 09/27/16 15:46 09/27/16 15:46 <Jayson López - Last Filed: 09/27/16 18:15> - Vital Signs Last Vital Signs Temp Pulse Resp BP Pulse Ox 98.0 F 75 20 136/70 100 09/27/16 15:46 09/27/16 15:46 09/27/16 15:46 09/27/16 15:46 09/27/16 15:46 - Physical Exam Comments: 09/27/16 17:25 GENERAL: Awake, alert, and fully oriented, in no acute distress. Weakness. HEAD: No signs of trauma EYES: PERRLA, EOMI, sclera anicteric, conjunctiva clear ENT: Auricles normal inspection, hearing grossly normal, nares patent, oropharynx clear without exudates. Moist mucosa NECK: Normal ROM, supple, no lymphadenopathy, JVD, or masses LUNGS: Breath sounds equal, clear to auscultation bilaterally. No wheezes, and no crackles HEART: Regular rate and rhythm, normal S1 and S2, no murmurs, rubs or gallops ABDOMEN: Epigastric tenderness, LUQ tenderness, left CVA tenderness. Soft, nontender, normoactive bowel sounds. No guarding, no rebound. No masses EXTREMITIES: Normal range of motion, no edema. No clubbing or cyanosis. No cords, erythema, or tenderness NEUROLOGICAL: Cranial nerves II through XII grossly intact. Normal speech, normal gait SKIN: Warm, Dry, normal turgor, no rashes or lesions noted. <Yadira Latham - Last Filed: 09/27/16 18:44> Heart Score/ECG Review #1 09/27/16 18:18 Normal sinus rhythm at 70 bpm. Minimal voltage criteria for LVH, may be normal variant. <Yadira Latham - Last Filed: 09/27/16 18:44> ED Treatment Course - LABORATORY CBC & Chemistry Diagram: 09/27/16 17:04 09/27/16 17:04 <Jayson López - Last Filed: 09/27/16 18:15> - LABORATORY CBC & Chemistry Diagram: 09/27/16 17:04 09/27/16 17:04 - ADDITIONAL ORDERS Additional order review: 09/27/16 17:04 RBC 3.86 D MCV 98.8 H MCHC 32.1 RDW 16.3 H MPV 9.7 D Neutrophils % Y Lymphocytes % Y - RADIOLOGY Radiograph Interpretation: 09/27/16 18:42 Chest X-Ray Reported by Dr. Dany Calle Impression: No acute disease. Abdomen & Pelvis CT Reported by Dr. Dany Calle Impression: 1. No evidence of urinary tract calculi or obstructive uropathy. 2. Cholelithiasis 3. Air within the urinary bladder possibly iatrogenic in nature. Cystitis cannot be excluded <Yadira Latham Renny - Last Filed: 09/27/16 18:44> *DC/Admit/Observation/Transfer - Discharge Dispostion Admit: Yes - Attestations Physician Attestion: 09/27/16 16:13 I, Dr. Jayson López, attest that this document has been prepared under my direction and personally reviewed by me in its entirety. I further attest, that it accurately reflects all work, treatment, procedures and medical decision -making performed by me. <Jayson López - Last Filed: 09/27/16 18:15> - Attestations Scribe Attestion: 09/27/16 17:26 Documentation prepared by Yadira Latham, acting as medical coder for Jayson López DO. <Yadira Latham - Last Filed: 09/27/16 18:44> Diagnosis at time of Disposition: Hyperkalemia Acute renal failure Qualifiers: Acute renal failure type: unspecified Qualified Code(s): N17.9 - Acute kidney failure, unspecified UTI (urinary tract infection) Qualifiers: Urinary tract infection type: site unspecified Hematuria presence: with hematuria Qualified Code(s): N39.0 - Urinary tract infection, site not specified - Referrals Referrals: Maye Leroy MD [Primary Care Provider] -
[2016-09-27 17:08] LABS: MCH 31.7 pg (25.7-33.7); MCHC 32.1 g/dl (32.0-36.0); MEAN CELL VOLUME 98.8 fl (80-96); MEAN PLT VOLUME 9.7 fl (7.5-11.1); PLATELET COUNT 214 K/MM3 (134-434); RDW 16.3 % (11.6-15.6); WHITE BLOOD COUNT 13.7 K/mm3 (4.0-10.0)
[2016-09-27 17:21] LABS: INR 1.07 (0.82-1.09); PROTHROMBIN TIME (PATIENT) 11.8 SEC (9.98-11.88)
[2016-09-27 17:23] LABS: URINE APPEARANCE CLOUDY; URINE BILIRUBIN NEGATIVE (NEGATIVE); URINE BLOOD 1+ (NEGATIVE); URINE COLOR AMBER; URINE GLUCOSE (UA) NEGATIVE (NEGATIVE); URINE KETONE NEGATIVE (NEGATIVE); URINE NITRITE NEGATIVE (NEGATIVE)
[2016-09-27 17:34] LABS: URINE LEUK ESTERASE 3+ (NEGATIVE); URINE PROTEIN 1+ (NEGATIVE)
[2016-09-27 17:35] LABS: ALBUMIN 3.9 g/dl (3.4-5.0); ANION GAP 7 (8-16); CALCIUM 9.6 mg/dL (8.5-10.1); CO2 22 mmol/L (21-32); CREATININE 3.7 mg/dL (0.55-1.02); GLUCOSE,RANDOM 188 mg/dL (74-106); SGOT/AST 30 U/L (15-37); SGPT/ALT 62 U/L (12-78)
[2016-09-27 17:38] LABS: TROPONIN I < 0.02 ng/ml (0.00-0.05)
[2016-09-27 17:40] LABS: URINE BACTERIA RARE /hpf (NONE SEEN); URINE HYALINE CAST 6 /lpf; URINE MUCUS RARE; URINE RBC 12 /hpf (0-3); URINE WBC 752 /hpf (3-5)
[2016-09-27 17:44] LABS: ALK PHOS 96 U/L (45-117); THYROID STIMULATING HORMONE 0.88 uIU/ml (0.358-3.74)
[2016-09-27] MEDS ORDERED: SODIUM CHLORIDE 1,000 ML IV STA (17:53)
[2016-09-27] MEDS ORDERED: SODIUM CHLORIDE 500 ML IV STA (17:54)
[2016-09-27] MEDS ORDERED: CALCIUM GLUCONATE 10% - 1,000 MG/10 ML VIAL IVPUSH ONE (17:55)
[2016-09-27] MEDS ORDERED: INSULIN REGULAR HUMAN 100 UNITS/ML *VIAL IVPUSH ONE (17:55)
[2016-09-27] MEDS ORDERED: SODIUM BICARBONATE 8.4% 50 MEQ/50 ML VIAL IV ONE (17:56)
[2016-09-27] MEDS ORDERED: DEXTROSE 50%-WATER - 25 GM/50 ML VIAL IVPUSH ONE (17:57)
[2016-09-27] MEDS ORDERED: DEXTROSE 50%-WATER 50 ML DISP.SYRIN ONE (18:07)
[2016-09-27] MEDS ORDERED: CALCIUM GLUCONATE 10% - 1,000 MG/10 ML VIAL ONE (18:07)
[2016-09-27] MEDS ORDERED: SODIUM BICARBONATE 8.4% - 100 ML ONE (18:07)
[2016-09-27] MEDS ORDERED: CEFTRIAXONE 1 GM in DEXTROSE 5%-WATER - 50 ML IVPB ONE (18:14)
[2016-09-27 19:00] LABS: PLATELET ESTIMATE ADEQUATE (NORMAL)
[2016-09-27] MEDS ORDERED: ACETAMINOPHEN 325 MG TABLET (FP) PO ONE (20:39)
[2016-09-27] MEDS ORDERED: ACETAMINOPHEN 325 MG TABLET (FP) ONE (21:09)
[2016-09-27] MEDS ORDERED: ARTIFICIAL TEARS (POLYVINYL ALCOHOL 1.4%) OPTH DROPS OU PRN (21:26)
[2016-09-27] MEDS ORDERED: diphenhydrAMINE HCL 50 MG CAPSULE PO PRN (21:26)
[2016-09-27] MEDS ORDERED: ACETAMINOPHEN 325 MG TABLET (FP) PO PRN (21:33)
[2016-09-27] MEDS ORDERED: ZOLPIDEM TARTRATE 5 MG TABLET PO PRN (22:00)
[2016-09-27] MEDS ORDERED: predniSONE 20 MG TABLET (UD) PO SCH (22:00)
[2016-09-28] MEDS: HEPARIN NA (PORCINE) 5,000 UNITS/ML 1ML VIAL SQ SCH ×3 (02:45→21:04)
[2016-09-28] MEDS ORDERED: diphenhydrAMINE HCL 25 MG CAPSULE (FP) PO ONE (02:51)
[2016-09-28] MEDS: PREGABALIN 75 MG CAPSULE PO SCH ×3 (03:00→21:04)
[2016-09-28] MEDS: SODIUM CHLORIDE 1,000 ML IV SCH ×2 (03:00→09:33)
[2016-09-28 03:24] VITALS: BMI 36.8
[2016-09-28 07:57] LABS: MCH 32.5 pg (25.7-33.7); MCHC 32.4 g/dl (32.0-36.0); MEAN CELL VOLUME 100.1 fl (80-96); MEAN PLT VOLUME 9.1 fl (7.5-11.1); PLATELET COUNT 141 K/MM3 (134-434); RDW 16.4 % (11.6-15.6); WHITE BLOOD COUNT 12.1 K/mm3 (4.0-10.0)
[2016-09-28 08:17] LABS: ALBUMIN 3.2 g/dl (3.4-5.0); ALK PHOS 80 U/L (45-117); ANION GAP 8 (8-16); BILIRUBIN,TOTAL 0.3 mg/dL (0.2-1.0); CALCIUM 8.9 mg/dL (8.5-10.1); CO2 22 mmol/L (21-32); GLUCOSE,RANDOM 91 mg/dL (74-106); MAGNESIUM 2.4 mg/dL (1.8-2.4); SGOT/AST 26 U/L (15-37); SGPT/ALT 51 U/L (12-78); TOT PROT 6.7 g/dl (6.4-8.2)
[2016-09-28] MEDS ORDERED: PT OWN MED DRAWER 7, Y5N ONE (08:40)
[2016-09-28] MEDS ORDERED: CEFTRIAXONE 50 ML IVPB ONE (09:00)
[2016-09-28] MEDS: ATENOLOL 50 MG TABLET (FP) PO SCH (09:21)
[2016-09-28] MEDS: PANTOPRAZOLE 20 MG TABLET (FP) PO SCH (09:21)
--- NOTE | 2016-09-28 09:40 | HP ---
Admitting History and Physical - Primary Care Physician PCP: Maye Leroy - Admission Chief Complaint: weakness History of Present Illness: ER HISTORY - History of Present Illness Initial Comments: 09/27/16 17:22 The patient is a 66 year old female with a significant PMHx of HTN, osteoarthritis, rheumatoid arthritis, ovarian cancer who presents to the ED with weakness in legs and shaky hands. The patient states that her legs feel heavy and she cannot stand for more than 5 minutes at a time. She reports walking differently, stating that her gait is unsteady. She also states that it is hard to get up out of chairs. She reports that she has recently been dropping things because of her hand shaking. She also report epigastric pain. She recently saw her PCP who said her abdomen was distended and her legs were swelling. She states the pain is intermittent, and she presented to the ED in July and was told she has gallstones. She also has an allergic reaction to sulfa 2 months ago. Her face, legs and arms swelled up and she developed a diffuse rash on her body. Since then, she has been on prednisone and cyclosporine. She reports weight gain due to the prednisone. She also states that she has been urinating less frequently, despite being on water pills. She reports she had a colonoscopy over 5 years ago. She denies chest pain, SOB. She denies headache, dizziness. She denies nausea, vomiting, diarrhea. Pt examined by me in the floors She had come to the office yesterday for generalized weakness,leg pain, abdominal pain and unsteady gait. Sent to ER for the same. She was admitted here for severe sulpha allergy . She was placed on Cyclosporine recently by the [employer] and also Prednsione taper which helped her rash . Resulted in lower extremities edema , started on diuretics. She had blood work done about 2 weeks ago and creatinine was 1.4 , now in ER found to have creatinine 3.7 and hyperkalemia. Now receiving iv fluids, s/p Kayexalate , calcium gluconate . Still feels weak, does not have much appetite but feels very thirsty. History Source: Patient Limitations to Obtaining History: No Limitations - Past Medical History Cardiovascular: Yes: HTN Gastrointestinal: Yes: GERD Hepatobiliary: Yes: Hepatitis C Heme/Onc: Yes: Anemia, Other (OVARIAN CNACER) Musculoskeletal: Yes: Other (Chronic low back pain. Spinal stenosis) Rheumatology: Yes: Rheumatoid Arthritis - Past Surgical History Past Surgical History: Yes: Colonoscopy, Hysterectomy, Upper Endoscopy - Smoking History Smoking history: Former smoker Have you smoked in the past 12 months: No If you are a former smoker, when did you quit?: 1994 - Alcohol/Substance Use Hx Alcohol Use: No Home Medications - Allergies Allergies/Adverse Reactions: Allergies Allergy/AdvReac Type Severity Reaction Status Date / Time sulfasalazine AdvReac Severe Rash Verified 09/27/16 16:23 latex AdvReac Mild Itching Verified 09/27/16 16:23 - Home Medications Home Medications: Ambulatory Orders Atenolol [Tenormin -] 50 mg PO DAILY 05/07/11 Losartan Potassium [Cozaar -] 50 mg PO ASDIR 07/10/16 Meloxicam [Mobic] 15 mg PO DAILY 07/10/16 Ondansetron [Zofran -] 4 mg PO TID 07/10/16 Pregabalin [Lyrica -] 75 mg PO BID 07/10/16 Tramadol HCl [Ultram -] 150 mg PO BID 07/10/16 Zolpidem Tartrate [Ambien] 10 mg PO HS 07/10/16 Diphenhydramine [Benadryl Capsule -] 50 mg PO TID #60 tab 07/21/16 Nystatin Powder [Nystop Powder -] 1 applic TP DAILY #1 applic 07/21/16 Pantoprazole Sodium [Protonix -] 20 mg PO DAILY #30 tab 07/21/16 Polyvinyl Alcohol [Artificial Tears] 1 drop OU QID PRN #1 drop 07/21/16 Triamcinolone Acetonide 1 applic TP BID #1 tube 07/21/16 Cyclosporine [Sandimmune] 100 mg PO DAILY 09/27/16 Prednisone [Deltasone -] 10 mg PO BID 09/27/16 Review of Systems - Review of Systems Constitutional: reports: Loss of Appetite, Weakness. denies: Chills, Fever HENT: reports: Other (mouth sores) Gastrointestinal: reports: Abdominal Pain Genitourinary: reports: Dysuria, Frequency Physical Examination Vital Signs: Vital Signs Temperature 97.8 F 09/28/16 07:40 Pulse Rate 79 09/28/16 07:40 Respiratory Rate 20 09/28/16 07:43 Blood Pressure 119/65 09/28/16 07:40 O2 Sat by Pulse Oximetry (%) 99 09/28/16 07:43 Constitutional: Yes: No Distress, Calm HENT: Yes: Other (stomatitis) Cardiovascular: Yes: Regular Rate and Rhythm Respiratory: Yes: CTA Bilaterally Gastrointestinal: Yes: Normal Bowel Sounds, Soft. No: Distention, Tenderness Edema: No Neurological: Yes: Alert, Oriented Labs: CBC, BMP 09/28/16 05:35 09/28/16 05:35 Imaging - Results Chest X-ray: Image Reviewed (no infiltrate) Cat Scan: Report Reviewed EKG: Report Reviewed (Sinus) Problem List - Problems (1) Acute renal failure Code(s): N17.9 - ACUTE KIDNEY FAILURE, UNSPECIFIED Qualifiers: Acute renal failure type: unspecified Qualified Code(s): N17.9 - Acute kidney failure, unspecified (2) Hyperkalemia Code(s): E87.5 - HYPERKALEMIA (3) UTI (urinary tract infection) Code(s): N39.0 - URINARY TRACT INFECTION, SITE NOT SPECIFIED Qualifiers: Urinary tract infection type: site unspecified Hematuria presence: with hematuria Qualified Code(s): N39.0 - Urinary tract infection, site not specified (4) Weakness Code(s): R53.1 - WEAKNESS Assessment/Plan PLAN On IV Fluids Creatinine and potassium improving IV antibiotics for UTI Renal and Dermatology eval continue with meds OOB DVT prophylaxis -- Heparin sc test results, investigative reports discussed with pt
[2016-09-28] MEDS ORDERED: SODIUM POLYSTYRENE SULFONATE 15 GM/60 ML BOTTLE PO ONE ×2 (10:15→18:15)
[2016-09-28] MEDS ORDERED: SODIUM CHLORIDE 0.45% 1,000 ML IV SCH ×2 (10:30→18:51)
[2016-09-28 11:32] LABS: METAMYELOCYTE 1 % (0-2)
[2016-09-28 11:33] LABS: PLATELET ESTIMATE ADEQUATE (NORMAL)
[2016-09-28] MEDS: NYSTATIN POWDER 100,000 UNITS/GM - 15 GM TOPICAL POWDER TP SCH (13:28)
[2016-09-28] MEDS: TRIAMCINOLONE ACET 0.1% CREAM 80 GM TUBE TP SCH ×2 (13:28→21:06)
[2016-09-28] MEDS ORDERED: SODIUM POLYSTYRENE SULFONATE 15 GM/60 ML BOTTLE ONE (13:35)
[2016-09-28] MEDS: traMADol HCL 50 MG TABLET PO PRN (13:39)
--- NOTE | 2016-09-28 15:14 | CONSULT ---
Consult Consult Specialty:: Nephrology Reason for Consultation:: MARINA and hyperkalemia - History of Present Illness Chief Complaint: weakness History of Present Illness: Pt is a 66 year old female with pmhx of HTN, RA, ovarian cancer, and back pain who presents to the ER with weakness. She says that she is unable to stand for more than a few minutes. She says she developed an allergy to Sulfa a few months ago and developed a rash. She has been on several agents and the rash has improved. I was called to evaluate her for MARINA and for hyperkalemia. She was on losartan, meloxicam and cyclosporine, along with steroids. She denies chest pain or palpitations. Her creatinine and potassium are both improving with hydration. She denies history of kidney disease. She denies hematuria or dysuria. She denies flank pain. - History Source History Provided By: Patient, Medical Record - Past Medical History Cardio/Vascular: Yes: HTN Gastrointestinal: Yes: GERD Hepatobiliary: Yes: Hepatitis C Musculoskeletal: Yes: Other (Chronic low back pain. Spinal stenosis) Rheumatology: Yes: Rheumatoid Arthritis - Past Surgical History Past Surgical History: Yes: Colonoscopy, Hysterectomy, Upper Endoscopy - Alcohol/Substance Use Hx Alcohol Use: No - Smoking History Smoking history: Former smoker Have you smoked in the past 12 months: No If you are a former smoker, when did you quit?: 1994 Home Medications - Allergies Allergies/Adverse Reactions: Allergies Allergy/AdvReac Type Severity Reaction Status Date / Time sulfasalazine AdvReac Severe Rash Verified 09/27/16 16:23 latex AdvReac Mild Itching Verified 09/27/16 16:23 - Home Medications Home Medications: Ambulatory Orders Atenolol [Tenormin -] 50 mg PO DAILY 05/07/11 Losartan Potassium [Cozaar -] 50 mg PO ASDIR 07/10/16 Meloxicam [Mobic] 15 mg PO DAILY 07/10/16 Ondansetron [Zofran -] 4 mg PO TID 07/10/16 Pregabalin [Lyrica -] 75 mg PO BID 07/10/16 Tramadol HCl [Ultram -] 150 mg PO BID 07/10/16 Zolpidem Tartrate [Ambien] 10 mg PO HS 07/10/16 Diphenhydramine [Benadryl Capsule -] 50 mg PO TID #60 tab 07/21/16 Nystatin Powder [Nystop Powder -] 1 applic TP DAILY #1 applic 07/21/16 Pantoprazole Sodium [Protonix -] 20 mg PO DAILY #30 tab 07/21/16 Polyvinyl Alcohol [Artificial Tears] 1 drop OU QID PRN #1 drop 07/21/16 Triamcinolone Acetonide 1 applic TP BID #1 tube 07/21/16 Cyclosporine [Sandimmune] 100 mg PO DAILY 09/27/16 Prednisone [Deltasone -] 10 mg PO BID 09/27/16 Family Disease History - Family Disease History Family History: Denies Review of Systems - Review of Systems Constitutional: reports: Malaise Eyes: reports: No Symptoms HENT: reports: No Symptoms Neck: reports: No Symptoms Cardiovascular: reports: No Symptoms Respiratory: reports: No Symptoms Gastrointestinal: reports: No Symptoms Genitourinary: reports: No Symptoms Musculoskeletal: reports: Muscle Weakness Integumentary: reports: Rash Neurological: reports: No Symptoms Endocrine: reports: No Symptoms Psychiatric: reports: No Symptoms Physical Exam Vital Signs: Vital Signs Temperature 98.0 F 09/28/16 14:32 Pulse Rate 84 09/28/16 14:32 Respiratory Rate 18 09/28/16 14:32 Blood Pressure 102/57 09/28/16 14:32 O2 Sat by Pulse Oximetry (%) 99 09/28/16 07:43 Constitutional: Yes: Calm Eyes: Yes: Conjunctiva Clear HENT: Yes: Atraumatic Cardiovascular: Yes: S1, S2 Respiratory: Yes: CTA Bilaterally Gastrointestinal: Yes: Soft, Abdomen, Obese Renal/: Yes: WNL Musculoskeletal: Yes: Muscle Weakness Edema: Yes Edema: LLE: Trace, RLE: Trace Neurological: Yes: Oriented Psychiatric: Yes: Oriented Labs: CBC, BMP 09/28/16 05:35 09/28/16 05:35 Laboratory Tests 09/27/16 09/27/16 09/27/16 17:04 17:04 17:12 WBC 13.7 H Hgb 12.2 D Sodium 135 L Potassium 6.5 H* D Chloride 106 Carbon Dioxide 22 D Anion Gap 7 L BUN 62 H D Creatinine 3.7 H D Urine Color [place] Urine Appearance Cloudy Urine pH 5.0 Ur Specific [place] 1.020 Urine Glucose (UA) Negative Urine Ketones Negative Urine Blood 1+ H Urine Nitrite Negative Urine Bilirubin Negative 09/28/16 09/28/16 05:35 05:35 WBC 12.1 H Hgb 10.6 L D Sodium 138 Potassium 5.7 H Chloride 108 H Carbon Dioxide 22 Anion Gap 8 BUN 62 H Creatinine 3.0 H Urine Color Urine Appearance Urine pH Ur Specific [place] Urine Glucose (UA) Urine Ketones Urine Blood Urine Nitrite Urine Bilirubin Imaging - Results Chest X-ray: Report Reviewed Problem List - Problems (1) Acute renal failure Code(s): N17.9 - ACUTE KIDNEY FAILURE, UNSPECIFIED Qualifiers: Acute renal failure type: unspecified Qualified Code(s): N17.9 - Acute kidney failure, unspecified (2) Hyperkalemia Code(s): E87.5 - HYPERKALEMIA Assessment/Plan Current Medications Generic Name Dose Route Start Last Admin Trade Name Freq PRN Reason Stop Dose Admin Acetaminophen 650 mg 09/27/16 21:33 Tylenol - PO Q6H PRN FEVER OR PAIN Artificial Tears 1 drop 09/27/16 21:26 Artificial Tears OU QID PRN DRY EYES Atenolol 50 mg 09/28/16 10:00 09/28/16 09:21 Tenormin - PO 50 mg DAILY [place] Administration Diphenhydramine HCl 25 mg 09/27/16 21:26 09/28/16 02:55 Benadryl - PO 25 mg TID PRN Administration FOR ITCHING Heparin Sodium (Porcine) 5,000 unit 09/27/16 22:00 09/28/16 09:21 Heparin - SQ 5,000 unit BID [place] Administration Ceftriaxone Sodium 50 mls @ 100 mls/hr 09/29/16 10:00 Rocephin 1gm Ivpb (Pre-Docked) IVPB DAILY [place] Sodium Chloride 1,000 mls @ 100 mls/hr 09/28/16 10:30 09/28/16 13:41 1/2 Normal Saline IV 100 mls/hr ASDIR [place] Administration Nystatin 1 applic 09/28/16 10:00 09/28/16 13:28 Nystop Powder - TP Not Given DAILY [place] Pantoprazole Sodium 20 mg 09/28/16 10:00 09/28/16 09:21 Protonix - PO 20 mg DAILY [place] Administration Prednisone 10 mg 09/29/16 10:00 Deltasone - PO DAILY [place] Pregabalin 75 mg 09/27/16 22:00 09/28/16 09:21 Lyrica - PO 75 mg BID [place] Administration Tramadol HCl 100 mg 09/28/16 10:17 09/28/16 13:39 Ultram - PO 100 mg Q8H PRN Administration PAIN Triamcinolone Acetonide 1 applic 09/27/16 22:00 09/28/16 13:28 Triamcinolone Acetonide TP Not Given BID [place] Zolpidem Tartrate 10 mg 09/28/16 10:19 Ambien - PO HS PRN INSOMNIA Laboratory Tests 07/12/16 07/12/16 06:38 06:38 Hep Bs Antigen Negative Hep Bs Antibody Reactive Hep B Core Total Ab Positive H Hep B Core IgM Ab Positive H Hepatitis C Ab (EIA) >11.0 H Impression 1. MARINA 2. hyperkalemia 3. rheumatoid arthritis 4. recent rash from drug allergy 5. hep C 6. pos heb b core 7. UTI Plan - creatinine is improving - potassium is improving - recommend holding losartan and meloxicam - pt was also on cyclosporine, will check level - recommend dermatology evaluation - follow urine cultures - will follow - cont with fluids Dr Abdul
[2016-09-28 17:28] LABS: ANION GAP 8 (8-16); CALCIUM 8.6 mg/dL (8.5-10.1); CO2 22 mmol/L (21-32); CREATININE 2.3 mg/dL (0.55-1.02); GLUCOSE,RANDOM 170 mg/dL (74-106)
--- NOTE | 2016-09-28 18:49 | PN ---
Progress Note (short form) - Note Progress Note: Laboratory Tests 09/28/16 15:45 Sodium 139 Potassium 6.1 H* Chloride 109 H Carbon Dioxide 22 Anion Gap 8 BUN 51 H Creatinine 2.3 H D - will treat potassium - renal function improving Problem List - Problems (1) Acute renal failure Code(s): N17.9 - ACUTE KIDNEY FAILURE, UNSPECIFIED Qualifiers: Acute renal failure type: unspecified Qualified Code(s): N17.9 - Acute kidney failure, unspecified (2) Hyperkalemia Code(s): E87.5 - HYPERKALEMIA
[2016-09-28] MEDS ORDERED: SODIUM BICARBONATE 8.4% 50 MEQ/50 ML VIAL IVPB ONE (18:50)
[2016-09-28 20:25] LABS: URINE APPEARANCE CLEAR; URINE BILIRUBIN NEGATIVE (NEGATIVE); URINE BLOOD NEGATIVE (NEGATIVE); URINE COLOR STRAW; URINE GLUCOSE (UA) 2+ (NEGATIVE); URINE KETONE NEGATIVE (NEGATIVE); URINE LEUK ESTERASE NEGATIVE (NEGATIVE); URINE NITRITE NEGATIVE (NEGATIVE); URINE PROTEIN NEGATIVE (NEGATIVE); URINE UROBILINOGEN NEGATIVE mg/dL (0.2-1.0)
--- NOTE | 2016-09-28 20:42 | EKG ---
Test Reason : Blood Pressure : / mmHG Vent. Rate : 070 BPM Atrial Rate : 070 BPM P-R Int : 142 ms QRS Dur : 082 ms QT Int : 352 ms P-R-T Axes : 049 -22 044 degrees QTc Int : 380 ms NORMAL SINUS RHYTHM MINIMAL VOLTAGE CRITERIA FOR LVH, MAY BE NORMAL VARIANT BORDERLINE ECG WHEN COMPARED WITH ECG OF 10-JUL-2016 14:45, MINIMAL CRITERIA FOR SEPTAL INFARCT ARE NO LONGER PRESENT NONSPECIFIC T WAVE ABNORMALITY NO LONGER EVIDENT IN ANTERIOR LEADS Confirmed by GUNNER KONG MD ([id number]) on 09/28/2016 8:42:29 PM Referred By: Confirmed By:GUNNER KONG MD
[2016-09-28] MEDS ORDERED: BENZOCAINE 20 % GEL 9 GM TUBE MM PRN (20:59)
[2016-09-28 22:54] LABS: URINE CREATININE 44.3 mg/dL (20-320)
[2016-09-28] MEDS: ZOLPIDEM TARTRATE 5 MG TABLET PO PRN (22:55)
[2016-09-29] MEDS ORDERED: diphenhydrAMINE HCL 25 MG CAPSULE (FP) PO PRN (01:07)
[2016-09-29 08:21] LABS: MCH 33.4 pg (25.7-33.7); MCHC 33.5 g/dl (32.0-36.0); MEAN CELL VOLUME 99.7 fl (80-96); MEAN PLT VOLUME 9.1 fl (7.5-11.1); PLATELET COUNT 114 K/MM3 (134-434); RDW 15.9 % (11.6-15.6); WHITE BLOOD COUNT 8.6 K/mm3 (4.0-10.0)
[2016-09-29 08:59] LABS: ALBUMIN 2.9 g/dl (3.4-5.0); ANION GAP 10 (8-16); CALCIUM 7.9 mg/dL (8.5-10.1); CO2 24 mmol/L (21-32); CREATININE 1.5 mg/dL (0.55-1.02); GLUCOSE,RANDOM 67 mg/dL (74-106); SGOT/AST 43 U/L (15-37); SGPT/ALT 63 U/L (12-78)
[2016-09-29 09:00] LABS: ALK PHOS 73 U/L (45-117); BILIRUBIN,TOTAL 0.6 mg/dL (0.2-1.0); TOT PROT 6.2 g/dl (6.4-8.2)
[2016-09-29] MEDS: HEPARIN NA (PORCINE) 5,000 UNITS/ML 1ML VIAL SQ SCH ×2 (09:38→21:17)
[2016-09-29] MEDS: traMADol HCL 50 MG TABLET PO PRN ×2 (09:38→21:17)
[2016-09-29] MEDS: PANTOPRAZOLE 20 MG TABLET (FP) PO SCH (09:38)
[2016-09-29] MEDS: ATENOLOL 50 MG TABLET (FP) PO SCH (09:38)
[2016-09-29] MEDS: PREGABALIN 75 MG CAPSULE PO SCH ×2 (09:38→21:17)
--- NOTE | 2016-09-29 09:39 | PN ---
Progress Note, Physician Chief Complaint: Pt has headaches , she did not sleep well last night Night nurse was trying multiple times to get an iv line and also novelty candy maker tried to get blood multiplr e times Tele-- tachycardia-- likely due to multiple phlebotomy attempts - Current Medication List Current Medications: Active Medications Acetaminophen (Tylenol -) 650 mg PO Q6H PRN PRN Reason: FEVER OR PAIN Last Admin: 09/29/16 00:59 Dose: 650 mg Artificial Tears (Artificial Tears) 1 drop OU QID PRN PRN Reason: DRY EYES Atenolol (Tenormin -) 50 mg PO DAILY [facility] Last Admin: 09/28/16 09:21 Dose: 50 mg Benzocaine (Anbesol -) 1 applic MM Q2H PRN PRN Reason: MILD PAIN Diphenhydramine HCl (Benadryl -) 25 mg PO TID PRN PRN Reason: FOR ITCHING Heparin Sodium (Porcine) (Heparin -) 5,000 unit SQ BID [facility] Last Admin: 09/28/16 21:04 Dose: 5,000 unit Ceftriaxone Sodium (Rocephin 1gm Ivpb (Pre-Docked)) 50 mls @ 100 mls/hr IVPB DAILY [facility] Sodium Chloride (1/2 Normal Saline) 1,000 mls @ 125 mls/hr IV ASDIR [facility] Last Admin: 09/28/16 20:42 Dose: 125 mls/hr Nystatin (Nystop Powder -) 1 applic TP DAILY [facility] Last Admin: 09/28/16 13:28 Dose: Not Given Pantoprazole Sodium (Protonix -) 20 mg PO DAILY [facility] Last Admin: 09/28/16 09:21 Dose: 20 mg Prednisone (Deltasone -) 10 mg PO DAILY [facility] Pregabalin (Lyrica -) 75 mg PO BID [facility] Last Admin: 09/28/16 21:04 Dose: 75 mg Tramadol HCl (Ultram -) 100 mg PO Q8H PRN PRN Reason: PAIN Last Admin: 09/28/16 13:39 Dose: 100 mg Triamcinolone Acetonide (Triamcinolone Acetonide) 1 applic TP BID [facility] Last Admin: 09/28/16 21:06 Dose: 1 applic Zolpidem Tartrate (Ambien -) 10 mg PO HS PRN PRN Reason: INSOMNIA Last Admin: 09/28/16 22:55 Dose: 10 mg - Objective Vital Signs: Vital Signs Temperature 98.8 F 09/29/16 07:19 Pulse Rate 82 09/29/16 07:19 Respiratory Rate 20 09/29/16 07:23 Blood Pressure 111/53 09/29/16 07:19 O2 Sat by Pulse Oximetry (%) 99 09/29/16 07:23 Constitutional: Yes: No Distress, Calm Neck: Yes: Other (supraclavicular fat pad + B/L -- left > right) Cardiovascular: Yes: Regular Rate and Rhythm Respiratory: Yes: CTA Bilaterally Gastrointestinal: Yes: Normal Bowel Sounds, Soft. No: Distention, Tenderness Edema: No Labs: CBC, BMP 09/29/16 05:40 09/29/16 05:40 INR, PTT INR 1.07 (0.82-1.09) 09/27/16 17:04 Problem List - Problems (1) Acute renal failure Code(s): N17.9 - ACUTE KIDNEY FAILURE, UNSPECIFIED Qualifiers: Acute renal failure type: unspecified Qualified Code(s): N17.9 - Acute kidney failure, unspecified (2) Hyperkalemia Code(s): E87.5 - HYPERKALEMIA (3) UTI (urinary tract infection) Code(s): N39.0 - URINARY TRACT INFECTION, SITE NOT SPECIFIED Qualifiers: Urinary tract infection type: site unspecified Hematuria presence: with hematuria Qualified Code(s): N39.0 - Urinary tract infection, site not specified (4) Weakness Code(s): R53.1 - WEAKNESS Assessment/Plan PLAN On IV Fluids-- decrease rate Creatinine and potassium improving IV antibiotics for UTI Renal eval noted, and Dermatology eval pending continue with meds OOB DVT prophylaxis -- Heparin sc test results, investigative reports discussed with pt xray neck pending PT eval, VNA possible dc in AM
[2016-09-29] MEDS: TRIAMCINOLONE ACET 0.1% CREAM 80 GM TUBE TP SCH ×2 (09:41→21:23)
[2016-09-29] MEDS: NYSTATIN POWDER 100,000 UNITS/GM - 15 GM TOPICAL POWDER TP SCH (09:47)
[2016-09-29] MEDS ORDERED: CEFTRIAXONE 50 ML IVPB SCH (10:00)
[2016-09-29] MEDS ORDERED: predniSONE 10 MG TABLET (UD) PO SCH (10:00)
[2016-09-29] MEDS ORDERED: SODIUM CHLORIDE 0.45% 1,000 ML IV SCH (10:08)
[2016-09-29 10:37] LABS: PLATELET ESTIMATE DECREASED (NORMAL)
--- NOTE | 2016-09-29 12:32 | PN ---
Progress Note, Physician History of Present Illness: Pt seen and examined at bedside. She is awake and alert. She denies shortness of breath. - Current Medication List Current Medications: Active Medications Acetaminophen (Tylenol -) 650 mg PO Q6H PRN PRN Reason: FEVER OR PAIN Last Admin: 09/29/16 00:59 Dose: 650 mg Artificial Tears (Artificial Tears) 1 drop OU QID PRN PRN Reason: DRY EYES Atenolol (Tenormin -) 50 mg PO DAILY [facility] Last Admin: 09/29/16 09:38 Dose: 50 mg Benzocaine (Anbesol -) 1 applic MM Q2H PRN PRN Reason: MILD PAIN Last Admin: 09/29/16 09:46 Dose: 1 applic Diphenhydramine HCl (Benadryl -) 25 mg PO TID PRN PRN Reason: FOR ITCHING Heparin Sodium (Porcine) (Heparin -) 5,000 unit SQ BID [facility] Last Admin: 09/29/16 09:38 Dose: 5,000 unit Ceftriaxone Sodium (Rocephin 1gm Ivpb (Pre-Docked)) 50 mls @ 100 mls/hr IVPB DAILY [facility] Last Admin: 09/29/16 09:37 Dose: 100 mls/hr Sodium Chloride (1/2 Normal Saline) 1,000 mls @ 100 mls/hr IV ASDIR [facility] Nystatin (Nystop Powder -) 1 applic TP DAILY [facility] Last Admin: 09/29/16 09:47 Dose: Not Given Pantoprazole Sodium (Protonix -) 20 mg PO DAILY [facility] Last Admin: 09/29/16 09:38 Dose: 20 mg Prednisone (Deltasone -) 10 mg PO DAILY [facility] Last Admin: 09/29/16 09:38 Dose: 10 mg Pregabalin (Lyrica -) 75 mg PO BID [facility] Last Admin: 09/29/16 09:38 Dose: 75 mg Tramadol HCl (Ultram -) 100 mg PO Q8H PRN PRN Reason: PAIN Last Admin: 09/29/16 09:38 Dose: 100 mg Triamcinolone Acetonide (Triamcinolone Acetonide) 1 applic TP BID [facility] Last Admin: 09/29/16 09:41 Dose: 1 applic Zolpidem Tartrate (Ambien -) 10 mg PO HS PRN PRN Reason: INSOMNIA Last Admin: 09/28/16 22:55 Dose: 10 mg - Objective Vital Signs: Vital Signs Temperature 98.8 F 09/29/16 07:19 Pulse Rate 82 09/29/16 07:19 Respiratory Rate 20 09/29/16 07:23 Blood Pressure 111/53 09/29/16 07:19 O2 Sat by Pulse Oximetry (%) 99 09/29/16 07:23 Constitutional: Yes: Calm Eyes: Yes: Conjunctiva Clear HENT: Yes: Atraumatic Neck: Yes: Supple Cardiovascular: Yes: S1, S2 Respiratory: Yes: CTA Bilaterally Gastrointestinal: Yes: Normal Bowel Sounds, Soft Genitourinary: Yes: WNL Musculoskeletal: Yes: WNL Edema: Yes Edema: LLE: Trace, RLE: Trace Neurological: Yes: Oriented Psychiatric: Yes: Oriented Labs: CBC, BMP 09/29/16 05:40 09/29/16 05:40 INR, PTT INR 1.07 (0.82-1.09) 09/27/16 17:04 Problem List - Problems (1) Acute renal failure Code(s): N17.9 - ACUTE KIDNEY FAILURE, UNSPECIFIED Qualifiers: Acute renal failure type: unspecified Qualified Code(s): N17.9 - Acute kidney failure, unspecified (2) Hyperkalemia Code(s): E87.5 - HYPERKALEMIA Assessment/Plan Current Medications Generic Name Dose Route Start Last Admin Trade Name Freq PRN Reason Stop Dose Admin Acetaminophen 650 mg 09/27/16 21:33 09/29/16 00:59 Tylenol - PO 650 mg Q6H PRN Administration FEVER OR PAIN Artificial Tears 1 drop 09/27/16 21:26 Artificial Tears OU QID PRN DRY EYES Atenolol 50 mg 09/28/16 10:00 09/29/16 09:38 Tenormin - PO 50 mg DAILY [facility] Administration Benzocaine 1 applic 09/28/16 20:59 09/29/16 09:46 Anbesol - MM 1 applic Q2H PRN Administration MILD PAIN Diphenhydramine HCl 25 mg 09/29/16 01:07 Benadryl - PO TID PRN FOR ITCHING Heparin Sodium (Porcine) 5,000 unit 09/27/16 22:00 09/29/16 09:38 Heparin - SQ 5,000 unit BID [facility] Administration Ceftriaxone Sodium 50 mls @ 100 mls/hr 09/29/16 10:00 09/29/16 09:37 Rocephin 1gm Ivpb (Pre-Docked) IVPB 100 mls/hr DAILY [facility] Administration Sodium Chloride 1,000 mls @ 100 mls/hr 09/29/16 10:08 1/2 Normal Saline IV ASDIR [facility] Nystatin 1 applic 09/28/16 10:00 09/29/16 09:47 Nystop Powder - TP Not Given DAILY [facility] Pantoprazole Sodium 20 mg 09/28/16 10:00 09/29/16 09:38 Protonix - PO 20 mg DAILY [facility] Administration Prednisone 10 mg 09/29/16 10:00 09/29/16 09:38 Deltasone - PO 10 mg DAILY [facility] Administration Pregabalin 75 mg 09/27/16 22:00 09/29/16 09:38 Lyrica - PO 75 mg BID [facility] Administration Tramadol HCl 100 mg 09/28/16 10:17 09/29/16 09:38 Ultram - PO 100 mg Q8H PRN Administration PAIN Triamcinolone Acetonide 1 applic 09/27/16 22:00 09/29/16 09:41 Triamcinolone Acetonide TP 1 applic BID [facility] Administration Zolpidem Tartrate 10 mg 09/28/16 10:19 09/28/16 22:55 Ambien - PO 10 mg HS PRN Administration INSOMNIA Laboratory Tests 09/28/16 15:45 Cyclosporine Trough Pending Impression 1. MARINA 2. hyperkalemia 3. rheumatoid arthritis 4. recent rash from drug allergy 5. hep C 6. pos heb b core 7. UTI Plan - potassium is improved today - cont with fluids - renal function is improving - low potassium diet - MARINA and hyperkalemia likely secondary to meds - will follow - recommend dermatology evaluation - follow urine cultures - will follow - cont with fluids Dr Abdul
[2016-09-29] MEDS: ZOLPIDEM TARTRATE 5 MG TABLET PO PRN (21:17)
[2016-09-30] MEDS ORDERED: traMADol HCL 50 MG TABLET PO PRN (05:05)
[2016-09-30] MEDS ORDERED: ZOLPIDEM TARTRATE 5 MG TABLET PO PRN (05:05)
[2016-09-30] MEDS ORDERED: ARTIFICIAL TEARS (POLYVINYL ALCOHOL 1.4%) OPTH DROPS OU PRN (05:05)
[2016-09-30] MEDS ORDERED: ACETAMINOPHEN 325 MG TABLET (FP) PO PRN (05:05)
[2016-09-30] MEDS ORDERED: BENZOCAINE 20 % GEL 9 GM TUBE MM PRN (05:05)
[2016-09-30] MEDS ORDERED: diphenhydrAMINE HCL 25 MG CAPSULE (FP) PO PRN (05:05)
[2016-09-30] MEDS ORDERED: SODIUM CHLORIDE 0.45% 1,000 ML IV SCH (05:05)
[2016-09-30 08:14] LABS: MCHC 33.1 g/dl (32.0-36.0); MEAN CELL VOLUME 99.5 fl (80-96); PLATELET COUNT 130 K/MM3 (134-434); WHITE BLOOD COUNT 9.3 K/mm3 (4.0-10.0)
[2016-09-30 09:16] LABS: ANION GAP 11 (8-16); CALCIUM 8.5 mg/dL (8.5-10.1); CO2 26 mmol/L (21-32); CREATININE 1.5 mg/dL (0.55-1.02); GLUCOSE,RANDOM 114 mg/dL (74-106)
[2016-09-30] MEDS ORDERED: CEFTRIAXONE 50 ML IVPB SCH (10:00)
[2016-09-30] MEDS ORDERED: PREGABALIN 75 MG CAPSULE PO SCH (10:00)
[2016-09-30] MEDS ORDERED: TRIAMCINOLONE ACET 0.1% CREAM 80 GM TUBE TP SCH (10:00)
[2016-09-30] MEDS ORDERED: ATENOLOL 50 MG TABLET (FP) PO SCH (10:00)
[2016-09-30] MEDS ORDERED: predniSONE 10 MG TABLET (UD) PO SCH (10:00)
[2016-09-30] MEDS ORDERED: NYSTATIN POWDER 100,000 UNITS/GM - 15 GM TOPICAL POWDER TP SCH (10:00)
[2016-09-30] MEDS ORDERED: HEPARIN NA (PORCINE) 5,000 UNITS/ML 1ML VIAL SQ SCH (10:00)
[2016-09-30] MEDS ORDERED: PANTOPRAZOLE 20 MG TABLET (FP) PO SCH (10:00)
--- NOTE | 2016-09-30 10:19 | DS ---
Physical Examination Vital Signs: Vital Signs Temperature 98.2 F 09/30/16 02:31 Pulse Rate 99 H 09/30/16 02:31 Respiratory Rate 20 09/30/16 02:31 Blood Pressure 103/56 09/30/16 02:31 O2 Sat by Pulse Oximetry (%) 97 09/29/16 21:00 Constitutional: Yes: No Distress, Calm Cardiovascular: Yes: Regular Rate and Rhythm Respiratory: Yes: CTA Bilaterally Gastrointestinal: Yes: Normal Bowel Sounds, Soft, Abdomen, Obese. No: Distention, Tenderness Edema: No Labs: CBC, BMP 09/30/16 06:00 09/30/16 06:00 Discharge Summary Reason For Visit: HYPERKALEMIA; ARF Current Active Problems Acute renal failure (Acute) Hyperkalemia (Acute) UTI (urinary tract infection) (Acute) Hospital Course: Pt examined by me in the floors She had come to the office yesterday for generalized weakness,leg pain, abdominal pain and unsteady gait. Sent to ER for the same. She was admitted here for severe sulpha allergy . She was placed on Cyclosporine recently by the Prn Physical Therapist and also Prednsione taper which helped her rash . Resulted in lower extremities edema , started on diuretics. She had blood work done about 2 weeks ago and creatinine was 1.4 , now in ER found to have creatinine 3.7 and hyperkalemia. Now receiving iv fluids, s/p Kayexalate , calcium gluconate . Still feels weak, does not have much appetite but feels very thirsty. HOSPITALIZATION COURSE Seen by Nephrology , started iv fluids, potassium normal and creatinine is stable at 1.5 for last two days. Pt has neuropathy-- on Lyrica Renal and bladder sono- normal Xray soft tissues of neck-- no erosions to bone. Pt has h/o ovarian CA and will be following up with her oncologist at [facility] Pt also found to have UTI -- on iv antibiotics-- change to PO and complete 4 more days of antibiotics encourage PO fluids dc Cyclosporine, Losartan and diuretics No need for diuretics for now d/w Renal -- may follow up in office Contacted DR Cabrera-- Dermatology-- she will be on vacation next week. Pt will be on Prednisone 10mg daily and triamcinolone cream. DC Cyclosporine. Pt will need to follow up with her in 2 weeks-- the office will give her a call. Pt will need VNS at home, PT Stable for dc home time spent for discharge preparation-- 30 min Condition: Improved - Instructions Diet, Activity, Other Instructions: VNS, continue with Ceftin-- complete 4 more days of antibiotics Drink water ! physical therapy and muscle strengthening Referrals: Maye Leroy MD [Primary Care Provider] - Salma Abdul MD [Staff Physician] - 1 Week Bere Cabrera [Staff Physician] - 2 Weeks Disposition: HOME - Home Medications Comprehensive Discharge Medication List: Ambulatory Orders Atenolol [Tenormin -] 50 mg PO DAILY 05/07/11 Ondansetron [Zofran -] 4 mg PO TID 07/10/16 Pregabalin [Lyrica -] 75 mg PO BID 07/10/16 Tramadol HCl [Ultram -] 150 mg PO BID 07/10/16 Zolpidem Tartrate [Ambien] 10 mg PO HS 07/10/16 Diphenhydramine [Benadryl Capsule -] 50 mg PO TID #60 tab 07/21/16 Nystatin Powder [Nystop Powder -] 1 applic TP DAILY #1 applic 07/21/16 Pantoprazole Sodium [Protonix -] 20 mg PO DAILY #30 tab 07/21/16 Polyvinyl Alcohol [Artificial Tears] 1 drop OU QID PRN #1 drop 07/21/16 Triamcinolone Acetonide 1 applic TP BID #1 tube 07/21/16 Cefuroxime Axetil [Ceftin -] 500 mg PO Q12H #8 tablet 09/30/16 Prednisone [Deltasone -] 10 mg PO DAILY #0 tab 09/30/16
[2016-09-30] MEDS: TRIAMCINOLONE ACET 0.1% CREAM 80 GM TUBE TP SCH (12:02)
--- NOTE | 2016-09-30 13:08 | PN ---
Progress Note, Physician History of Present Illness: Pt seen and examined at bedside. She is awake and alert. She feels well and has no complaints. - Current Medication List Current Medications: Active Medications Acetaminophen (Tylenol -) 650 mg PO Q6H PRN PRN Reason: FEVER OR PAIN Artificial Tears (Artificial Tears) 1 drop OU QID PRN PRN Reason: DRY EYES Atenolol (Tenormin -) 50 mg PO DAILY [facility] Last Admin: 09/30/16 09:25 Dose: 50 mg Benzocaine (Anbesol -) 1 applic MM Q2H PRN PRN Reason: MILD PAIN Diphenhydramine HCl (Benadryl -) 25 mg PO TID PRN PRN Reason: FOR ITCHING Heparin Sodium (Porcine) (Heparin -) 5,000 unit SQ BID [facility] Last Admin: 09/30/16 09:25 Dose: 5,000 unit Ceftriaxone Sodium (Rocephin 1gm Ivpb (Pre-Docked)) 50 mls @ 100 mls/hr IVPB DAILY [facility] Last Admin: 09/30/16 09:25 Dose: 100 mls/hr Sodium Chloride (1/2 Normal Saline) 1,000 mls @ 100 mls/hr IV ASDIR [facility] Last Admin: 09/30/16 05:38 Dose: 100 mls/hr Nystatin (Nystop Powder -) 1 applic TP DAILY [facility] Last Admin: 09/30/16 09:26 Dose: Not Given Pantoprazole Sodium (Protonix -) 20 mg PO DAILY [facility] Last Admin: 09/30/16 09:25 Dose: 20 mg Prednisone (Deltasone -) 10 mg PO DAILY [facility] Last Admin: 09/30/16 09:26 Dose: 10 mg Pregabalin (Lyrica -) 75 mg PO BID [facility] Last Admin: 09/30/16 09:26 Dose: 75 mg Tramadol HCl (Ultram -) 100 mg PO Q8H PRN PRN Reason: PAIN Last Admin: 09/30/16 05:28 Dose: 100 mg Triamcinolone Acetonide (Triamcinolone Acetonide) 1 applic TP BID [facility] Last Admin: 09/30/16 09:26 Dose: Not Given Zolpidem Tartrate (Ambien -) 5 mg PO HS PRN PRN Reason: INSOMNIA - Objective Vital Signs: Vital Signs Temperature 98.2 F 09/30/16 02:31 Pulse Rate 99 H 09/30/16 02:31 Respiratory Rate 20 09/30/16 02:31 Blood Pressure 103/56 09/30/16 02:31 O2 Sat by Pulse Oximetry (%) 97 09/29/16 21:00 Constitutional: Yes: Calm Eyes: Yes: Conjunctiva Clear HENT: Yes: Atraumatic Neck: Yes: Supple Cardiovascular: Yes: S1, S2 Respiratory: Yes: CTA Bilaterally Gastrointestinal: Yes: Normal Bowel Sounds, Soft, Abdomen, Obese Genitourinary: Yes: WNL Musculoskeletal: Yes: WNL Edema: Yes Edema: LLE: Trace, RLE: Trace Neurological: Yes: Oriented Psychiatric: Yes: Oriented Labs: CBC, BMP 09/30/16 06:00 09/30/16 06:00 INR, PTT INR 1.07 (0.82-1.09) 09/27/16 17:04 Problem List - Problems (1) Acute renal failure Code(s): N17.9 - ACUTE KIDNEY FAILURE, UNSPECIFIED Qualifiers: Acute renal failure type: unspecified Qualified Code(s): N17.9 - Acute kidney failure, unspecified (2) Hyperkalemia Code(s): E87.5 - HYPERKALEMIA Assessment/Plan Current Medications Generic Name Dose Route Start Last Admin Trade Name Freq PRN Reason Stop Dose Admin Acetaminophen 650 mg 09/30/16 05:05 Tylenol - PO Q6H PRN FEVER OR PAIN Artificial Tears 1 drop 09/30/16 05:05 Artificial Tears OU QID PRN DRY EYES Atenolol 50 mg 09/30/16 10:00 09/30/16 09:25 Tenormin - PO 50 mg DAILY [facility] Administration Benzocaine 1 applic 09/30/16 05:05 Anbesol - MM Q2H PRN MILD PAIN Diphenhydramine HCl 25 mg 09/30/16 05:05 Benadryl - PO TID PRN FOR ITCHING Heparin Sodium (Porcine) 5,000 unit 09/30/16 10:00 09/30/16 09:25 Heparin - SQ 5,000 unit BID [facility] Administration Ceftriaxone Sodium 50 mls @ 100 mls/hr 09/30/16 10:00 09/30/16 09:25 Rocephin 1gm Ivpb (Pre-Docked) IVPB 100 mls/hr DAILY [facility] Administration Sodium Chloride 1,000 mls @ 100 mls/hr 09/30/16 05:05 09/30/16 05:38 1/2 Normal Saline IV 100 mls/hr ASDIR [facility] Administration Nystatin 1 applic 09/30/16 10:00 09/30/16 09:26 Nystop Powder - TP Not Given DAILY [facility] Pantoprazole Sodium 20 mg 09/30/16 10:00 09/30/16 09:25 Protonix - PO 20 mg DAILY [facility] Administration Prednisone 10 mg 09/30/16 10:00 09/30/16 09:26 Deltasone - PO 10 mg DAILY [facility] Administration Pregabalin 75 mg 09/30/16 10:00 09/30/16 09:26 Lyrica - PO 75 mg BID [facility] Administration Tramadol HCl 100 mg 09/30/16 05:05 09/30/16 05:28 Ultram - PO 100 mg Q8H PRN Administration PAIN Triamcinolone Acetonide 1 applic 09/30/16 10:00 09/30/16 09:26 Triamcinolone Acetonide TP Not Given BID [facility] Zolpidem Tartrate 5 mg 09/30/16 05:05 Ambien - PO HS PRN INSOMNIA Laboratory Tests 09/28/16 15:45 Cyclosporine Trough Pending Impression 1. MARINA 2. hyperkalemia 3. rheumatoid arthritis 4. recent rash from drug allergy 5. hep C 6. pos heb b core 7. UTI Plan - renal function is stabilizing - potassium has been stable - would not restart arb or meloxicam at this point - cyclosporine stopped, levels pending. Pt was supposed to stop it after rash cleared up, which it did - cont low potassium diet for now - will see pt in office - pt will need outpt follow up - MARINA and hyperkalemia likely secondary to meds - will follow - recommend dermatology evaluation - cont with fluids for now Dr Abdul
[2016-09-30 16:59] VITALS: BP 108/74; PULSE 84; TEMP 98.6
[2016-10-01 00:07] LABS: CYCLOSPORINE TROUGH None Detected ng/mL (100-400)
== END 2016-09-30 15:42 | disposition home or self-care (01) | DRG 683 ==
LOC: JER 15:31 → JERBED 17:59 → J4W 09-28 02:07
PROVIDERS: ADMIT Internal Medicine; ATTEND Internal Medicine
DX: N17.9 Acute kidney failure, unspecified (principal); N39.0 Urinary tract infection, site not specified; E87.5 Hyperkalemia; M19.90 Unspecified osteoarthritis, unspecified site; M06.80 Other specified rheumatoid arthritis, unspecified site; I10 Essential (primary) hypertension; K21.9 Gastro-esophageal reflux disease without esophagitis; M54.5 Low back pain; D64.9 Anemia, unspecified; B19.20 Unspecified viral hepatitis C without hepatic coma; M48.00 Spinal stenosis, site unspecified; R26.81 Unsteadiness on feet; B96.20 Unspecified Escherichia coli [E. coli] as the cause of diseases classified elsewhere; R53.1 Weakness; G62.89 Other specified polyneuropathies; Z85.43 Personal history of malignant neoplasm of ovary
CPT/HCPCS: 36415; 70360-TC; 71010-TC; 74176-TC; 76775-TC; 76856-TC; 80048; 80053; 80158; 81003; 81015; 82436; 82550; 82570; 83690; 83735; 83880; 84133; 84300; 84443; 84484; 85025; 85027; 85610; 87086; 87186; 93005; 93010; 97116-GP; 97161-GP; 99285-25; J1644

== ENCOUNTER 2018-04-25 10:18 | Emergency (ER) | payer OTHER ==
[2018-04-25 10:32] VITALS: BP 158/93; PULSE 82; TEMP 98.2; BMI 37.6
[2018-04-25] MEDS ORDERED: ACETAMINOPHEN 500 MG TABLET (FP) PO ONE (11:29)
[2018-04-25] MEDS ORDERED: ACETAMINOPHEN 500 MG TABLET (FP) ONE (11:36)
--- NOTE | 2018-04-25 13:30 | PDOC ---
History of Present Illness - General Chief Complaint: Injury Stated Complaint: FALL Time Seen by Provider: 04/25/18 11:17 - History of Present Illness Initial Comments: 04/25/18 13:24 67-year-old female presents for evaluation after a slip and fall on a wet bathroom floor yesterday. Landing on her by she complains of lower back pain headache and neck pain with right lower extremity radicular symptoms. No loss of bowel or bladder function. She also complains of pelvic pain. 04/25/18 13:25 L 2nd toe pain as well 04/25/18 13:38 2 episodes of vomiting yesterday after fall, vomiting has since resolved and has transitioned to intermittent nausea Past History - Past Medical History Allergies/Adverse Reactions: Allergies Allergy/AdvReac Type Severity Reaction Status Date / Time sulfasalazine AdvReac Severe Rash Verified 04/25/18 10:27 latex AdvReac Mild Itching Verified 04/25/18 10:27 Home Medications: Ambulatory Orders Atenolol [Tenormin -] 50 mg PO DAILY 05/07/11 Ondansetron [Zofran -] 4 mg PO TID 07/10/16 Pregabalin [Lyrica -] 75 mg PO BID 07/10/16 Zolpidem Tartrate [Ambien] 10 mg PO HS 07/10/16 traMADol HCL [Ultram -] 150 mg PO BID 07/10/16 Diphenhydramine [Benadryl Capsule -] 50 mg PO TID #60 tab 07/21/16 Nystatin Powder [Nystop Powder -] 1 applic TP DAILY #1 applic 07/21/16 Pantoprazole Sodium [Protonix -] 20 mg PO DAILY #30 tab 07/21/16 Polyvinyl Alcohol [Artificial Tears] 1 drop OU QID PRN #1 drop 07/21/16 Triamcinolone Acetonide 1 applic TP BID #1 tube 07/21/16 Cefuroxime Axetil [Ceftin -] 500 mg PO Q12H #8 tablet 09/30/16 predniSONE [Deltasone -] 10 mg PO DAILY #0 tab 09/30/16 Anemia: No Asthma: No Cancer: Yes (ovarian) Cardiac Disorders: No CVA: No COPD: No CHF: No Dementia: No Diabetes: No GI Disorders: No Disorders: No HTN: Yes Hypercholesterolemia: No Liver Disease: No Seizures: No Thyroid Disease: No - Surgical History Abdominal Surgery: Yes (LAP BAND 2002) Appendectomy: No Cardiac Surgery: No Cholecystectomy: No Lung Surgery: No Neurologic Surgery: (both cataract) Orthopedic Surgery: No - Immunization History Immunization Up to Date: Yes - Suicide/Smoking/Psychosocial Hx Smoking History: Former smoker Have you smoked in the past 12 months: No If you are a former smoker, when did you quit?: 1997 Information on smoking cessation initiated: No Hx Alcohol Use: No Drug/Substance Use Hx: No Substance Use Type: None Hx Substance Use Treatment: No Review of Systems - Review of Systems ABD/GI: Yes: Nausea, Vomiting Musculoskeletal: Yes: See HPI, Back Pain, Joint Pain, Neck Pain Neurological: Yes: See HPI, Headache, Numbness, Paresthesia, Tingling. No: Ataxia, Dizziness *Physical Exam - Vital Signs Last Vital Signs Temp Pulse Resp BP Pulse Ox 98.2 F 82 18 158/93 99 04/25/18 10:28 04/25/18 10:28 04/25/18 10:28 04/25/18 10:28 04/25/18 10:28 - Physical Exam Comments: 04/25/18 13:26 HEAD: NC/AT EYES: Conjuntiva clear Ears: Canals and TM's normal NOSE: No d/c THROAT: Moist mucous membrances, oral pharanx clear, uvula midline NECK: Supple without adenopathy CARDIAC: S1 S2 LUNGS: CTA Full and Equal breath sounds ABDOMEN: Soft NT ND MS: Full ROM in all joints without edema NEUROLOGIC: No gross sensory or motor deficits, NVID SKIN: Normal color and temperature no lesions or rashes There is 5 out of 5 strength without gross motor deficits in bilateral upper and lower extremities, mild decreased sensation at the medial aspect of the right foot Moderate Sedation - Procedure Monitoring Vital Signs: Procedure Monitoring Vital Signs Temperature 98.2 F 04/25/18 10:28 Pulse Rate 82 04/25/18 10:28 Respiratory Rate 18 04/25/18 10:28 Blood Pressure 158/93 04/25/18 10:28 O2 Sat by Pulse Oximetry (%) 99 04/25/18 10:28 ED Treatment Course - RADIOLOGY Radiology Studies Ordered: Category Date Time Status CERVICAL SPINE CT W/O CONTR [CT] Stat CT Scan 04/25/18 11:[address] WITHOUT CONTRAST [CT] Stat CT Scan 04/25/18 11:[address] WITHOUT CONTRAST [CT] Stat CT Scan 04/25/18 11:29 Completed FOOT-LEFT [RAD] Stat Radiology 04/25/18 11:29 Completed - Medications Given in the ED: ED Medications Discontinued Medications Generic Name Dose Route Start Last Admin Trade Name Nura PRN Reason Stop Dose Admin Acetaminophen 1,000 mg 04/25/18 11:29 04/25/18 11:37 Tylenol - PO 04/25/18 11:30 1,000 mg ONCE ONE Administration Medical Decision Making - Medical Decision Making 04/25/18 13:27 scans and raidographs reviewed no acute fx or pathology 04/25/18 13:29 04/25/18 13:35 no LBP on exam only pelvic pain *DC/Admit/Observation/Transfer Diagnosis at time of Disposition: Concussion, Cervical strain, Lumbar radicular pain, Sprain of toe - Discharge Dispostion Disposition: HOME Condition at time of disposition: Stable Decision to Admit order: No - Referrals Referrals: Maye Leroy MD [Primary Care Provider] - Bishop Appiah DO [Staff Physician] - Carlin Negron MD [Staff Physician] - - Patient Instructions Printed Discharge Instructions: DI for Closed Head Injury, DI for Concussion, Concussion, Postconcussion Syndrome, DI for Postconcussion Syndrome, DI for Toe Sprain, Lumbar Radiculopathy, DI for Lumbar Radiculopathy, DI for Cervical Muscle Strain Additional Instructions: Because of the other medications your own you may only take Tylenol for pain. Do not take any anti-inflammatory such as Advil Motrin Aleve or ibuprofen. Follow-up with orthopedic surgery in 1-2 days for further evaluation and treatment options of your back and neck pain as well as her toe injury. Neurology follow-up in one to 2 days for further evaluation and treatment of your concussion. Return to the emergency room for worsening symptoms. No strenuous activity until cleared by neurology - Post Discharge Activity
[2018-04-25] MEDS ORDERED: CYCLOBENZAPRINE HCL 10 MG TABLET (FP) PO ONE (13:49)
[2018-04-25] MEDS ORDERED: CYCLOBENZAPRINE HCL 10 MG TABLET (FP) ONE (13:50)
== END 2018-04-25 13:52 | disposition home or self-care (01) ==
LOC: JERFT 10:18
DX: S16.1XXA Strain of muscle, fascia and tendon at neck level, initial encounter (principal); M54.16 Radiculopathy, lumbar region; S06.0X0A Concussion without loss of consciousness, initial encounter; W01.0XXA Fall on same level from slipping, tripping and stumbling without subsequent striking against object, initial encounter; Y93.89 Activity, other specified; Y92.031 Bathroom in apartment as the place of occurrence of the external cause; Y99.8 Other external cause status
CPT/HCPCS: 70450-TC; 72125-TC; 72192-TC; 73630-TC-LT; 99281-25

== ENCOUNTER 2022-05-04 12:54 | Emergency (ER) | payer OTHER ==
[2022-05-04 13:25] VITALS: TEMP 97.7; BMI 38.7
[2022-05-04] MEDS ORDERED: DIPHTH,PERTUSS(ACELL),TET 0.5 ML DISP.SYRIN IM ONE ×2 (14:31→14:37)
[2022-05-04] MEDS ORDERED: ACETAMINOPHEN 325 MG TABLET (FP) PO ONE (14:41)
[2022-05-04] MEDS ORDERED: ACETAMINOPHEN 325 MG TABLET (FP) ONE (14:42)
[2022-05-04] MEDS ORDERED: oxyCODONE HCL 5 MG TABLET PO ONE (17:35)
[2022-05-04] MEDS ORDERED: oxyCODONE HCL 5 MG TABLET ONE (17:55)
[2022-05-04 18:37] VITALS: BP 141/71; PULSE 71; RESP 18
== END 2022-05-04 18:38 | disposition home or self-care (01) ==
LOC: JER 12:54
PROC: 3E0234Z Introduction of Serum, Toxoid and Vaccine into Muscle, Percutaneous Approach (ICD-10-PCS; principal; 2022-05-04)
DX: R51.9 Headache, unspecified (principal); M54.50 Low back pain, unspecified; M25.561 Pain in right knee; M25.562 Pain in left knee; W01.0XXA Fall on same level from slipping, tripping and stumbling without subsequent striking against object, initial encounter
CPT/HCPCS: 70450-TC; 70486-TC; 71045-TC-FY; 72125-TC; 72128-TC; 72131-TC; 72170-TC-FY; 73110-TC-RT-FY; 73130-TC-RT-FY; 73562-TC-LT-FY; 73562-TC-RT-FY; 90471; 90715; 99285-25

== ENCOUNTER 2023-10-16 03:25 | Observation (INO) | payer OTHER ==
[2023-10-16] MEDS ORDERED: ACETAMINOPHEN INJECTION 100 ML IVPB ONE (04:11)
[2023-10-16] MEDS: ACETAMINOPHEN 1000 MG/100 ML BAG IVPB ONE (05:11)
[2023-10-16 05:24] LABS: BASO % 0.7 % (0-2.0); EOS % 2.6 % (0-4.5); HEMATOCRIT 32.8 % (32.4-45.2); HEMOGLOBIN 10.7 GM/dL (10.7-15.3); LYMPH % 18.1 % (8-40); MCH 33.8 pg (25.7-33.7); MCHC 32.5 g/dl (32.0-36.0); MEAN CELL VOLUME 103.7 fl (80-96); MEAN PLT VOLUME 9.7 fl (7.5-11.1); MONO % 13.8 % (3.8-10.2); NEUT % 64.8 % (42.8-82.8); PLATELET COUNT 205 10^3/uL (134-434); RBC 3.16 M/mm3 (3.60-5.2); RDW 14.4 % (11.6-15.6); WHITE BLOOD COUNT 11.3 K/mm3 (4.0-10.0)
[2023-10-16 05:32] LABS: POTASSIUM 4.3 mmol/L (3.5-5.1)
[2023-10-16 05:34] LABS: CALCIUM 8.8 mg/dL (8.5-10.1)
[2023-10-16 05:35] LABS: ALBUMIN 3.3 g/dl (3.4-5.0); BLOOD UREA NITROGEN 29.9 mg/dL (7-18)
[2023-10-16 05:40] LABS: BILIRUBIN,TOTAL 0.7 mg/dL (0.2-1); TOT PROT 6.6 g/dl (6.4-8.2)
[2023-10-16 05:43] LABS: N-TERMINAL BNP 724.6 pg/ml (5-125)
[2023-10-16] MEDS ORDERED: PREGABALIN 50 MG CAPSULE ONE (12:22)
[2023-10-16] MEDS: ETHACRYNIC ACID 25 MG TABLET PO SCH (12:24)
[2023-10-16] MEDS: ATENOLOL 50 MG TABLET (FP) PO SCH (12:24)
[2023-10-16] MEDS: PREGABALIN 50 MG CAPSULE PO SCH (12:24)
[2023-10-16] MEDS ORDERED: traMADol HCL 50 MG TABLET ONE (12:50)
[2023-10-16] MEDS: traMADol HCL 50 MG TABLET PO PRN (13:22)
[2023-10-16 14:10] LABS: EPI CELLS 29 /uL (0-25.1); HYALINE CASTS 0 /uL (0-3.1); URINE APPEARANCE CLEAR; URINE BACTERIA 176 /uL (0-1359); URINE BILIRUBIN NEGATIVE (NEGATIVE); URINE COLOR YELLOW; URINE GLUCOSE (UA) NEGATIVE (NEGATIVE); URINE KETONE NEGATIVE (NEGATIVE); URINE LEUK ESTERASE 1+ (NEGATIVE); URINE NITRITE NEGATIVE (NEGATIVE); URINE PROTEIN NEGATIVE (NEGATIVE); URINE RBC 11 /uL (0-23.9); URINE UROBILINOGEN 0.2 mg/dL (0.2-1.0); URINE WBC 44 /uL (0-25.8)
[2023-10-16 18:00] VITALS: BMI 40.9
[2023-10-16] MEDS: ROSUVASTATIN CA 5 MG TABLET PO SCH (21:17)
[2023-10-16] MEDS: ZOLPIDEM TARTRATE 5 MG TABLET PO PRN (22:22)
[2023-10-16] MEDS: ACETAMINOPHEN 1000 MG/100 ML BAG IVPB PRN (22:54)
[2023-10-17] MEDS: traMADol HCL 50 MG TABLET PO PRN (10:07)
[2023-10-17] MEDS: LIDOCAINE 4% PATCH TP SCH (16:57)
[2023-10-17] MEDS: LIDOCAINE PATCH REMOVAL MC SCH (22:26)
[2023-10-18 08:24] LABS: POTASSIUM 4.3 mmol/L (3.5-5.1)
[2023-10-18 08:29] LABS: CALCIUM 9.2 mg/dL (8.5-10.1)
[2023-10-18 08:32] LABS: CREATININE 1.4 mg/dL (0.55-1.3)
[2023-10-19 14:04] LABS: BASO % 0.4 % (0-2.0); EOS % 4.6 % (0-4.5); HEMATOCRIT 30.1 % (32.4-45.2); HEMOGLOBIN 9.9 GM/dL (10.7-15.3); LYMPH % 27.3 % (8-40); MCH 33.6 pg (25.7-33.7); MEAN PLT VOLUME 9.4 fl (7.5-11.1); MONO % 15.7 % (3.8-10.2); PLATELET COUNT 218 10^3/uL (134-434); RBC 2.95 M/mm3 (3.60-5.2); RDW 13.9 % (11.6-15.6); WHITE BLOOD COUNT 8.9 K/mm3 (4.0-10.0)
[2023-10-19 14:21] LABS: POTASSIUM 4.2 mmol/L (3.5-5.1)
[2023-10-19 14:23] LABS: CALCIUM 9.2 mg/dL (8.5-10.1)
[2023-10-19 14:24] LABS: BLOOD UREA NITROGEN 18.1 mg/dL (7-18)
[2023-10-19 14:25] LABS: ALBUMIN 2.6 g/dl (3.4-5.0)
[2023-10-19 14:26] LABS: URIC ACID 9.1 mg/dL (2.6-7.2)
[2023-10-19 14:27] LABS: CREATININE 1.4 mg/dL (0.55-1.3)
[2023-10-19 14:28] LABS: BILIRUBIN,TOTAL 0.6 mg/dL (0.2-1); TOT PROT 6.5 g/dl (6.4-8.2)
[2023-10-19 14:54] LABS: ERYTHROCYTE SEDIMENTATION RATE 114 mm/hr (0-30)
[2023-10-19] MEDS: predniSONE 20 MG TABLET (UD) PO ONE (19:44)
[2023-10-20 07:25] VITALS: RESP 20
[2023-10-20 10:09] LABS: POTASSIUM 4.5 mmol/L (3.5-5.1)
[2023-10-20 10:12] LABS: BLOOD UREA NITROGEN 17.4 mg/dL (7-18)
[2023-10-20 10:15] LABS: CALCIUM 9.4 mg/dL (8.5-10.1)
[2023-10-20 10:16] LABS: CREATININE 1.3 mg/dL (0.55-1.3)
[2023-10-20] MEDS: predniSONE 20 MG TABLET (UD) PO ONE (13:07)
[2023-10-20] MEDS: POLYETHYLENE GLYCOL (HEALTHYLAX) 3350 17 GM PACKET PO SCH (13:07)
[2023-10-20] MEDS: ACETAMINOPHEN 1000 MG/100 ML BAG IVPB ONE (14:55)
[2023-10-20 15:36] VITALS: BP 126/87; PULSE 73; TEMP 98.6
== END 2023-10-20 16:10 | disposition home or self-care (01) ==
LOC: JER 03:25 → JERBED 06:53 → J7W 16:49
PROVIDERS: ADMIT Internal Medicine; ATTEND Internal Medicine
PROC: 3E033NZ Introduction of Analgesics, Hypnotics, Sedatives into Peripheral Vein, Percutaneous Approach (ICD-10-PCS; principal; 2023-10-16)
DX: I12.9 Hypertensive chronic kidney disease with stage 1 through stage 4 chronic kidney disease, or unspecified chronic kidney disease (principal); N18.9 Chronic kidney disease, unspecified; N17.9 Acute kidney failure, unspecified; W06.XXXA Fall from bed, initial encounter; Y93.89 Activity, other specified; Y92.092 Bedroom in other non-institutional residence as the place of occurrence of the external cause; B19.20 Unspecified viral hepatitis C without hepatic coma; Z90.79 Acquired absence of other genital organ(s); G89.29 Other chronic pain; M54.50 Low back pain, unspecified; M48.00 Spinal stenosis, site unspecified; K21.9 Gastro-esophageal reflux disease without esophagitis; Z88.8 Allergy status to other drugs, medicaments and biological substances; Z91.040 Latex allergy status; Z87.891 Personal history of nicotine dependence; M06.9 Rheumatoid arthritis, unspecified
CPT/HCPCS: 0241U-QW; 36415; 71045-TC-FY; 72040-TC; 72100-TC-FY; 73521-TC-FY; 73560-TC-LT-FY; 73560-TC-RT-FY; 76775-TC; 80048; 80053; 81003; 83880; 84484; 84550; 85025; 85651; 93005; 93010; 93970-TC; 96374; 96376; 97116-GP; 97161-GP; 99285-25; G0378; J0131